=== PATIENT | male | born 1940 | race Caucasian/White ===

== ENCOUNTER → 2016-11-29 | Outpatient (CLI) | payer OTHER | LOC: MMPC 09:00 | PROVIDERS: ATTEND Family Medicine | DX: F51.05 Insomnia due to other mental disorder (principal); F32.0 Major depressive disorder, single episode, mild | CPT/HCPCS: 99213; G0463 ==

== ENCOUNTER 2016-12-18 11:55 | Emergency (ER) | payer OTHER ==
[2016-12-18] MEDS ORDERED: NORMAL SALINE 10 ML SYRINGE FLUSH IVP PRN (12:21)
[2016-12-18] MEDS ORDERED: MORPHINE SULFATE 4 MG/1 ML IVP ONE ×2 (12:21→13:59)
[2016-12-18] MEDS ORDERED: Sodium Chloride 0.9% 1,000 ML PRIMARY IV ONE (12:22)
[2016-12-18 13:20] LABS: BASOPHILS # (AUTO) 0.03 10*3/UL; BASOPHILS % (AUTO) 0.4 % (0-1); EOSINOPHILS % (AUTO) 3.8 % (0-8); HEMATOCRIT 29.3 % (42.0-52.0); HEMOGLOBIN 9.6 g/dL (14.0-18.0); IMM GRAN % (AUTO) 3.2 % (0-5); IMM GRAN# (AUTO) 0.27 10*3/UL; LYMPHOCYTES # (AUTO) 1.14 10*3/uL; LYMPHOCYTES % (AUTO) 13.6 % (10-50); MEAN CORPUSCULAR HEMOGLOBIN 30.7 PG (27-31); MEAN CORPUSCULAR HGB CONC 32.8 g/dL (33-37); MEAN PLATELET VOLUME 7.7 FL (7.4-12.2); MONOCYTES # (AUTO) 0.89 10*3/UL (0.3-0.8); MONOCYTES % (AUTO) 10.6 % (5-15); NEUTROPHILS # (AUTO) 5.73 10*3/UL; NEUTROPHILS % (AUTO) 68.4 % (50-80); RED BLOOD COUNT 3.13 10^6/uL (4.70-6.10); WHITE BLOOD COUNT 8.38 10^3/uL (4.8-10.8)
[2016-12-18 13:23] LABS: PLATELET MORPHOLOGY COMMENT NORMAL MORPHOLOGY (NORM)
[2016-12-18 13:33] LABS: BILIRUBIN,TOTAL 0.4 mg/dL (0.3-1.2); BUN/CREATININE RATIO 9.23 (6-20); CALCIUM 8.5 mg/dL (8.7-10.7); CREATININE 1.3 mg/dL (0.70-1.50); POTASSIUM 3.7 meq/L (3.8-5.2); TOTAL PROTEIN 5.4 g/dL (6.1-8.0)
[2016-12-18 14:03] VITALS: TEMP 96.9
--- NOTE | 2016-12-18 14:07 | PDOC ---
General Adult HPI - General Chief Complaint: General Medical Stated Complaint: COMPLICATIONS S/P SURGERY Date Seen by Provider: 12/18/16 Time Seen by Provider: 13:00 - History of Present Illness Initial Comment: Patient is a very nice 76-year-old gentleman presents to the emergency department with severe pain in his abdomen. Patient states that he had prostate cancer and radiation therapy ended up with radiation inflammation to his bladder and inability to void appropriately and some renal failure secondary to all this therefore ended up having a cystectomy with ileal conduit formation about 2 weeks ago. He ended up with a protracted hospitalization in [place] at the [facility] where he had the procedure done due to some postoperative issues. Ultimately he was let go Sunday i.e. 2 days ago from the hospital and went home and was seemingly doing well. Unfortunately started to experience some pink tinge to his urine last night and then hetal blood in his urine this morning with severe pain associated in his abdomen and around the stoma site this morning. This has continued to be a problem he's had diminished output from the stoma since he noticed a substantial blood. He denies any fever or chills. He denies any flank pain per se. He has not had nausea or vomiting he has not had substantial diarrhea or other bowel changes. Have you received a tetanus shot in the past 10 years?: Unknown - Patient Home Medications Home Medications: Home Medications Aspirin 1 tab PO BID tab 06/01/14 Fenofibrate Nanocrystallized [Fenofibrate] 1 tab PO DAILY tab 06/01/14 Oxybutynin Chloride [Oxybutynin Chloride ER] 1 tab PO BID tab 06/01/14 Ascorbic Acid [Vitamin C] 1 tab PO DAILY 01/25/16 Cyclobenzaprine HCl [Flexeril] 1 tab PO BEDTIME PRN 01/25/16 Dexlansoprazole [Dexilant] 1 tab PO DAILY 01/25/16 Fluticasone Nasal [place] 0.05% [Flonase Nasal [place] 0.05%] 2 spray FELPIA DAILY PRN 01/25/16 Glucosamine/D3/Boswellia Jenn [Osteo Bi-Flex Caplet] 1 tab PO BID 01/25/16 Metamucil Unknown Strength 4 cap PO DAILY 01/25/16 Multivitamin [Multivitamins] 1 tab PO DAILY 01/25/16 Rover-3 Fatty Acids/Fish Oil [Fish Oil 1,000 mg Capsule] 1 tab PO BID 01/25/16 Vitamin B Complex 1 cap PO DAILY 01/25/16 Sotalol [Sorine] 40 mg PO BID #60 tab 01/29/16 Cetirizine HCl [Zyrtec] 10 mg PO DAILY PRN tab 02/07/16 Lactobacillus Combination No.4 [Probiotic] 1 each PO DAILY cap 02/07/16 Mineral Oil [Topical Light Mineral Oil] 25 ml TOPICAL DAILY 02/07/16 Niacin 5,000 mg PO QD tab 02/07/16 Zolpidem Tartrate [Ambien Cr] 1 tab PO QHS PRN #90 tab 08/03/16 Apixaban [Eliquis] 5 mg PO BID #60 tab 08/17/16 Mirtazapine [Remeron] 30 mg PO DAILY #30 tab 10/19/16 - Patient Allergies Allergies/Adverse Reactions: Allergies Allergy/AdvReac Type Severity Reaction Status Date / Time No Known Allergies Allergy Verified 12/18/16 13:04 Past Medical History - heen HEENT History: Denies History, Hard of Hearing Additional HEENT History: READING GLASSES. HAD CATARACT REMOVED Cardiovascular History: Hypertension, Hyperlipidemia Respiratory History: Denies History Additional Respiratory History: SEASONAL ALLERGIES Gastrointestinal History: GERD Additional Genitourinary History: HAD PROSTATECTOMY MARCH 2015/ POST SX INCONTINECNE. HAD PROCEDURE DONE WHERE THEY PLACE A "SHUT OFF VALVE" IN [place]. HE MUST OPEN VALVE IN ORDER TO VOID Endocrine History: Denies History Musculoskeletal History: Arthritis, Back Pain Prosthesis or Implant: Yes (LOWER BACK) Neurological History: Migraines Additional Neurological History: LAST MONTH DEC Blood Disorders: Denies History Psychiatric History: Denies History History of Sexually Transmitted Diseases: No Cancer History: Other (please comment) Cancer Treatment / Date(s) of Treatment: SURGERY History of MDRO: No History of Other Communicable Diseases: No Alcohol Use: Rarely Substance Use Type: None Previous Surgical History: Yes Type / Date of Surgery: MARCH 2015 PROSTATECTOMY/ AUGUST 2015 "VALVE" IN [place] / LUMBAR FUSION/ KELI/ EGD/COLONOSCOPY. left hernia/foot surgery/gallbladder/ prosthesis removal/right knee scope Anesthesia Reactions: Yes (PONV/HAS SCOPE PATCH FROM DR LAN FOR SX) Malignant Hyperthermia: No Significant Family History: No pertinent family hx Past Medical History Reviewed: Reviewed - No Changes ROS - Limitations ROS Limitations: No Limitations Constitution: DENIES: Chills, Fever Cardiovascular: REPORTS: Denies Cardiac Symptoms Respiratory: REPORTS: Denies Resp Symptoms Neurological: REPORTS: Denies Neuro Symptoms General Adult Exam - General Appearance General Appearance: POSITIVE: Alert, Cooperative, No Acute Distress - HEENT HEENT: POSITIVE: Head Inspection Nml, Eyes Inspection Nml, Ears Inspection Nml - Neck Neck: POSITIVE: Normal Inspection - Respiratory Respiratory: POSITIVE: No Respiratory Distress, Breath Sounds Normal - Cardiovascular Cardiovascular: POSITIVE: Regular Rate & Rhythm, No Murmur - Abdomen Additional Abdominal Details: Patient has some mild abdominal distention and some tenderness to palpation especially around the stoma site and also somewhat diffusely in the right side of his abdomen. He does have some rebound and guarding associated with this. - Back Back: NEGATIVE: CVA Tenderness - Skin Skin: POSITIVE: Normal Color, Warm, Dry - Neurological / Psychological Neurological: POSITIVE: Affect Apporpriate, Oriented X3 General Adult Progress - Results Reviewed by me Xrays/CTs/US Reviewed by me: Yes Radiology Findings: CT scan of the abdomen show some postoperative changes with some mild perinephric fat stranding and no clear evidence of obstruction. The CT report is read directly to consulting urologist. Lab Results Reviewed: Yes Lab Results:: Laboratory Results 12/18/16 Range/Units 13:15 WBC 8.38 (4.8-10.8) 10^3/uL RBC 3.13 L (4.70-6.10) 10^6/uL Hgb 9.6 L (14.0-18.0) g/dL Hct 29.3 L (42.0-52.0) % MCV 93.6 H (80-90) FL MCH 30.7 (27-31) PG MCHC 32.8 L (33-37) g/dL RDW Std Deviation 49.3 (39-50) fL RDW Coeff of Jeanmarie 15.0 H (11.5-14.5) % Plt Count 583 H (140-350) 10*3/uL MPV 7.7 (7.4-12.2) FL Immature Gran % (Auto) 3.2 (0-5) % Neut % (Auto) 68.4 (50-80) % Lymph % (Auto) 13.6 (10-50) % Gibson % (Auto) 10.6 (5-15) % Eos % (Auto) 3.8 (0-8) % Baso % (Auto) 0.4 (0-1) % Immature Gran # (Auto) 0.27 10*3/UL Neut # (Auto) 5.73 10*3/UL Lymph # (Auto) 1.14 10*3/uL Gibson # (Auto) 0.89 H (0.3-0.8) 10*3/UL Eos # (Auto) 0.32 10*3/UL Baso # (Auto) 0.03 10*3/UL WBC Morphology Comment Normal morphology (NORM) Plt Morphology Comment Normal morphology (NORM) RBC Morph Comment Normal morphology (NORM) Sodium 141 (135-145) meq/L Potassium 3.7 L (3.8-5.2) meq/L Chloride 106 (98-112) meq/L Carbon Dioxide 23 (23-33) meq/L Anion Gap 12 (5-20) BUN 12 (7-22) mg/dL Creatinine 1.3 (0.70-1.50) mg/dL Estimated GFR (>60 ml/min/1.73m(2)) BUN/Creatinine Ratio 9.23 (6-20) Glucose 109 (78-110) mg/dL Calculated Osmolality 292.0 (267-292) mOsm/kg Calcium 8.5 L (8.7-10.7) mg/dL Total Bilirubin 0.4 (0.3-1.2) mg/dL AST 21 (21-57) IU/L ALT 43 (21-72) IU/L Alkaline Phosphatase 49 (38-126) IU/L Total Protein 5.4 L (6.1-8.0) g/dL Albumin 3.0 L (3.5-4.8) g/dL Globulin 2.4 L (2.50-4.10) g/dL Albumin/Globulin Ratio 1.20 L (1.3-2.0) mg/g - Patient's Progress MDM / ED Course: Patient is feeling better now that he's had some IV fluids some pain medication and after flushing his ileal conduit. I have discussed his case a couple times with his urologist in [place] and at this time she feels confident that we could discharge the patient home watching closely if he worsens at all come back to the emergency department for reevaluation. If he feels like he is doing more poorly than she would be glad to accept him for readmission there. Patient feels confident that he is doing well enough to go home. Patient was evaluated here in the emergency department labs appeared to be very benign white count was normal creatinine was normal CT scan of his abdomen and pelvis was performed which showed no substantial worrisome findings and he had pretty normal output into his stoma bag that was somewhat blood-tinged but of adequate volume after we flushed his ileal conduit with 100 mL of normal saline and a small Golden catheter. Ultimately given that his abdominal pain is improved he has adequate urine output out of his stoma even though it does have some dark appearing blood in it his urologist feels that with benign CT scan in addition to these other findings that he should be safe to be discharged and monitored. He can call to their clinic for further follow-up if he does not feel that he is improving as well as he should or he can return here to the emergency department for reevaluation if he worsens acutely. Patient Care Time - Estimated PCT Patient Care Time (In Minutes): 50 Vital Signs - Recent Vital Signs Vital Signs: Vital Signs (Last 8 hours) Temp Pulse Resp BP Pulse Ox 12/18/16 12:01 96.9 F 73 16 150/80 98 - VS Reviewed Vital Signs Reviewed: Yes Discharge Clinical Impression: Hematuria Abdominal pain Qualifiers: Abdominal location: unspecified location Qualifier Code: (R10.9) Unspecified abdominal pain Discharge Disposition: Discharged to Home Condition: Serious Additional Instructions: Your case has been discussed with your urologist in [place] and recommendation at this point is to watch her symptoms closely. If you have further issues or questions do not hesitate to contact your urologist tomorrow morning and report how you're doing. If however you become substantially worse or are having increasing pain fevers or other substantial complaints do not hesitate to return to the emergency department here for further evaluation. You can continue to use her pain medication but try to make sure your stools do not become hard or you do not become constipated. Make sure you're drinking plenty of fluid to keep your kidneys and ileal conduit flushing. Follow Up With: AROLDO IQBAL [Primary Care Provider] -
--- NOTE | 2016-12-18 16:26 | DI ---
HISTORY: Abdominal pain and bleeding with ileal conduit. COMPARISON: None available. TECHNIQUE: Contiguous axial enhanced images of the abdomen and pelvis were obtained from the lung ba ses through the ischial tuberosities. The images were then submitted for interpretation. FINDINGS: The heart size is normal. There is evidence of minimal atelectasis. The liver and spleen are normal in size and contour and demonstrate no focal abnormalities. There ar e no calcified gallstones identified. The pancreas and adrenal glands are normal. The kidneys are i n anatomic position. Post surgical changes with urinary diversion to the ilium and ureter stent are seen. There is a mild renal pelvis with ureter wall thickening and mild stranding in the perinephric fat. No contrast extravasation. An outflow catheter from the ilium is seen. No contrast accumulat ion in the ilium. The visualized vascular structures are normal. The visualized bowel, mesentery, and omentum are unremarkable without evidence of an acute obstructio n or perforation. A reservoir is seen in the lower pelvis. Status post prostatectomy and cystectomy . Visible penile prosthesis. No abnormal fluid collections. IMPRESSION: 1. Post surgical changes with urinary diversion to the ilium and ureter stent. There is a mild renal pelvis with ureter wall thickening and mild stranding in the perinephric fat. No contrast extravasa tion. An outflow catheter from the ilium is seen. No contrast accumulation in the ilium. 2. A reservoir is seen in the lower pelvis. 3. Status post prostatectomy and cystectomy. Visible penile prosthesis. No abnormal fluid collectio ns. 4. Minimal atelectasis. 5. No other acute findings. NOTIFICATION: The above findings were phoned to Corinne Granger in the ER Department on 12/18/2016 at 06:32 PM EST.
[2016-12-18 18:38] VITALS: RESP 18
== END 2016-12-18 18:25 | disposition home or self-care (01) ==
LOC: ER 11:55
DX: R31.9 Hematuria, unspecified (principal); L76.22 Postprocedural hemorrhage of skin and subcutaneous tissue following other procedure; R10.31 Right lower quadrant pain
CPT/HCPCS: 74177; 80053; 85025; 99283; J2270; J7030

== ENCOUNTER → 2016-12-28 | Outpatient (CLI) | payer OTHER ==
--- NOTE | 2016-12-28 14:50 | EKG ---
[facility] Measurements Intervals [place] Rate: 88 P: 35 UT: 179 QRS: 15 QRSD: 104 T: 43 QT: 373 QTc: 418 Interpretive Statements SINUS RHYTHM Compared to ECG 08/28/2016 16:51:20 Myocardial infarct finding no longer present Electronically Signed On 12-28-16 14:55:38 MST by Ugo Jones [email or web address]
== END ==
LOC: EKG 14:50
PROVIDERS: ATTEND Physician Assistant Medical
DX: I20.9 Angina pectoris, unspecified (principal); R06.02 Shortness of breath
CPT/HCPCS: 93005; 93010

== ENCOUNTER → 2017-01-15 | Outpatient (CLI) | payer OTHER ==
--- NOTE | 2017-01-15 14:24 | DI ---
CT ABDOMEN SCAN WITH IV CONTRAST, 01/15/2017 12:38 PM : Clinical History: Radiation cystitis. Previous Exam: 12/18/2016. Scans are performed from the lower lung bases through the liver and kidneys with IV contrast. 60 ml o f Isovue 300 was injected IV. The lung bases are clear. Coronary artery calcifications are present in the LAD and first diagonal br anch, the left circumflex artery, and throughout the right coronary artery. The liver is normal. The patient is status post cholecystectomy. There is no abnormality of the spleen, pancreas, and adrenal glands. Both kidneys are normal in size, shape, position and contour. There is no hydronephrosis or h ydroureter. Both ureteral stents have been removed. No renal or ureteral calculi are present. The pat ient has an ileal conduit. There are no abnormal retrocrural or periaortic nodes. No ascites is prese nt. READIN. Since the previous exam, both ureteral stents have been removed. There is no hydronephrosis or hy droureter. No renal or ureteral calculi are identified. The patient has an ileal conduit. 2. The exam is otherwise normal. CT PELVIS SCAN WITH IV CONTRAST, 01/15/2017 12:38 PM: Clinical History: See above. Previous Exam: 12/18/2016. Scans are performed from just superior to the umbilicus to the symphysis pubis with IV contrast. This is the same bolus of contrast used for the CT scans of the abdomen. Scans through the lower abdomen and pelvis show no masses or abnormal fluid collections. There is no adenopathy. The appendix is quite small in caliber but normal. The small bowel is unremarkable except for the presence of an ileal conduit in the right lower quadrant. This conduit would be difficult to identify without the assistance from the previous CT scan that had bilateral ureteral catheters pres ent. The colon is normal. There are no hernias. The seminal vesicles are not visualized. There is a s oft tissue structure that may represent a collapsed bladder. The patient has bilateral penile implant s with an apparent fluid reservoir located just deep to the lower portion of the left rectus abdomini s muscle and a second component of this mechanism located in the right scrotal sac. READIN. The seminal vesicles are not visualized and may be surgically absent. There is a soft tissue dens ity that may represent either scar tissue following removal of the bladder or this is the collapsed b ladder. Bilateral penile implants are present. 2. The exam is otherwise normal.
== END ==
LOC: CT 12:30
PROVIDERS: ATTEND Urology
DX: N30.40 Irradiation cystitis without hematuria (principal)
CPT/HCPCS: 74177

== ENCOUNTER → 2017-01-15 | Outpatient (CLI) | payer OTHER ==
[2017-01-15 16:31] LABS: ASPARTATE AMINO TRANSFERASE 27 IU/L (21-57); BILIRUBIN,TOTAL 0.4 mg/dL (0.3-1.2); BLOOD UREA NITROGEN 23 mg/dL (7-22); BUN/CREATININE RATIO 13.52 (6-20); CALCIUM 10.1 mg/dL (8.7-10.7); CHLORIDE 108 meq/L (98-112); CREATININE 1.7 mg/dL (0.70-1.50); GLUCOSE 154 mg/dL (78-110); POTASSIUM 4.9 meq/L (3.8-5.2); SODIUM 136 meq/L (135-145); TOTAL PROTEIN 6.5 g/dL (6.1-8.0)
[2017-01-15 16:39] LABS: BASOPHILS # (AUTO) 0.02 10*3/UL; BASOPHILS % (AUTO) 0.3 % (0-1); HEMATOCRIT 35.2 % (42.0-52.0); HEMOGLOBIN 11.6 g/dL (14.0-18.0); IMM GRAN % (AUTO) 0.2 % (0-5); IMM GRAN# (AUTO) 0.01 10*3/UL; LYMPHOCYTES # (AUTO) 1.69 10*3/uL; LYMPHOCYTES % (AUTO) 25.9 % (10-50); MEAN CORPUSCULAR HEMOGLOBIN 29.4 PG (27-31); MEAN PLATELET VOLUME 9.9 FL (7.4-12.2); MONOCYTES # (AUTO) 0.67 10*3/UL (0.3-0.8); MONOCYTES % (AUTO) 10.3 % (5-15); NEUTROPHILS # (AUTO) 4.01 10*3/UL; NEUTROPHILS % (AUTO) 61.3 % (50-80); RDW COEFFICIENT OF VARIATION 15.8 % (11.5-14.5); RED BLOOD COUNT 3.94 10^6/uL (4.70-6.10); WHITE BLOOD COUNT 6.53 10^3/uL (4.8-10.8)
[2017-01-15 16:41] LABS: PLATELET MORPHOLOGY COMMENT NORMAL MORPHOLOGY (NORM)
== END ==
LOC: MOB LAB 14:48
PROVIDERS: ATTEND Family Medicine
DX: Z48.816 Encounter for surgical aftercare following surgery on the genitourinary system (principal); I48.91 Unspecified atrial fibrillation; N30.40 Irradiation cystitis without hematuria; Z98.890 Other specified postprocedural states
CPT/HCPCS: 36415; 74177; 80053; 85025; 99213; G0463

== ENCOUNTER → 2017-01-18 | Outpatient (CLI) | payer OTHER ==
[2017-01-18 16:30] LABS: BILIRUBIN,URINE SMALL (NEG); CLARITY,URINE CLEAR (CLEAR); GLUCOSE, URINE (UA) NEGATIVE (NEG); LEUKOCYTE ESTERASE ,URINE MODERATE (NEG); NITRATE,URINE NEGATIVE (NEG); OCCULT BLOOD,URINE LARGE (NEG); PROTEIN,URINE 100 mg/dl (NEG); UROBILINOGEN,URINE 0.2 EU/dL (0.2)
[2017-01-18 17:04] LABS: URINE SAMPLE TYPE PEE BAG COLLECTION
[2017-01-18 17:26] LABS: BACTERIA,URINE FEW; SQUAMOUS EPITHELIAL CELL,UR RARE; WBC,URINE 20-30
== END ==
LOC: MOB LAB 16:03
PROVIDERS: ATTEND Family Medicine
DX: R31.9 Hematuria, unspecified (principal)
CPT/HCPCS: 81001

== ENCOUNTER → 2017-01-22 | Outpatient (CLI) | payer OTHER | LOC: LAB 10:08 | PROVIDERS: ATTEND Family Medicine | DX: R31.9 Hematuria, unspecified (principal); R82.99 Other abnormal findings in urine | CPT/HCPCS: 87077; 87088; 87186 ==

== ENCOUNTER → 2017-02-12 | Outpatient (CLI) | payer OTHER ==
[2017-02-12 14:57] LABS: BASOPHILS # (AUTO) 0.01 10*3/UL; BASOPHILS % (AUTO) 0.2 % (0-1); EOSINOPHILS # (AUTO) 0.12 10*3/UL; EOSINOPHILS % (AUTO) 1.8 % (0-8); HEMATOCRIT 32.1 % (42.0-52.0); HEMOGLOBIN 10.7 g/dL (14.0-18.0); LYMPHOCYTES # (AUTO) 1.97 10*3/uL; MEAN CORPUSCULAR HEMOGLOBIN 27.9 PG (27-31); MEAN CORPUSCULAR HGB CONC 33.3 g/dL (33-37); MEAN CORPUSCULAR VOLUME 83.6 FL (80-90); MEAN PLATELET VOLUME 9.4 FL (7.4-12.2); MONOCYTES # (AUTO) 0.83 10*3/UL (0.3-0.8); MONOCYTES % (AUTO) 12.6 % (5-15); NEUTROPHILS # (AUTO) 3.61 10*3/UL; NEUTROPHILS % (AUTO) 54.9 % (50-80); RED BLOOD COUNT 3.84 10^6/uL (4.70-6.10)
[2017-02-12 15:00] LABS: PLATELET MORPHOLOGY COMMENT NORMAL MORPHOLOGY (NORM); RBC MORPHOLOGY COMMENT NORMAL MORPHOLOGY (NORM); WBC MORPHOLOGY COMMENT NORMAL MORPHOLOGY (NORM)
[2017-02-12 15:34] LABS: MAGNESIUM 1.3 mg/dL (1.6-2.4); SERUM ALBUMIN 3.5 g/dL (3.5-4.8)
== END ==
LOC: MOB LAB 13:57
PROVIDERS: ATTEND Family Medicine
DX: I48.91 Unspecified atrial fibrillation (principal); I10 Essential (primary) hypertension; E78.5 Hyperlipidemia, unspecified; G43.A0 Cyclical vomiting, in migraine, not intractable; J30.1 Allergic rhinitis due to pollen; R19.7 Diarrhea, unspecified; Z98.890 Other specified postprocedural states
CPT/HCPCS: 36415; 80053; 83735; 84443; 85025; 99213; G0463; J3301

== ENCOUNTER → 2017-03-01 | Outpatient (CLI) | payer OTHER | LOC: MMPC 10:00 | PROVIDERS: ATTEND Podiatrist Foot & Ankle Surgery | DX: M79.672 Pain in left foot (principal); M20.42 Other hammer toe(s) (acquired), left foot; M21.6X2 Other acquired deformities of left foot; M77.52 Other enthesopathy of left foot and ankle; M20.41 Other hammer toe(s) (acquired), right foot; M21.6X1 Other acquired deformities of right foot; M77.51 Other enthesopathy of right foot and ankle | CPT/HCPCS: 99212; G0463 ==

== ENCOUNTER → 2017-03-05 | Outpatient (CLI) | payer OTHER | LOC: MMPC 09:00 | PROVIDERS: ATTEND Family Medicine | DX: R11.10 Vomiting, unspecified (principal); R63.4 Abnormal weight loss; Z98.890 Other specified postprocedural states | CPT/HCPCS: 99213 ==

== ENCOUNTER → 2017-03-06 | Outpatient (CLI) | payer OTHER | LOC: MMPC 11:11 | PROVIDERS: ATTEND Surgery | DX: R10.84 Generalized abdominal pain (principal); R11.14 Bilious vomiting | CPT/HCPCS: 99202; G0463 ==

== ENCOUNTER 2017-03-07 17:50 | Inpatient (IN) | payer OTHER ==
[2017-03-07] MEDS ORDERED: Sodium Chloride 0.9% 1,000 ML PRIMARY IV ONE (18:00)
[2017-03-07] MEDS ORDERED: MORPHINE SULFATE 4 MG/1 ML IVP ONE (18:00)
[2017-03-07] MEDS ORDERED: ONDANSETRON 4 MG/2 ML VIAL IVP ONE (18:00)
[2017-03-07] MEDS ORDERED: KETOROLAC 15 MG/1 ML VIAL IVP ONE (18:00)
--- NOTE | 2017-03-07 18:08 | PDOC ---
Abdomen/Flank HPI - General Chief Complaint: Abdomen Pain Stated Complaint: VOMITING, FEVER, ABD PAIN SINCE 1300 Date Seen by Provider: 03/07/17 Time Seen by Provider: 18:03 Source: POSITIVE: Patient, Spouse Exam Limitations: POSITIVE: No limitations Nurse's Notes Reviewed & Considered: Yes - History of Present Illness Initial Comments: Patient comes in today with a chief complaint of abdominal pain. Patient with abdominal pain that comes in waves, fevers, chills, nausea vomiting. He states he is passing minimal gas and no bowel movement. He has had this abdominal pain since his ileostomy in November but it has escalated and significantly worse since this weekend. Pain is predominantly in his bilateral lower quadrants with radiation throughout his abdomen. Body Location Affected: REPORTS: Abdomen Timing: REPORTS: Constant, Getting Worse Duration: Other (Ongoing for approximately 4 months but significantly worse over the last 4 days.) Severity: Severe Quality: REPORTS: Cramping, "Pain", Stabbing Abdominal Pain Onset Location: REPORTS: RLQ, LLQ, Suprapubic, Generalized abdomen Abdominal Pain Radiation: REPORTS: Periumbilical Context: REPORTS: None Modifying Factors: improves with: Nothing Associated Symptoms: REPORTS: Chills, Diaphoresis, Fever, Nausea, Vomiting, Constipation Similar Symptoms Previously: Yes Recent Care Received: REPORTS: Denies Any Prior Injuries Related to Current Complaint?: Yes ( ileostomy) - Patient Home Medications Home Medications: Home Medications Aspirin 1 tab PO DAILY tab 06/01/14 Fenofibrate Nanocrystallized [Fenofibrate] 1 tab PO DAILY tab 06/01/14 Multivitamin [Multivitamins] 1 tab PO DAILY 01/25/16 Lactobacillus Combination No.4 [Probiotic] 1 each PO DAILY cap 02/07/16 Atorvastatin Calcium 1 tab PO DAILY tab 12/21/16 Dexlansoprazole [Dexilant] 60 mg PO DAILY #90 cap 02/20/17 Apixaban [Eliquis] 5 mg PO BID #60 tab 02/23/17 Iron,Carbonyl [Iron] 45 mg PO DAILY 03/07/17 Magnesium Oxide [Magnesium] 400 mg PO DAILY 03/07/17 Melatonin 25 mg PO BEDTIME 03/07/17 Sotalol HCl [Sotalol] 40 mg PO BID 03/07/17 - Patient Allergies Allergies/Adverse Reactions: Allergies Allergy/AdvReac Type Severity Reaction Status Date / Time ferrous gluconate Allergy Intermediate ITCHING Verified 03/07/17 21:31 Past Medical History - heen HEENT History: Denies History, Hard of Hearing Additional HEENT History: READING GLASSES. HAD CATARACT REMOVED Cardiovascular History: Hypertension, Hyperlipidemia Respiratory History: Denies History Additional Respiratory History: SEASONAL ALLERGIES Gastrointestinal History: GERD Additional Genitourinary History: HAD PROSTATECTOMY MARCH 2015/ POST SX IN[place]. HAD PROCEDURE DONE WHERE THEY PLACE A "SHUT OFF VALVE" IN [place]. HE MUST OPEN VALVE IN ORDER TO VOID Endocrine History: Denies History Musculoskeletal History: Arthritis, Back Pain Prosthesis or Implant: Yes (LOWER BACK) Neurological History: Migraines Additional Neurological History: LAST MONTH DEC Blood Disorders: Denies History Psychiatric History: Denies History History of Sexually Transmitted Diseases: No Cancer History: Other (please comment) Cancer Treatment / Date(s) of Treatment: SURGERY History of MDRO: No History of Other Communicable Diseases: No Alcohol Use: Rarely Substance Use Type: None Previous Surgical History: Yes Type / Date of Surgery: MARCH 2015 PROSTATECTOMY/ AUGUST 2015 "VALVE" IN [place] / LUMBAR FUSION/ KELI/ EGD/COLONOSCOPY. left hernia/foot surgery/gallbladder/ prosthesis removal/right knee scope Anesthesia Reactions: Yes (PONV/HAS SCOPE PATCH FROM DR LAN FOR SX) Malignant Hyperthermia: No Significant Family History: No pertinent family hx ROS - Limitations ROS Limitations: No Limitations Constitution: REPORTS: Chills, Fever, Diaphoresis Cardiovascular: REPORTS: Denies Cardiac Symptoms Respiratory: REPORTS: Denies Resp Symptoms Neurological: REPORTS: Denies Neuro Symptoms Gastrointestinal: REPORTS: Abdominal Pain, Nausea, Vomitting, Constipation Endocrine: REPORTS: Denies Symptoms Musculoskeletal: REPORTS: Denies MS Symptoms Genitourinary: REPORTS: Other (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 and radiation treatment) Eyes: REPORTS: Denies Symptoms ENT: REPORTS: Denies Symptoms Skin: REPORTS: Denies Skin Symptoms Lympathic: REPORTS: Denies Lympathic Symptoms Immunologic: POSITIVE: Denies Symptoms Psychiatric: POSITIVE: Denies Psych Symptoms Abdominal/Flank Pain PE - General Appearance General Appearance: POSITIVE: Alert, Cooperative, No Evidence of Trauma, Moderate Distress - HEENT HEENT: POSITIVE: Head Inspection Nml, Eyes Inspection Nml, Ears Inspection Nml, Nose Inspection Nml, PERRL, EOMI - Neck Neck: POSITIVE: Normal Inspection, No Apparent Injury - Respiratory Respiratory: POSITIVE: No Respiratory Distress, Breath Sounds Normal, Chest Non- Tender - Cardiovascular Cardiovascular: POSITIVE: Regular Rate and Rhythm, Heart Sounds Normal - Chest Chest: POSITIVE: Non Tender - Abdomen Abdomen: Soft: (All Quadrants), Tenderness Noted: (RLQ), (LLQ), Hyperactive Bowel Sounds: (All Quadrants) (with high-pitched tinkles), Guarding: (LLQ), (RLQ ) - Skin Skin: POSITIVE: Intact, Normal For Race, Warm, Dry, No Rash - Extremities Extremity: Non-Tender: (All Extremities), Normal ROM: (All Extremities), Normal Inspection: (All Extremities), Pelvis Stable: (All Extremities) - Neurological Neurological: POSITIVE: Affect Apporpriate, Oriented X3, Motor Normal, Sensation Normal - Psychological Psychiatric: POSITIVE: Affect Appropriate, Anxious Abdomen Progress - Results Reviewed by me Xrays/CTs/US Reviewed by me: Yes Discussed with Radiologist: Yes Lab Results Reviewed: Yes Lab Results:: Laboratory Results 03/07/17 03/07/17 03/07/17 Range/Units 18:00 18:09 18:15 WBC 8.92 (4.8-10.8) 10^3/uL RBC 3.87 L (4.70-6.10) 10^6/uL Hgb 10.9 L (14.0-18.0) g/dL Hct 33.2 L (42.0-52.0) % MCV 85.8 (80-90) FL MCH 28.2 (27-31) PG MCHC 32.8 L (33-37) g/dL RDW Std Deviation 53.3 H (39-50) fL RDW Coeff of Jeanmarie 17.3 H (11.5-14.5) % Plt Count 534 H (140-350) 10*3/uL MPV 9.0 (7.4-12.2) FL Immature Gran % (Auto) 0.4 (0-5) % Neut % (Auto) 76.9 (50-80) % Lymph % (Auto) 12.7 (10-50) % [place] % (Auto) 8.9 (5-15) % Eos % (Auto) 0.9 (0-8) % Baso % (Auto) 0.2 (0-1) % Immature Gran # (Auto) 0.04 10*3/UL Neut # (Auto) 6.86 10*3/UL Lymph # (Auto) 1.13 10*3/uL [place] # (Auto) 0.79 (0.3-0.8) 10*3/UL Eos # (Auto) 0.08 10*3/UL Baso # (Auto) 0.02 10*3/UL WBC Morphology Comment Normal morphology (NORM) Plt Morphology Comment Normal morphology (NORM) RBC Morph Comment Normal morphology (NORM) VBG pH 7.53 H (7.32-7.42) VBG pCO2 25 L (45-55) mmHg VBG HCO3 21 L (22-26) mmol/L VBG Base Excess -2 (-2-2) MMOL/L Sodium 129 L (135-145) meq/L Potassium 4.5 (3.8-5.2) meq/L Chloride 98 (98-112) meq/L Carbon Dioxide 20 L (23-33) meq/L Anion Gap 11 (5-20) BUN 22 (7-22) mg/dL Creatinine 1.2 (0.70-1.50) mg/dL Estimated GFR (>60 ml/min/1.73m(2)) BUN/Creatinine Ratio 18.33 (6-20) Glucose 103 (78-110) mg/dL Calculated Osmolality 270.0 (267-292) mOsm/kg Lactic Acid 1.1 (0.70-2.10) MMOL/L Calcium 8.9 (8.7-10.7) mg/dL Magnesium 1.7 (1.6-2.4) mg/dL Total Bilirubin 0.5 (0.3-1.2) mg/dL AST 39 (21-57) IU/L ALT 31 (21-72) IU/L Alkaline Phosphatase 43 (38-126) IU/L C-Reactive Protein 4.5 H (0.0-0.9) mg/dL Total Protein 6.7 (6.1-8.0) g/dL Albumin 3.4 L (3.5-4.8) g/dL Globulin 3.3 (2.50-4.10) g/dL Albumin/Globulin Ratio 1.00 L (1.3-2.0) mg/g Ur Collection Type Clean catch urine Urine Color Yellow Urine Clarity Cloudy (CLEAR) Urine pH >=9.0 (5.0-8.5) Ur Specific [place] 1.010 (1.005-1.030) Urine Protein 100 (NEG) mg/dl Urine Glucose (UA) Negative (NEG) mg/dL Urine Ketones Negative (NEG) Urine Occult Blood Large H (NEG) Urine Nitrate Negative (NEG) Urine Bilirubin Negative (NEG) Urine Urobilinogen 0.2 (0.2) EU/dL Ur Leukocyte Esterase Moderate (NEG) Urine RBC 8-10 (NONE) /hpf Urine WBC 8-10 (NONE) Ur Squamous Epith Cells Rare (NONE) Ur Renal Epithelial Cell None (NONE) Urine Crystals Moderate Urine Bacteria Moderate (NONE) Urine Casts None (NONE) Urine Mucus Rare (NONE) Urine Trichomonas None (NONE) Urine Yeast None (NONE) Ur Culture Indicated? Culture set - Patient's Progress Pain Medication Addressed: POSITIVE: Yes Status: POSITIVE: Improved MDM / ED Course: Patient was examined, an IV started, blood drawn and sent to the lab for studies , radiographic examinations were obtained. Patient received IV Toradol, normal saline, Zofran. In addition patient received IV ampicillin and IV Rocephin. Findings: Urinalysis reveals moderate bacteria moderate leukocyte esterase. CT scan shows no acute findings intra-abdominal bleeding. CBC shows a normal white count and a slight anemia with hemoglobin of 10. Sodium is low at 129. Assessment: Urinary tract infection with left-sided hydronephrosis and hydroureter. Abdominal pain. Plan: Admission for IV antibiotics. - Consult Consulting MD will see pt:: POSITIVE: [facility] [place] Admit Counseled: POSITIVE: Patient, Family, RE: Lab Results, RE: Radiology Results, RE : DX Patient Care Time - Estimated PCT Patient Care Time (In Minutes): 45 Vital Signs - VS Reviewed Vital Signs Reviewed: Yes Discharge Clinical Impression: Abdominal pain, Urinary tract infectious disease Discharge Disposition: Admit to Inpatient Condition: Fair Date Decision to Admit to Inpatient: 03/07/17 Time Decision to Admit to Inpatient: 20:30
[2017-03-07 18:17] LABS: VENOUS PH 7.53 (7.32-7.42)
[2017-03-07 18:25] LABS: BASOPHILS # (AUTO) 0.02 10*3/UL; BASOPHILS % (AUTO) 0.2 % (0-1); EOSINOPHILS # (AUTO) 0.08 10*3/UL; EOSINOPHILS % (AUTO) 0.9 % (0-8); HEMATOCRIT 33.2 % (42.0-52.0); HEMOGLOBIN 10.9 g/dL (14.0-18.0); LYMPHOCYTES # (AUTO) 1.13 10*3/uL; MEAN CORPUSCULAR HEMOGLOBIN 28.2 PG (27-31); MEAN CORPUSCULAR HGB CONC 32.8 g/dL (33-37); MEAN CORPUSCULAR VOLUME 85.8 FL (80-90); MONOCYTES # (AUTO) 0.79 10*3/UL (0.3-0.8); MONOCYTES % (AUTO) 8.9 % (5-15); NEUTROPHILS # (AUTO) 6.86 10*3/UL; NEUTROPHILS % (AUTO) 76.9 % (50-80); RED BLOOD COUNT 3.87 10^6/uL (4.70-6.10)
[2017-03-07 18:31] LABS: BILIRUBIN,URINE NEGATIVE (NEG); COLOR,URINE YELLOW; GLUCOSE, URINE (UA) NEGATIVE (NEG); NITRATE,URINE NEGATIVE (NEG); OCCULT BLOOD,URINE LARGE (NEG); PH,URINE >=9.0 (5.0-8.5); PROTEIN,URINE 100 mg/dl (NEG); UROBILINOGEN,URINE 0.2 EU/dL (0.2)
[2017-03-07 18:34] LABS: PLATELET MORPHOLOGY COMMENT NORMAL MORPHOLOGY (NORM); RBC MORPHOLOGY COMMENT NORMAL MORPHOLOGY (NORM); WBC MORPHOLOGY COMMENT NORMAL MORPHOLOGY (NORM)
[2017-03-07 18:40] LABS: BUN/CREATININE RATIO 18.33 (6-20); C-REACTIVE PROTEIN 4.5 mg/dL (0.0-0.9); CALCIUM 8.9 mg/dL (8.7-10.7); MAGNESIUM 1.7 mg/dL (1.6-2.4); SERUM ALBUMIN 3.4 g/dL (3.5-4.8)
[2017-03-07 19:04] LABS: URINE SAMPLE TYPE CLEAN CATCH URINE
[2017-03-07 19:05] LABS: BACTERIA,URINE MODERATE; CLARITY,URINE CLOUDY (CLEAR); SQUAMOUS EPITHELIAL CELL,UR RARE; URINE CRYSTALS MODERATE
--- NOTE | 2017-03-07 20:12 | DI ---
CT ABDOMEN SCAN WITH IV CONTRAST, 03/07/2017 6:00 PM : Clinical History: Abdominal pain. High pitched bowel sounds. The patient has not had a recent bowel m ovement. Previous Exam: 12/18/2016; 01/15/2017. Scans are performed from the lower lung bases through the liver and kidneys with IV contrast. 75 ml o f Isovue 300 was injected IV. No oral or rectal contrast was ordered. Delayed scans were obtained jus t under one hour post injection. The lung bases are clear. There are calcifications in the proximal and middle thirds of the LAD, the proximal portion of the obtuse marginal artery, and in the proximal half of the right coronary artery . The liver is normal. The patient is status post cholecystectomy and the common bile duct measures 6 mm. There is no abnormality of the spleen, pancreas, and adrenal glands. Both kidneys are normal in size, shape, position and contour. There is no right hydronephrosis or hydroureter. This patient is s tatus post resection of the bladder with a loop ileostomy. There is mild left hydroureter and hydrone phrosis similar to that visualized on the scans of 12/18/2016, when there were bilateral ureteral sten ts present. There isolated loop of small bowel used to create the pseudo-bladder is unremarkable. The re are no abnormal retrocrural or periaortic nodes. No ascites is present. READIN. Status post resection of the bladder. There is a loop ileostomy for creation of a pseudo-bladder. The right kidney shows no hydronephrosis and there is no hydroureter. The left kidney has mild hydro nephrosis and hydroureter. No urine/contrast is present in the anastomotic site of the right ureter. There is urine/contrast in the loop ileostomy in the ileostomy bag. 2. The scans are otherwise normal. CT PELVIS SCAN WITH IV CONTRAST, 03/07/2017 6:00 PM: Clinical History: See above. Previous Exam: 12/18/2016; 01/15/2017. Scans are performed from just superior to the umbilicus to the symphysis pubis with IV contrast. This is the same bolus of contrast used for the CT scans of the abdomen. Scans through the lower abdomen and pelvis show no masses or abnormal fluid collections. There is no adenopathy. The appendix was visualized on the previous study but is not seen on the current exam. Th ere is no inflammatory mass either in the cecal tip or in the right lower quadrant. The small bowel i s otherwise normal. The colon is also normal. There is a very small umbilical hernia through which on ly mesenteric fat has herniated. The patient has a penile implant in the reservoir is located in the left lower quadrant. Scans do not extend below the symphysis pubis. READIN. There is no bowel obstruction. 2. There is a reservoir in the left lower quadrant for a penile implant.
[2017-03-07] MEDS ORDERED: cefTRIAXone Inj 2 GM in Sodium Chloride 0.9% 100 ML IV ONE (20:24)
[2017-03-07] MEDS ORDERED: AMPICILLIN 250 MG VIAL IVP SCH (20:30)
[2017-03-07] MEDS ORDERED: LIDOCAINE W/ SODIUM BICARB 0.5 ML SYR SUBD PRN (21:45)
[2017-03-07] MEDS ORDERED: ONDANSETRON 4 MG/2 ML VIAL IVP PRN (21:45)
[2017-03-07] MEDS ORDERED: NORMAL SALINE 10 ML SYRINGE FLUSH IVP PRN (21:45)
[2017-03-07] MEDS ORDERED: Sotalol Tab 80 MG TAB PO ONE (21:53)
[2017-03-07] MEDS ORDERED: Metoclopramide Inj 10 MG/2 ML VIAL IVP PRN (21:54)
[2017-03-07] MEDS ORDERED: MORPHINE SULFATE 2 MG/1 ML IVP PRN (21:55)
[2017-03-07] MEDS ORDERED: BENZONATATE 100 MG CAPSULE PO PRN (22:05)
--- NOTE | 2017-03-07 22:08 | PDOC ---
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 In the ER he had UA, blood cultures and a CT of the abdomen there was abnormality in the urine and they suspected urinary tract infection and he was admitted. The patient did report however that he's been having abdominal pain since his surgery back in November, today's abdominal pain is very similar to what he been having felt in the mid abdomen doesn't radiate, the frequency of which is variable sometimes last all day sometimes last less and that and he doesn't have it every day usually takes Motrin for it. He he said that his the pain tends to start first with a cough which he's been having also since November . The abdominal pain is made worse by the cough in addition he would have also nausea and vomiting. He lost 60 pounds since November. Usually his diet consists now mainly of ensure and liquid diets. He was seen by Dr. Freitas 2 days ago for evaluation of his abdominal pain there was a plan for him to have small bowel follow through on Sunday and if it was negative the he'll have EGD and colonoscopy. By time he came into the floor he said his abdominal pain is improved. For the cough he started taking Tessalon Perles and that seems to help. Is not sure whether he had an x-ray done for it Past Medical History Medical History: 1. Hypertension. 2. Hypercholesterolemia. 3. Prostate cancer with previous prostate surgery. 4. Paroxysmal A. fib. 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 Surgical History: 1. Prostate surgery. 2. Previous back surgery. 3. Cholecystectomy. 4. Status post cystectomy and ileal conduit formation November 2016 Family History: Reviewed an Not Pertinent Past Social History: Doesn't smoke doesn't drink known drugs. Tobacco Use: Never Smoker Substance Use Type: None Medication / Allergies Home Medications: Home Medications Medication Instructions Recorded Confirmed Type Aspirin 1 tab PO DAILY tab 06/01/14 03/07/17 History Fenofibrate Nanocrystallized 1 tab PO DAILY tab 06/01/14 03/07/17 History [Fenofibrate] Multivitamin [Multivitamins] 1 tab PO DAILY 01/25/16 03/07/17 History Lactobacillus Combination No.4 1 each PO DAILY cap 02/07/16 03/07/17 History [Probiotic] Atorvastatin Calcium 1 tab PO DAILY tab 12/21/16 03/07/17 History Dexlansoprazole [Dexilant] 60 mg PO DAILY #90 cap 02/20/17 03/07/17 Clinic Apixaban [Eliquis] 5 mg PO BID #60 tab 02/23/17 03/07/17 Clinic Iron,Carbonyl [Iron] 45 mg PO DAILY 03/07/17 03/07/17 History Magnesium Oxide [Magnesium] 400 mg PO DAILY 03/07/17 03/07/17 History Melatonin 25 mg PO BEDTIME 03/07/17 03/07/17 History Sotalol HCl [Sotalol] 40 mg PO BID 03/07/17 03/07/17 History Allergies/Adverse Reactions: Allergies Allergy/AdvReac Type Severity Reaction Status Date / Time ferrous gluconate Allergy Intermediate ITCHING Verified 03/07/17 21:31 Review of Systems - Review of Systems All Systems: Reviewed & No Additional Complaints Except as Stated Exam - General General Appearance: POSITIVE: No Acute Distress, Cooperative - Head Head Exam: POSITIVE: Normal Inspection, Atraumatic - Eye Eye Exam: POSITIVE: Normal Appearance - ENT ENT Exam: POSITIVE: Normal Exam - Neck Neck Exam: POSITIVE: Normal Inspection - Respiratory Respiratory Exam: POSITIVE: Clear to Auscultation - Bilaterally - Cardiovascular Cardiovascular Exam: POSITIVE: RRR - GI/Abdominal GI/Abdominal Exam: POSITIVE: Normal Bowel Sounds, Non Tender, Non Distended, Soft Additional GI/Abdominal Exam Details: Urostomy bag in the lower mid abdomen - Rectal Rectal Exam: POSITIVE: Deferred - External Exam: POSITIVE: Deferred - Extremities Extremities Exam: POSITIVE: Normal Inspection - Back Back Exam: POSITIVE: Normal Inspection - Neurological Neurological Exam: POSITIVE: Alert, Oriented x 3, CN II-XII Intact, Moves All Extremities Equally - Psychiatric Psychiatric Exam: POSITIVE: Normal Affect - Integumentary Integumentary Exam: POSITIVE: Normal Color Results - Labs CBC and BMP: 03/07/17 18:15 03/07/17 18:15 - Imaging Status: Report Reviewed by Me (CT of the abdomen showed status post resection of the bladder, there is a new ileostomy for the creation of pseudo-bladder. The right kidney shows no hydronephrosis and there is no hydroureter. The left kidney has mild hydronephrosis and hydroureter.) Assessment and Plan - Assessment / Plan Additional Assessment/Plan Details: Assessment and plan 1. Possible urinary tract infection, there is abnormality in the urine and with the fever that he had I think will assume this is a complicated urinary tract infection we'll treat as such I saw back in January he had a growth of both Pseudomonas and enterococcus in the urine so will put him on cefepime and Unasyn until we have culture results. Regarding the abdominal pain this is been going on since November, Dr. Freitas was planning to do more testing will talk to him in the morning and see his opinion about ordering the test while he is here, I don't think sure even if he has urinary tract infection that would explain the abdominal pain that is being going on since November 2. History of A. fib continue previous medications 3. Hyperlipidemia continue present medications 4. He is reporting cough since November I don't see chest x-ray done will order x-ray for him in the morning. Photo / Body Diagrams - Uploaded Photos Uploaded Photos:
[2017-03-07] MEDS: Zolpidem Tab 5 MG TAB PO PRN (22:21)
[2017-03-07] MEDS: Sodium Chloride 0.9% 1,000 ML PRIMARY IV SCH (22:47)
[2017-03-07] MEDS: Ampicillin/Sulbactam Inj 3 GM in Sodium Chloride 0.9% 100 ML IV SCH (22:48)
[2017-03-07] MEDS: Cefepime Inj 2 GM in Sodium Chloride 0.9% 100 ML IV SCH (23:38)
[2017-03-08] MEDS: ACETAMINOPHEN 325 MG TABLET PO PRN ×2 (00:18→20:33)
[2017-03-08] MEDS: Ampicillin/Sulbactam Inj 3 GM in Sodium Chloride 0.9% 100 ML IV SCH (04:05)
[2017-03-08] MEDS ORDERED: Sodium Chloride 0.9% 250 ML IV ONE (04:23)
[2017-03-08 04:57] LABS: BASOPHILS # (AUTO) 0.02 10*3/UL; BASOPHILS % (AUTO) 0.2 % (0-1); EOSINOPHILS # (AUTO) 0.03 10*3/UL; EOSINOPHILS % (AUTO) 0.3 % (0-8); HEMATOCRIT 31.6 % (42.0-52.0); HEMOGLOBIN 10.2 g/dL (14.0-18.0); LYMPHOCYTES # (AUTO) 0.81 10*3/uL; MEAN CORPUSCULAR HEMOGLOBIN 27.8 PG (27-31); MEAN CORPUSCULAR HGB CONC 32.3 g/dL (33-37); MEAN CORPUSCULAR VOLUME 86.1 FL (80-90); MEAN PLATELET VOLUME 9.6 FL (7.4-12.2); MONOCYTES # (AUTO) 0.83 10*3/UL (0.3-0.8); MONOCYTES % (AUTO) 7.5 % (5-15); NEUTROPHILS # (AUTO) 9.37 10*3/UL; NEUTROPHILS % (AUTO) 84.4 % (50-80); RED BLOOD COUNT 3.67 10^6/uL (4.70-6.10)
[2017-03-08] MEDS ORDERED: Sodium Chloride 0.9% 500 ML IV ONE ×2 (04:57→05:40)
[2017-03-08 05:03] LABS: PLATELET MORPHOLOGY COMMENT NORMAL MORPHOLOGY (NORM); RBC MORPHOLOGY COMMENT NORMAL MORPHOLOGY (NORM); WBC MORPHOLOGY COMMENT NORMAL MORPHOLOGY (NORM)
[2017-03-08 05:09] LABS: BLOOD UREA NITROGEN 23 mg/dL (7-22); BUN/CREATININE RATIO 13.52 (6-20); CALCIUM 8.8 mg/dL (8.7-10.7)
[2017-03-08] MEDS ORDERED: NOREPINEPHRINE BITARTRATE 4 MG/4 ML VIAL IV ONE (06:13)
[2017-03-08] MEDS: Sodium Chloride 0.9% 1,000 ML PRIMARY IV SCH ×3 (06:22→18:40)
[2017-03-08] MEDS: Norepinephrine Drip 8 MG in D5W 250 ML IV SCH ×3 (06:38→17:15)
[2017-03-08] MEDS ORDERED: Vancomycin-PHA to Dose IV PRN (06:42)
[2017-03-08] MEDS ORDERED: Sodium Chloride 0.9% 500 ML PRIMARY IV ONE (06:45)
--- NOTE | 2017-03-08 06:59 | EKG ---
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 No acute injury pattern. Electronically Signed On 03-12-17 10:24:29 MDT by Valente Fowler MD [email or web address]
[2017-03-08] MEDS: Cefepime Inj 2 GM in Sodium Chloride 0.9% 100 ML IV SCH ×3 (07:25→23:20)
[2017-03-08] MEDS ORDERED: DEXAMETHASONE SOD PHOSPHATE 4 MG/1 ML VIAL IVP ONE (07:26)
--- NOTE | 2017-03-08 08:07 | DI ---
AP CHEST X-RAY, 03/08/2017 6:30 AM : Clinical History: Cough. Previous Exam: None at this facility. There is no acute soft tissue or bony abnormality. Heart size is normal. The right diaphragm is mildl y elevated. There are some streaky densities in the right lower lung field consistent with atelectasi s. There is no acute infiltrate or effusion. Mediastinal structures are normal. There are no pulmonar y nodules. Reading: Minimal streaky atelectasis in the right lower lung field. The exam is otherwise normal.
[2017-03-08] MEDS: Sotalol Tab 80 MG TAB PO SCH ×2 (08:13→20:32)
[2017-03-08] MEDS: MAGNESIUM OXIDE 400 MG TABLET PO SCH (08:13)
[2017-03-08] MEDS: ASPIRIN 81 MG (BABY) CHEWABLE TABLET PO SCH (08:13)
[2017-03-08] MEDS: Apixaban 5 MG TABLET PO SCH ×2 (08:13→20:34)
[2017-03-08] MEDS: Multivitamin Tab 1 TAB PO SCH (08:13)
[2017-03-08] MEDS: PANTOPRAZOLE 40 MG TABLET PO SCH (08:13)
[2017-03-08] MEDS: FENOFIBRATE 145 MG TABLET PO SCH (08:13)
[2017-03-08] MEDS ORDERED: ALBUMIN HUMAN IV ONE (10:45)
[2017-03-08] MEDS ORDERED: Sodium Chloride 0.9% 1,000 ML PRIMARY IV ONE (10:46)
--- NOTE | 2017-03-08 10:55 | PDOC(PROG) ---
Interval History: Patient has no complaints no chest pain nausea vomiting feels much better than earlier this morning Objective : Data - Labs CBC and BMP: 03/08/17 04:16 03/08/17 04:16 Labs - Last 24 Hours: Laboratory Results 03/08/17 03/08/17 03/08/17 Range/Units 04:16 06:26 08:05 WBC 11.09 H (4.8-10.8) 10^3/uL RBC 3.67 L (4.70-6.10) 10^6/uL Hgb 10.2 L (14.0-18.0) g/dL Hct 31.6 L (42.0-52.0) % MCV 86.1 (80-90) FL MCH 27.8 (27-31) PG MCHC 32.3 L (33-37) g/dL RDW Std Deviation 54.7 H (39-50) fL RDW Coeff of Jeanmarie 17.7 H (11.5-14.5) % Plt Count 439 H (140-350) 10*3/uL MPV 9.6 (7.4-12.2) FL Immature Gran % (Auto) 0.3 (0-5) % Neut % (Auto) 84.4 H (50-80) % Lymph % (Auto) 7.3 L (10-50) % [place] % (Auto) 7.5 (5-15) % Eos % (Auto) 0.3 (0-8) % Baso % (Auto) 0.2 (0-1) % Immature Gran # (Auto) 0.03 10*3/UL Neut # (Auto) 9.37 10*3/UL Lymph # (Auto) 0.81 10*3/uL Todd # (Auto) 0.83 H (0.3-0.8) 10*3/UL Eos # (Auto) 0.03 10*3/UL Baso # (Auto) 0.02 10*3/UL WBC Morphology Comment Normal morphology (NORM) Plt Morphology Comment Normal morphology (NORM) RBC Morph Comment Normal morphology (NORM) Sodium 136 (135-145) meq/L Potassium 4.4 (3.8-5.2) meq/L Chloride 105 (98-112) meq/L Carbon Dioxide 21 L (23-33) meq/L Anion Gap 10 (5-20) BUN 23 H (7-22) mg/dL Creatinine 1.7 H (0.70-1.50) mg/dL Estimated GFR Cut And Cover Line Worker BUN/Creatinine Ratio 13.52 (6-20) Glucose 148 H (78-110) mg/dL Calculated Osmolality 288.0 (267-292) mOsm/kg Lactic Acid 0.8 (0.70-2.10) MMOL/L Calcium 8.8 (8.7-10.7) mg/dL PSA Screen < 0.064 (0.006-4.00) ng/ml Objective : Exam - General General Appearance: Cooperative - Eye Eye Exam: Normal Appearance - Respiratory Respiratory Exam: Clear to Auscultation - Bilaterally, Breathing Non Labored, Normal To Percussion, Normal to Percussion and Palpation - Cardiovascular Cardiovascular Exam: RRR, No Murmur, No Clicks, No Gallops - GI/Abdominal GI/Abdominal Exam: Normal Bowel Sounds, Non Tender, Non Distended - Extremities Extremities Exam: No Clubbing Present, No Edema Present, No Cyanosis Present Assessment and Plan - Patient Problems (1) Urinary tract infectious disease Current Visit: Yes Status: Acute (2) Sepsis associated hypotension Current Visit: Yes Status: Acute (3) Hypotension Current Visit: Yes Status: Acute - Assessment / Plan Additional Assessment/Plan Details: #1 sepsis secondary to UTI with hypotension and elevated white count continue cefepime and await cultures infectious disease was consulted by Dr. Romna. CT scan of his abdomen and pelvis showed no acute findings just mild the hydronephrosis on the left we will do an ultrasound of his kidneys as well. Chest x-ray no acute findings #2 hypotension secondary to sepsis most likely source urine we will bolus 1 more liter of fluid give him 1 dose of albumin hopefully we can get him off the levo fed considering he has some acute renal failure most likely secondary to the hypotension #3 history of A. fib continue previous medications #4 hyperlipidemia continue previous medications #5 acute kidney injury most likely secondary to hypotension Patient condition was discussed with apple Bone we discussed the patient's plan of action all in agreement Photo / Body Diagrams - Uploaded Photos Uploaded Photos:
--- NOTE | 2017-03-08 11:03 | CONSULT ---
Consult Note - Consult Consult Date: 03/08/17 Reason for Consult: PreOp Consulation : General Surgery Requesting Physician: Dr. Logan Primary Care Provider: Cam Baird MD - History of Present Illness History of Present Illness: Patient is admitted the hospital for persistent nausea vomiting and abdominal pain. Again patient has been having this discomfort ever since he had his bladder resection and ileal conduit. Patient see me a couple days ago and would do an upper GI with small bowel follow-through. He has not had this done as to date. CT scan is [place] unremarkable except he has a dilated left ureter. Patient also has a positive urinalysis. Indicating a UTI Past Medical History Medical History: 1. Hypertension. 2. Hypercholesterolemia. 3. Prostate cancer with previous prostate surgery. 4. Paroxysmal A. fib. 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 Surgical History: 1. Prostate surgery. 2. Previous back surgery. 3. Cholecystectomy. 4. Status post cystectomy and ileal conduit formation November 2016 Family History: Reviewed an Not Pertinent Past Social History: Doesn't smoke doesn't drink known drugs. Tobacco Use: Never Smoker Substance Use Type: None Medication / Allergies Home Medications: Home Medications Medication Instructions Recorded Confirmed Type Aspirin 1 tab PO DAILY tab 06/01/14 03/07/17 History Fenofibrate Nanocrystallized 1 tab PO DAILY tab 06/01/14 03/07/17 History [Fenofibrate] Multivitamin [Multivitamins] 1 tab PO DAILY 01/25/16 03/07/17 History Lactobacillus Combination No.4 1 each PO DAILY cap 02/07/16 03/07/17 History [Probiotic] Atorvastatin Calcium 1 tab PO DAILY tab 12/21/16 03/07/17 History Dexlansoprazole [Dexilant] 60 mg PO DAILY #90 cap 02/20/17 03/07/17 Clinic Apixaban [Eliquis] 5 mg PO BID #60 tab 02/23/17 03/07/17 Clinic Iron,Carbonyl [Iron] 45 mg PO DAILY 03/07/17 03/07/17 History Magnesium Oxide [Magnesium] 400 mg PO DAILY 03/07/17 03/07/17 History Melatonin 25 mg PO BEDTIME 03/07/17 03/07/17 History Sotalol HCl [Sotalol] 40 mg PO BID 03/07/17 03/07/17 History Allergies/Adverse Reactions: Allergies Allergy/AdvReac Type Severity Reaction Status Date / Time ferrous gluconate Allergy Intermediate ITCHING Verified 03/07/17 21:31 Exam - Vitals Vital Signs: Vital Signs Temperature 97.6 F Temperature Source Temporal Artery Scan Pulse Rate [Telemetry] 77 Pulse Rate [Pulse Oximeter 93 Right] Pulse Rate 83 Respiratory Rate 20 Blood Pressure [Right Arm] 72/42 Blood Pressure [Left Arm] 106/68 Pulse Ox 94 Oxygen Delivery Method Room Air Height 6 ft 2 in Weight 84.459 kg - General General Appearance: POSITIVE: No Acute Distress, Cooperative - Respiratory Respiratory Exam: POSITIVE: Clear to Auscultation - Bilaterally - Cardiovascular Cardiovascular Exam: POSITIVE: RRR - GI/Abdominal GI/Abdominal Exam: POSITIVE: Normal Bowel Sounds, Non Tender, Non Distended, Soft Results - Labs CBC and BMP: 03/08/17 04:16 03/08/17 04:16 Labs - Last 24 Hours: Laboratory Results 03/08/17 03/08/17 03/08/17 Range/Units 04:16 06:26 08:05 WBC 11.09 H (4.8-10.8) 10^3/uL RBC 3.67 L (4.70-6.10) 10^6/uL Hgb 10.2 L (14.0-18.0) g/dL Hct 31.6 L (42.0-52.0) % MCV 86.1 (80-90) FL MCH 27.8 (27-31) PG MCHC 32.3 L (33-37) g/dL RDW Std Deviation 54.7 H (39-50) fL RDW Coeff of Jeanmarie 17.7 H (11.5-14.5) % Plt Count 439 H (140-350) 10*3/uL MPV 9.6 (7.4-12.2) FL Immature Gran % (Auto) 0.3 (0-5) % Neut % (Auto) 84.4 H (50-80) % Lymph % (Auto) 7.3 L (10-50) % [place] % (Auto) 7.5 (5-15) % Eos % (Auto) 0.3 (0-8) % Baso % (Auto) 0.2 (0-1) % Immature Gran # (Auto) 0.03 10*3/UL Neut # (Auto) 9.37 10*3/UL Lymph # (Auto) 0.81 10*3/uL [place] # (Auto) 0.83 H (0.3-0.8) 10*3/UL Eos # (Auto) 0.03 10*3/UL Baso # (Auto) 0.02 10*3/UL WBC Morphology Comment Normal morphology (NORM) Plt Morphology Comment Normal morphology (NORM) RBC Morph Comment Normal morphology (NORM) Sodium 136 (135-145) meq/L Potassium 4.4 (3.8-5.2) meq/L Chloride 105 (98-112) meq/L Carbon Dioxide 21 L (23-33) meq/L Anion Gap 10 (5-20) BUN 23 H (7-22) mg/dL Creatinine 1.7 H (0.70-1.50) mg/dL Estimated GFR Bran Mixer BUN/Creatinine Ratio 13.52 (6-20) Glucose 148 H (78-110) mg/dL Calculated Osmolality 288.0 (267-292) mOsm/kg Lactic Acid 0.8 (0.70-2.10) MMOL/L Calcium 8.8 (8.7-10.7) mg/dL PSA Screen < 0.064 (0.006-4.00) ng/ml Assessment and Plan - Patient Problems (1) Abdominal pain Current Visit: Yes Status: Acute (2) Nausea & vomiting Current Visit: Yes Status: Acute - Assessment / Plan Additional Assessment/Plan Details: At this point I do not think patient has acute surgical problem. Would recommend that he get his upper GI with small bowel follow-through therefore we can look see if he has a partial obstruction and/or ulcer disease. He may need a referral back to his urologist about the dilated ureter
[2017-03-08] MEDS: Zolpidem Tab 5 MG TAB PO PRN (20:33)
[2017-03-08] MEDS ORDERED: ATORVASTATIN 20 MG TABLET PO SCH (21:00)
[2017-03-09] MEDS: Sodium Chloride 0.9% 1,000 ML PRIMARY IV SCH ×2 (02:07→10:30)
[2017-03-09] MEDS: PANTOPRAZOLE 40 MG TABLET PO SCH (06:41)
[2017-03-09] MEDS: Cefepime Inj 2 GM in Sodium Chloride 0.9% 100 ML IV SCH (06:41)
[2017-03-09 07:15] LABS: HEMATOCRIT 25.1 % (42.0-52.0); HEMOGLOBIN 8.1 g/dL (14.0-18.0); MEAN CORPUSCULAR HEMOGLOBIN 28.2 PG (27-31); MEAN CORPUSCULAR HGB CONC 32.3 g/dL (33-37); MEAN CORPUSCULAR VOLUME 87.5 FL (80-90); RED BLOOD COUNT 2.87 10^6/uL (4.70-6.10)
[2017-03-09 07:16] LABS: BASOPHILS # (AUTO) 0.01 10*3/UL; BASOPHILS % (AUTO) 0.1 % (0-1); EOSINOPHILS # (AUTO) 0.15 10*3/UL; EOSINOPHILS % (AUTO) 1.9 % (0-8); MEAN PLATELET VOLUME 9.2 FL (7.4-12.2); MONOCYTES % (AUTO) 10.4 % (5-15); NEUTROPHILS # (AUTO) 5.53 10*3/UL; NEUTROPHILS % (AUTO) 71.7 % (50-80); PLATELET MORPHOLOGY COMMENT NORMAL MORPHOLOGY (NORM); RBC MORPHOLOGY COMMENT NORMAL MORPHOLOGY (NORM); WBC MORPHOLOGY COMMENT NORMAL MORPHOLOGY (NORM)
[2017-03-09 07:38] LABS: BUN/CREATININE RATIO 17.27 (6-20); CALCIUM 8.7 mg/dL (8.7-10.7); SERUM ALBUMIN 2.5 g/dL (3.5-4.8)
[2017-03-09] MEDS ORDERED: Levofloxacin 750mg (Premix) 750 MG in Dextrose 1 BAG IV SCH (09:00)
--- NOTE | 2017-03-09 10:13 | PDOC(PROG) ---
Interval History: Feels much better has no complaints patient is ambulating without any issues Objective : Data - Labs CBC and BMP: 03/09/17 07:13 03/09/17 07:13 Labs - Last 24 Hours: Laboratory Results 03/09/17 Range/Units 07:13 WBC 7.71 (4.8-10.8) 10^3/uL RBC 2.87 L (4.70-6.10) 10^6/uL Hgb 8.1 L (14.0-18.0) g/dL Hct 25.1 L (42.0-52.0) % MCV 87.5 (80-90) FL MCH 28.2 (27-31) PG MCHC 32.3 L (33-37) g/dL RDW Std Deviation 55.9 H (39-50) fL RDW Coeff of Jeanmarie 18.0 H (11.5-14.5) % Plt Count 483 H (140-350) 10*3/uL MPV 9.2 (7.4-12.2) FL Immature Gran % (Auto) 0.3 (0-5) % Neut % (Auto) 71.7 (50-80) % Lymph % (Auto) 15.6 (10-50) % [place] % (Auto) 10.4 (5-15) % Eos % (Auto) 1.9 (0-8) % Baso % (Auto) 0.1 (0-1) % Immature Gran # (Auto) 0.02 10*3/UL Neut # (Auto) 5.53 10*3/UL Lymph # (Auto) 1.20 10*3/uL [place] # (Auto) 0.80 (0.3-0.8) 10*3/UL Eos # (Auto) 0.15 10*3/UL Baso # (Auto) 0.01 10*3/UL WBC Morphology Comment Normal morphology (NORM) Plt Morphology Comment Normal morphology (NORM) RBC Morph Comment Normal morphology (NORM) Sodium 138 (135-145) meq/L Potassium 4.4 (3.8-5.2) meq/L Chloride 113 H (98-112) meq/L Carbon Dioxide 18 L (23-33) meq/L Anion Gap 7 (5-20) BUN 19 (7-22) mg/dL Creatinine 1.1 (0.70-1.50) mg/dL Estimated GFR (>60 ml/min/1.73m(2)) BUN/Creatinine Ratio 17.27 (6-20) Glucose 83 (78-110) mg/dL Calculated Osmolality 286.0 (267-292) mOsm/kg Calcium 8.7 (8.7-10.7) mg/dL Total Bilirubin 0.4 (0.3-1.2) mg/dL AST 37 (21-57) IU/L ALT 35 (21-72) IU/L Alkaline Phosphatase 28 L (38-126) IU/L Total Protein 5.0 L (6.1-8.0) g/dL Albumin 2.5 L (3.5-4.8) g/dL Globulin 2.5 (2.50-4.10) g/dL Albumin/Globulin Ratio 1.00 L (1.3-2.0) mg/g Objective : Exam - General General Appearance: Cooperative - Head Head Exam: Normal Inspection - Eye Eye Exam: Normal Appearance - Respiratory Respiratory Exam: Clear to Auscultation - Bilaterally, Breathing Non Labored, Normal To Percussion - Cardiovascular Cardiovascular Exam: RRR, No Murmur, No Clicks, No Gallops - GI/Abdominal GI/Abdominal Exam: Normal Bowel Sounds, Non Distended, Soft Assessment and Plan - Patient Problems (1) Urinary tract infectious disease Current Visit: Yes Status: Acute Comment: Continue IV antibiotics I will switchto iv levaquin I will also order ultrasound of his kidneys considering he had the left hydroureter on CT scan (2) Sepsis associated hypotension Current Visit: Yes Status: Acute Comment: resolved (3) Hypotension Current Visit: Yes Status: Acute Comment: Resolved Photo / Body Diagrams - Uploaded Photos Uploaded Photos:
[2017-03-09] MEDS: Multivitamin Tab 1 TAB PO SCH (10:17)
[2017-03-09] MEDS: Sotalol Tab 80 MG TAB PO SCH ×2 (10:17→20:45)
[2017-03-09] MEDS: ASPIRIN 81 MG (BABY) CHEWABLE TABLET PO SCH (10:17)
[2017-03-09] MEDS: MAGNESIUM OXIDE 400 MG TABLET PO SCH (10:18)
[2017-03-09] MEDS: FENOFIBRATE 145 MG TABLET PO SCH (10:18)
[2017-03-09] MEDS: Apixaban 5 MG TABLET PO SCH ×2 (10:18→20:46)
[2017-03-09] MEDS ORDERED: HYDROCORTISONE 25 MG SUPPOSITORY RECTAL PRN (11:11)
[2017-03-09] MEDS ORDERED: LIDOCAINE W/ SODIUM BICARB 0.5 ML SYR SUBD PRN (13:12)
[2017-03-09] MEDS: Levofloxacin 750mg (Premix) 750 MG in Dextrose 1 BAG IV SCH (13:20)
[2017-03-09] MEDS: NORMAL SALINE 10 ML SYRINGE FLUSH IVP PRN (13:20)
[2017-03-09] MEDS: BENZONATATE 100 MG CAPSULE PO PRN ×2 (13:36→20:46)
--- NOTE | 2017-03-09 16:05 | DI ---
BILATERAL RENAL ULTRASOUND, 03/09/2017 10:27 AM: Clinical History: Hydronephrosis noted on a CT scan involving the left kidney. The patient has a loop ileostomy and has had resection of the bladder. Previous Exam: None at this facility. Scans are performed through both kidneys in multiple projections. The right kidney measures 111 mm, a nd the left kidney measures 117 mm. Small cortical cysts are present in both kidneys. There is no rig ht hydronephrosis or hydroureter. The left ureter is mildly dilated and there is mild hydronephrosis. Perfusion to both kidneys is symmetric and normal. The surgically created "bladder" from the ileum i s not visualized. No perinephric fluid collections are present. Readin. There is mild hydronephrosis and hydroureter on the left side. The right kidney and ureter are no rmal. 2. The loop ileostomy is not identified.
[2017-03-09] MEDS: ACETAMINOPHEN 325 MG TABLET PO PRN (16:38)
[2017-03-09] MEDS: Zolpidem Tab 5 MG TAB PO PRN (20:46)
[2017-03-09] MEDS: ATORVASTATIN 20 MG TABLET PO SCH (20:47)
[2017-03-10] MEDS: ACETAMINOPHEN 325 MG TABLET PO PRN ×2 (03:50→23:50)
[2017-03-10] MEDS: BENZONATATE 100 MG CAPSULE PO PRN (04:21)
[2017-03-10 05:55] LABS: BASOPHILS # (AUTO) 0.02 10*3/UL; BASOPHILS % (AUTO) 0.2 % (0-1); EOSINOPHILS # (AUTO) 0.14 10*3/UL; EOSINOPHILS % (AUTO) 1.5 % (0-8); HEMATOCRIT 28.5 % (42.0-52.0); HEMOGLOBIN 9.3 g/dL (14.0-18.0); LYMPHOCYTES # (AUTO) 1.19 10*3/uL; MEAN CORPUSCULAR HEMOGLOBIN 27.8 PG (27-31); MEAN CORPUSCULAR HGB CONC 32.6 g/dL (33-37); MEAN CORPUSCULAR VOLUME 85.1 FL (80-90); MEAN PLATELET VOLUME 9.9 FL (7.4-12.2); MONOCYTES # (AUTO) 0.89 10*3/UL (0.3-0.8); MONOCYTES % (AUTO) 9.7 % (5-15); NEUTROPHILS # (AUTO) 6.96 10*3/UL; NEUTROPHILS % (AUTO) 75.5 % (50-80); RED BLOOD COUNT 3.35 10^6/uL (4.70-6.10)
[2017-03-10 05:56] LABS: PLATELET MORPHOLOGY COMMENT NORMAL MORPHOLOGY (NORM); RBC MORPHOLOGY COMMENT NORMAL MORPHOLOGY (NORM); WBC MORPHOLOGY COMMENT NORMAL MORPHOLOGY (NORM)
[2017-03-10 05:58] LABS: CALCIUM 8.8 mg/dL (8.7-10.7); SERUM ALBUMIN 2.9 g/dL (3.5-4.8)
[2017-03-10] MEDS: ACIDOPHILUS/BULGARICUS 1 EACH GRAN.PACK PO SCH (08:08)
[2017-03-10] MEDS: Levofloxacin 750mg (Premix) 750 MG in Dextrose 1 BAG IV SCH (08:09)
[2017-03-10] MEDS: Sotalol Tab 80 MG TAB PO SCH ×2 (08:09→20:26)
[2017-03-10] MEDS: MAGNESIUM OXIDE 400 MG TABLET PO SCH (08:10)
[2017-03-10] MEDS: FENOFIBRATE 145 MG TABLET PO SCH (08:10)
[2017-03-10] MEDS: NORMAL SALINE 10 ML SYRINGE FLUSH IVP PRN (08:10)
[2017-03-10] MEDS: ASPIRIN 81 MG (BABY) CHEWABLE TABLET PO SCH (08:10)
[2017-03-10] MEDS: Multivitamin Tab 1 TAB PO SCH (08:10)
[2017-03-10] MEDS ORDERED: IRON CARBONYL 45 MG PO SCH (09:00)
[2017-03-10] MEDS: Apixaban 5 MG TABLET PO SCH ×2 (09:10→20:26)
--- NOTE | 2017-03-10 12:04 | PDOC(PROG) ---
Interval History: Patient is doing well has no complaints. He does claim chowder because he said he had too much garlic. No chest pain nausea or vomiting Objective : Data - Labs CBC and BMP: 03/10/17 04:45 03/10/17 04:45 Labs - Last 24 Hours: Laboratory Results 03/08/17 03/10/17 Range/Units 08:05 04:45 WBC 9.22 (4.8-10.8) 10^3/uL RBC 3.35 L (4.70-6.10) 10^6/uL Hgb 9.3 L (14.0-18.0) g/dL Hct 28.5 L (42.0-52.0) % MCV 85.1 (80-90) FL MCH 27.8 (27-31) PG MCHC 32.6 L (33-37) g/dL RDW Std Deviation 54.4 H (39-50) fL RDW Coeff of Jeanmarie 18.0 H (11.5-14.5) % Plt Count 543 H (140-350) 10*3/uL MPV 9.9 (7.4-12.2) FL Immature Gran % (Auto) 0.2 (0-5) % Neut % (Auto) 75.5 (50-80) % Lymph % (Auto) 12.9 (10-50) % [place] % (Auto) 9.7 (5-15) % Eos % (Auto) 1.5 (0-8) % Baso % (Auto) 0.2 (0-1) % Immature Gran # (Auto) 0.02 10*3/UL Neut # (Auto) 6.96 10*3/UL Lymph # (Auto) 1.19 10*3/uL [place] # (Auto) 0.89 H (0.3-0.8) 10*3/UL Eos # (Auto) 0.14 10*3/UL Baso # (Auto) 0.02 10*3/UL WBC Morphology Comment Normal morphology (NORM) Plt Morphology Comment Normal morphology (NORM) RBC Morph Comment Normal morphology (NORM) Sodium 134 L (135-145) meq/L Potassium 4.0 (3.8-5.2) meq/L Chloride 106 (98-112) meq/L Carbon Dioxide 18 L (23-33) meq/L Anion Gap 10 (5-20) BUN 11 (7-22) mg/dL Creatinine 1.0 (0.70-1.50) mg/dL Estimated GFR (>60 ml/min/1.73m(2)) BUN/Creatinine Ratio 11.00 (6-20) Glucose 79 (78-110) mg/dL Calculated Osmolality 275.0 (267-292) mOsm/kg Calcium 8.8 (8.7-10.7) mg/dL Total Bilirubin 0.5 (0.3-1.2) mg/dL AST 121 H (21-57) IU/L ALT 41 (21-72) IU/L Alkaline Phosphatase 57 (38-126) IU/L Total Protein 5.8 L (6.1-8.0) g/dL Albumin 2.9 L (3.5-4.8) g/dL Globulin 2.9 (2.50-4.10) g/dL Albumin/Globulin Ratio 1.00 L (1.3-2.0) mg/g Cortisol AM Sample 14 (7-25) mcg/dL Objective : Exam - General General Appearance: Cooperative - Neck Neck Exam: Normal Inspection - Respiratory Respiratory Exam: Clear to Auscultation - Bilaterally, Breathing Non Labored, Normal To Percussion - Cardiovascular Cardiovascular Exam: RRR, No Murmur, No Clicks - GI/Abdominal GI/Abdominal Exam: Normal Bowel Sounds, Non Tender, Non Distended, Soft - Extremities Extremities Exam: No Clubbing Present, No Edema Present - Neurological Neurological Exam: Alert, Oriented x 3, CN II-XII Intact Assessment and Plan - Patient Problems (1) Urinary tract infectious disease Current Visit: Yes Status: Acute Comment: Patient is growing Pseudomonas 2 species sensitive to cefepime I discussed the case with Dr. Paiz infectious disease recommends 2 g of cefepime IV every 12 for a total 14 days I discussed this with the patient will be getting a PICC line on Sunday and try to arrange a infusions in [facility]. I've called [facility] Dr. Yohana Burns about patient's finding on CT scan waiting for call back (2) Sepsis associated hypotension Current Visit: Yes Status: Resolved (3) Hypotension Current Visit: Yes Status: Resolved Photo / Body Diagrams - Uploaded Photos Uploaded Photos:
[2017-03-10] MEDS: Cefepime Inj 2 GM in Sodium Chloride 0.9% 100 ML IV SCH (20:20)
[2017-03-10] MEDS: ATORVASTATIN 20 MG TABLET PO SCH (20:26)
[2017-03-10] MEDS: Zolpidem Tab 5 MG TAB PO PRN (20:28)
[2017-03-11] MEDS: NORMAL SALINE 10 ML SYRINGE FLUSH IVP PRN ×2 (07:29→19:22)
[2017-03-11] MEDS: Cefepime Inj 2 GM in Sodium Chloride 0.9% 100 ML IV SCH ×2 (07:29→19:22)
[2017-03-11] MEDS: Sotalol Tab 80 MG TAB PO SCH ×2 (08:10→20:57)
[2017-03-11] MEDS: MAGNESIUM OXIDE 400 MG TABLET PO SCH (08:11)
[2017-03-11] MEDS: ACIDOPHILUS/BULGARICUS 1 EACH GRAN.PACK PO SCH (08:11)
[2017-03-11] MEDS: Apixaban 5 MG TABLET PO SCH ×2 (08:11→20:58)
[2017-03-11] MEDS: ASPIRIN 81 MG (BABY) CHEWABLE TABLET PO SCH (08:11)
[2017-03-11] MEDS: FENOFIBRATE 145 MG TABLET PO SCH (08:11)
[2017-03-11] MEDS: Multivitamin Tab 1 TAB PO SCH (08:12)
[2017-03-11] MEDS: AmLODIPine Tab 5 MG TABLET PO SCH (10:02)
--- NOTE | 2017-03-11 12:21 | PDOC(PROG) ---
Interval History: Patient states he is doing great today he tolerated his food without nausea or vomiting he also states that finally he's had some food without experiencing any of the feeling C he has been since his surgery. He is totally back to his normal self he also states he has a couple of canker sores but is been using an ointment which helps him we discussed given him the acyclovir but this can cause nausea so he opted for the ointment and he also states they are not as bad Objective : Data - Labs CBC and BMP: 03/10/17 04:45 03/10/17 04:45 Objective : Exam - General General Appearance: Cooperative - Head Head Exam: Normal Inspection - Respiratory Respiratory Exam: Clear to Auscultation - Bilaterally, Breathing Non Labored, Normal To Percussion, Normal to Percussion and Palpation - Cardiovascular Cardiovascular Exam: RRR, No Murmur, No Clicks - GI/Abdominal GI/Abdominal Exam: Normal Bowel Sounds, Non Tender, Non Distended Assessment and Plan - Patient Problems (1) Urinary tract infectious disease Current Visit: Yes Status: Acute Comment: Improved growing Pseudomonas 2 species discussed with infectious disease continue cefepime we'll total 14 days IV we'll order PICC line for tomorrow I also discussed the case with urology at [facility] in regards to his mild hydroureter no need to do anything at present time since the patient improved they will get him an appointment with the surgeon that did the surgery for follow-up (2) Sepsis associated hypotension Current Visit: Yes Status: Resolved Comment: Resolved (3) Hypotension Current Visit: Yes Status: Resolved Comment: Resolved Photo / Body Diagrams - Uploaded Photos Uploaded Photos:
[2017-03-11] MEDS ORDERED: LIDOCAINE 2% 20 MG/ML - 20 ML VIAL SUBCUT PRN (12:26)
[2017-03-11] MEDS ORDERED: Lidocaine 1% 10 MG/ML - 20 ML VIAL SUBCUT PRN (12:26)
[2017-03-11] MEDS ORDERED: NORMAL SALINE 10 ML SYRINGE FLUSH IV PRN (12:26)
[2017-03-11] MEDS ORDERED: HEPARIN 500 UNIT/5 ML SYRINGE FOR CENTRAL LINE IVP PRN (12:26)
[2017-03-11] MEDS: Zolpidem Tab 5 MG TAB PO PRN (20:57)
[2017-03-11] MEDS: ACETAMINOPHEN 325 MG TABLET PO PRN (20:57)
[2017-03-11] MEDS: PANTOPRAZOLE 40 MG TABLET PO SCH (20:58)
[2017-03-11] MEDS: ATORVASTATIN 20 MG TABLET PO SCH (20:58)
--- NOTE | 2017-03-12 06:06 | DCSUMMARY ---
Hospitalization Summary Hospital Course: Final Discharge Diagnosis: Current Visit Problems Problem Status Priority Diagnosed Code A-fib Acute I48.91 Abdominal pain Acute R10.9 Abnormal nuclear stress test Acute Aortic valve disease Acute I35.9 GERD (gastroesophageal reflux disease) Acute K21.9 Hypercholesterolemia Acute E78.0 Hypertension Acute I10 Nausea & vomiting Acute R11.2 Pre-syncope Acute R55 S/P right knee arthroscopy Acute Z98.89 Urinary tract infectious disease Acute N39.0 Hypotension Resolved I95.9 Sepsis associated hypotension Resolved A41.9 Diagnostic Data, Laboratory Data, and Procedures of Signifigance: Laboratory Results 03/07/17 03/07/17 03/07/17 Range/Units 18:00 18:09 18:15 WBC 8.92 (4.8-10.8) 10^3/uL RBC 3.87 L (4.70-6.10) 10^6/uL Hgb 10.9 L (14.0-18.0) g/dL Hct 33.2 L (42.0-52.0) % MCV 85.8 (80-90) FL MCH 28.2 (27-31) PG MCHC 32.8 L (33-37) g/dL RDW Std Deviation 53.3 H (39-50) fL RDW Coeff of Jeanmarie 17.3 H (11.5-14.5) % Plt Count 534 H (140-350) 10*3/uL MPV 9.0 (7.4-12.2) FL Immature Gran % (Auto) 0.4 (0-5) % Neut % (Auto) 76.9 (50-80) % Lymph % (Auto) 12.7 (10-50) % [place] % (Auto) 8.9 (5-15) % Eos % (Auto) 0.9 (0-8) % Baso % (Auto) 0.2 (0-1) % Immature Gran # (Auto) 0.04 10*3/UL Neut # (Auto) 6.86 10*3/UL Lymph # (Auto) 1.13 10*3/uL [place] # (Auto) 0.79 (0.3-0.8) 10*3/UL Eos # (Auto) 0.08 10*3/UL Baso # (Auto) 0.02 10*3/UL WBC Morphology Comment Normal morphology (NORM) Plt Morphology Comment Normal morphology (NORM) RBC Morph Comment Normal morphology (NORM) VBG pH 7.53 H (7.32-7.42) VBG pCO2 25 L (45-55) mmHg VBG HCO3 21 L (22-26) mmol/L VBG Base Excess -2 (-2-2) MMOL/L Sodium 129 L (135-145) meq/L Potassium 4.5 (3.8-5.2) meq/L Chloride 98 (98-112) meq/L Carbon Dioxide 20 L (23-33) meq/L Anion Gap 11 (5-20) BUN 22 (7-22) mg/dL Creatinine 1.2 (0.70-1.50) mg/dL Estimated GFR (>60 ml/min/1.73m(2)) BUN/Creatinine Ratio 18.33 (6-20) Glucose 103 (78-110) mg/dL Calculated Osmolality 270.0 (267-292) mOsm/kg Lactic Acid 1.1 (0.70-2.10) MMOL/L Calcium 8.9 (8.7-10.7) mg/dL Magnesium 1.7 (1.6-2.4) mg/dL Total Bilirubin 0.5 (0.3-1.2) mg/dL AST 39 (21-57) IU/L ALT 31 (21-72) IU/L Alkaline Phosphatase 43 (38-126) IU/L C-Reactive Protein 4.5 H (0.0-0.9) mg/dL Total Protein 6.7 (6.1-8.0) g/dL Albumin 3.4 L (3.5-4.8) g/dL Globulin 3.3 (2.50-4.10) g/dL Albumin/Globulin Ratio 1.00 L (1.3-2.0) mg/g PSA Screen (0.006-4.00) ng/ml Cortisol AM Sample (7-25) mcg/dL Ur Collection Type Clean catch urine Urine Color Yellow Urine Clarity Cloudy (CLEAR) Urine pH >=9.0 (5.0-8.5) Ur Specific [place] 1.010 (1.005-1.030) Urine Protein 100 (NEG) mg/dl Urine Glucose (UA) Negative (NEG) mg/dL Urine Ketones Negative (NEG) Urine Occult Blood Large H (NEG) Urine Nitrate Negative (NEG) Urine Bilirubin Negative (NEG) Urine Urobilinogen 0.2 (0.2) EU/dL Ur Leukocyte Esterase Moderate (NEG) Urine RBC 8-10 (NONE) /hpf Urine WBC 8-10 (NONE) Ur Squamous Epith Cells Rare (NONE) Ur Renal Epithelial Cell None (NONE) Urine Crystals Moderate Urine Bacteria Moderate (NONE) Urine Casts None (NONE) Urine Mucus Rare (NONE) Urine Trichomonas None (NONE) Urine Yeast None (NONE) Ur Culture Indicated? Culture set 03/08/17 03/08/17 03/08/17 Range/Units 04:16 06:26 08:05 WBC 11.09 H (4.8-10.8) 10^3/uL RBC 3.67 L (4.70-6.10) 10^6/uL Hgb 10.2 L (14.0-18.0) g/dL Hct 31.6 L (42.0-52.0) % MCV 86.1 (80-90) FL MCH 27.8 (27-31) PG MCHC 32.3 L (33-37) g/dL RDW Std Deviation 54.7 H (39-50) fL RDW Coeff of Jeanmarie 17.7 H (11.5-14.5) % Plt Count 439 H (140-350) 10*3/uL MPV 9.6 (7.4-12.2) FL Immature Gran % (Auto) 0.3 (0-5) % Neut % (Auto) 84.4 H (50-80) % Lymph % (Auto) 7.3 L (10-50) % [place] % (Auto) 7.5 (5-15) % Eos % (Auto) 0.3 (0-8) % Baso % (Auto) 0.2 (0-1) % Immature Gran # (Auto) 0.03 10*3/UL Neut # (Auto) 9.37 10*3/UL Lymph # (Auto) 0.81 10*3/uL [place] # (Auto) 0.83 H (0.3-0.8) 10*3/UL Eos # (Auto) 0.03 10*3/UL Baso # (Auto) 0.02 10*3/UL WBC Morphology Comment Normal morphology (NORM) Plt Morphology Comment Normal morphology (NORM) RBC Morph Comment Normal morphology (NORM) VBG pH (7.32-7.42) VBG pCO2 (45-55) mmHg VBG HCO3 (22-26) mmol/L VBG Base Excess (-2-2) MMOL/L Sodium 136 (135-145) meq/L Potassium 4.4 (3.8-5.2) meq/L Chloride 105 (98-112) meq/L Carbon Dioxide 21 L (23-33) meq/L Anion Gap 10 (5-20) BUN 23 H (7-22) mg/dL Creatinine 1.7 H (0.70-1.50) mg/dL Estimated GFR Grade Recorder (>60 ml/min/1.73m(2)) BUN/Creatinine Ratio 13.52 (6-20) Glucose 148 H (78-110) mg/dL Calculated Osmolality 288.0 (267-292) mOsm/kg Lactic Acid 0.8 (0.70-2.10) MMOL/L Calcium 8.8 (8.7-10.7) mg/dL Magnesium (1.6-2.4) mg/dL Total Bilirubin (0.3-1.2) mg/dL AST (21-57) IU/L ALT (21-72) IU/L Alkaline Phosphatase (38-126) IU/L C-Reactive Protein (0.0-0.9) mg/dL Total Protein (6.1-8.0) g/dL Albumin (3.5-4.8) g/dL Globulin (2.50-4.10) g/dL Albumin/Globulin Ratio (1.3-2.0) mg/g PSA Screen < 0.064 (0.006-4.00) ng/ml Cortisol AM Sample 14 (7-25) mcg/dL Ur Collection Type Urine Color Urine Clarity (CLEAR) Urine pH (5.0-8.5) Ur Specific [place] (1.005-1.030) Urine Protein (NEG) mg/dl Urine Glucose (UA) (NEG) mg/dL Urine Ketones (NEG) Urine Occult Blood (NEG) Urine Nitrate (NEG) Urine Bilirubin (NEG) Urine Urobilinogen (0.2) EU/dL Ur Leukocyte Esterase (NEG) Urine RBC (NONE) /hpf Urine WBC (NONE) Ur Squamous Epith Cells (NONE) Ur Renal Epithelial Cell (NONE) Urine Crystals Urine Bacteria (NONE) Urine Casts (NONE) Urine Mucus (NONE) Urine Trichomonas (NONE) Urine Yeast (NONE) Ur Culture Indicated? 03/09/17 03/10/17 Range/Units 07:13 04:45 WBC 7.71 9.22 (4.8-10.8) 10^3/uL RBC 2.87 L 3.35 L (4.70-6.10) 10^6/uL Hgb 8.1 L 9.3 L (14.0-18.0) g/dL Hct 25.1 L 28.5 L (42.0-52.0) % MCV 87.5 85.1 (80-90) FL MCH 28.2 27.8 (27-31) PG MCHC 32.3 L 32.6 L (33-37) g/dL RDW Std Deviation 55.9 H 54.4 H (39-50) fL RDW Coeff of Jeanmarie 18.0 H 18.0 H (11.5-14.5) % Plt Count 483 H 543 H (140-350) 10*3/uL MPV 9.2 9.9 (7.4-12.2) FL Immature Gran % (Auto) 0.3 0.2 (0-5) % Neut % (Auto) 71.7 75.5 (50-80) % Lymph % (Auto) 15.6 12.9 (10-50) % [place] % (Auto) 10.4 9.7 (5-15) % Eos % (Auto) 1.9 1.5 (0-8) % Baso % (Auto) 0.1 0.2 (0-1) % Immature Gran # (Auto) 0.02 0.02 10*3/UL Neut # (Auto) 5.53 6.96 10*3/UL Lymph # (Auto) 1.20 1.19 10*3/uL [place] # (Auto) 0.80 0.89 H (0.3-0.8) 10*3/UL Eos # (Auto) 0.15 0.14 10*3/UL Baso # (Auto) 0.01 0.02 10*3/UL WBC Morphology Comment Normal morphology Normal morphology (NORM) Plt Morphology Comment Normal morphology Normal morphology (NORM) RBC Morph Comment Normal morphology Normal morphology (NORM) VBG pH (7.32-7.42) VBG pCO2 (45-55) mmHg VBG HCO3 (22-26) mmol/L VBG Base Excess (-2-2) MMOL/L Sodium 138 134 L (135-145) meq/L Potassium 4.4 4.0 (3.8-5.2) meq/L Chloride 113 H 106 (98-112) meq/L Carbon Dioxide 18 L 18 L (23-33) meq/L Anion Gap 7 10 (5-20) BUN 19 11 (7-22) mg/dL Creatinine 1.1 1.0 (0.70-1.50) mg/dL Estimated GFR (>60 ml/min/1.73m(2)) BUN/Creatinine Ratio 17.27 11.00 (6-20) Glucose 83 79 (78-110) mg/dL Calculated Osmolality 286.0 275.0 (267-292) mOsm/kg Lactic Acid (0.70-2.10) MMOL/L Calcium 8.7 8.8 (8.7-10.7) mg/dL Magnesium (1.6-2.4) mg/dL Total Bilirubin 0.4 0.5 (0.3-1.2) mg/dL AST 37 121 H (21-57) IU/L ALT 35 41 (21-72) IU/L Alkaline Phosphatase 28 L 57 (38-126) IU/L C-Reactive Protein (0.0-0.9) mg/dL Total Protein 5.0 L 5.8 L (6.1-8.0) g/dL Albumin 2.5 L 2.9 L (3.5-4.8) g/dL Globulin 2.5 2.9 (2.50-4.10) g/dL Albumin/Globulin Ratio 1.00 L 1.00 L (1.3-2.0) mg/g PSA Screen (0.006-4.00) ng/ml Cortisol AM Sample (7-25) mcg/dL Ur Collection Type Urine Color Urine Clarity (CLEAR) Urine pH (5.0-8.5) Ur Specific [place] (1.005-1.030) Urine Protein (NEG) mg/dl Urine Glucose (UA) (NEG) mg/dL Urine Ketones (NEG) Urine Occult Blood (NEG) Urine Nitrate (NEG) Urine Bilirubin (NEG) Urine Urobilinogen (0.2) EU/dL Ur Leukocyte Esterase (NEG) Urine RBC (NONE) /hpf Urine WBC (NONE) Ur Squamous Epith Cells (NONE) Ur Renal Epithelial Cell (NONE) Urine Crystals Urine Bacteria (NONE) Urine Casts (NONE) Urine Mucus (NONE) Urine Trichomonas (NONE) Urine Yeast (NONE) Ur Culture Indicated? Microbiology 03/07/17 18:00 Urine,Clean Catch Urine Culture - Final Pseudomonas Aeruginosa Pseudomonas Aeruginosa#2 03/07/17 18:20 Blood Blood Culture - Preliminary NO GROWTH AFTER 48 HOURS 03/07/17 18:15 Blood Blood Culture - Preliminary NO GROWTH AFTER 48 HOURS History and Physical pertinent to Admission: History and Physical Past Medical History Medical History: 1. Hypertension. 2. Hypercholesterolemia. 3. Prostate cancer with previous prostate surgery. 4. Paroxysmal A. fib. 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 Surgical History: 1. Prostate surgery. 2. Previous back surgery. 3. Cholecystectomy. 4. Status post cystectomy and ileal conduit formation November 2016 Family History: Reviewed an Not Pertinent Past Social History: Doesn't smoke doesn't drink known drugs. Tobacco Use: Never Smoker [place] Course of Hospitalization: Is a very nice 76-year-old gentleman with a past medical history significant for hypertension, and history of prostate cancer status post prostatectomy in 2007, history of paroxysmal A. fib and also history of radiation cystitis for which she had a cystectomy and ileal conduit in November [address] [facility]. Patient has not felt well since his surgery with nausea and vomiting he had a fever of 103.2 with chills and in the ER blood cultures urine cultures and CT of the abdomen were done. During his hospital course he was treated with IV antibiotics his urine cultures grew out Pseudomonas. There was some mild hydroureter on the left I discussed this case with the surgeon in the [facility] Dr. Terrazas which said that was nothing to worry about the illness findings the patient has improved he will have a follow-up with his colleague they'll contact him. Crusted case with infectious disease in [place] which recommended the total 14 days of cefepime 2 g twice a day. The patient has tolerated his food is nausea and vomiting has disappeared ice pack to his normal self. Even from before surgery likely is nausea and vomiting secondary to long-standing UTI for follow her Dr. Freitas as an outpatient for possible colonoscopy. We will arrange IV infusion at [place] since this patient lives in [facility]. Patient feels great today he said the food tastes great again and is very happy on how he feels On the date of discharge, the patient was examined: Gen.: No acute distress, alert, nontoxic Heart: Regular rate and rhythm, no murmurs, clicks, gallops, or rubs Lungs: Clear to auscultation bilaterally, breathing is nonlabored Abdomen/GI: Normal tones on auscultation, soft, nontender, nondistended Musculoskeletal/extremities: No clubbing, cyanosis, or edema Vitals reviewed and are listed below Vital Signs (24 hrs) Temp Pulse Pulse Resp BP BP Pulse Ox 03/12/17 06:52 97.3 F 73 17 138/79 95 03/12/17 04:37 98.4 F 70 12 149/78 96 03/12/17 00:29 97.8 F 74 24 101/51 93 03/11/17 20:03 98.1 F 84 20 150/89 97 03/11/17 19:00 85 20 03/11/17 17:00 98.3 F 69 16 158/84 94 03/11/17 11:02 97.2 F 74 17 152/76 98 03/11/17 07:48 18 Assessment and Plan: 1. As per discharge assessments above 2. Disposition: Follow-up with Dr. candice Pena and primary care physician charge home 3. Condition on discharge, stable and improved. 4. Diet: regular diet 5. Activities: resume normal activities 6. Follow-Up: 1. PCP 2. 7. Medications at the Time of Discharge: Home Medications Medication Instructions Recorded Confirmed Type Aspirin 1 tab PO DAILY tab 06/01/14 03/07/17 History Fenofibrate Nanocrystallized 1 tab PO DAILY tab 06/01/14 03/07/17 History [Fenofibrate] Multivitamin [Multivitamins] 1 tab PO DAILY 01/25/16 03/07/17 History Lactobacillus Combination No.4 1 each PO DAILY cap 02/07/16 03/07/17 History [Probiotic] Atorvastatin Calcium 1 tab PO DAILY tab 12/21/16 03/07/17 History Dexlansoprazole [Dexilant] 60 mg PO DAILY #90 cap 02/20/17 03/07/17 Clinic Apixaban [Eliquis] 5 mg PO BID #60 tab 02/23/17 03/07/17 Clinic Iron,Carbonyl [Iron] 45 mg PO DAILY 03/07/17 03/07/17 History Magnesium Oxide [Magnesium] 400 mg PO DAILY 03/07/17 03/07/17 History Melatonin 25 mg PO BEDTIME 03/07/17 03/07/17 History Sotalol HCl [Sotalol] 40 mg PO BID 03/07/17 03/07/17 History Amlodipine Besylate [Norvasc] 5 mg PO DAILY #30 tab 03/12/17 Rx Cefepime Inj [Maxipime Inj] 2 gm IV Q12H 10 Days 03/12/17 Rx 8. Time, care, counseling and coordination of care for this discharge is greater than 30 minutes. Exam - Vitals Vital Signs: Vital Signs Temperature 98.4 F Temperature Source Oral Pulse Rate [Apical] 85 Pulse Rate [Telemetry] 68 Pulse Rate [Pulse Oximeter 70 Right] Pulse Rate 66 Respiratory Rate 12 Blood Pressure [Right Arm] 101/51 Blood Pressure [Left Arm] 149/78 Pulse Ox 96 Oxygen Delivery Method Room Air Height 6 ft 2 in Weight 85.457 kg Patient Problems - Patient Problem List (1) Urinary tract infectious disease Current Visit: Yes Status: Acute (2) Sepsis associated hypotension Current Visit: Yes Status: Resolved (3) Hypotension Current Visit: Yes Status: Resolved
[2017-03-12 06:53] VITALS: TEMP 97.3
[2017-03-12] MEDS: PANTOPRAZOLE 40 MG TABLET PO SCH (07:14)
[2017-03-12] MEDS: Cefepime Inj 2 GM in Sodium Chloride 0.9% 100 ML IV SCH (07:14)
[2017-03-12] MEDS: Apixaban 5 MG TABLET PO SCH (09:06)
[2017-03-12] MEDS: ACETAMINOPHEN 325 MG TABLET PO PRN (09:06)
[2017-03-12] MEDS: ASPIRIN 81 MG (BABY) CHEWABLE TABLET PO SCH (09:06)
[2017-03-12] MEDS: Multivitamin Tab 1 TAB PO SCH (09:07)
[2017-03-12] MEDS: ACIDOPHILUS/BULGARICUS 1 EACH GRAN.PACK PO SCH (09:07)
[2017-03-12] MEDS: MAGNESIUM OXIDE 400 MG TABLET PO SCH (09:07)
[2017-03-12] MEDS: Sotalol Tab 80 MG TAB PO SCH (09:08)
[2017-03-12] MEDS: AmLODIPine Tab 5 MG TABLET PO SCH (09:08)
[2017-03-12] MEDS: FENOFIBRATE 145 MG TABLET PO SCH (09:14)
[2017-03-12 10:06] VITALS: RESP 20
--- NOTE | 2017-03-12 11:56 | DI ---
ULTRASOUND GUIDED VENOUS ACCESS, 03/12/2017 10:30 AM Clinical History: Urinary tract infection with sepsis. The patient will require long-term IV antibiot ic therapy. Previous Exam: None at this facility. 2D ultrasound was used to identify the left basilic vein for venous access to place a PICC line. The puncture site was prepped with ChloraPrep with Tint and draped in the usual sterile fashion. This vei n was successfully cannulated using realtime ultrasound guidance. The introducer sheath was advanced and positioned without difficulty. Reading: Successful and uncomplicated cannulation of the left basilic vein.
--- NOTE | 2017-03-12 12:02 | DI ---
AP CHEST X-RAY, 03/12/2017 10:30 AM : Clinical History: Urinary tract infection with sepsis. The patient will require long-term IV antibiot ic therapy. Previous Exam: None at this facility. There is no acute soft tissue or bony abnormality. Heart size is normal. Lungs are clear. Mediastinal structures are normal. The catheter position initially was directed into the right subclavian vein. The catheter was withdrawn and repositioned multiple times and it still made of an unusual curve and would not advance into the distal superior vena cava. Therefore, the catheter was withdrawn for its f inal position at the junction of the left brachiocephalic vein and the superior vena cava. Readin. Normal chest x-ray. 2. The 52 cm long PICC line catheter tip is located at the junction of the left brachiocephalic vein and the superior vena cava.
== END 2017-03-12 12:42 | disposition home or self-care (01) | DRG 689 ==
LOC: ER 17:50 → MED/SURG 20:49 → ICU 03-08 05:48 → MED/SURG 03-09 10:00
PROVIDERS: ADMIT Internal Medicine; ATTEND Internal Medicine
DX: N39.0 Urinary tract infection, site not specified (principal); R10.9 Unspecified abdominal pain; N13.30 Unspecified hydronephrosis; N13.4 Hydroureter; Z93.2 Ileostomy status; A41.9 Sepsis, unspecified organism; I95.9 Hypotension, unspecified; I48.91 Unspecified atrial fibrillation; I35.9 Nonrheumatic aortic valve disorder, unspecified; K21.9 Gastro-esophageal reflux disease without esophagitis; E78.00 Pure hypercholesterolemia, unspecified; I10 Essential (primary) hypertension
CPT/HCPCS: 36415; 36569; 71010; 74177; 76775; 76937; 80048; 80053; 81001; 81003; 82533; 82803; 83605; 83735; 85025; 86140; 87040; 87077; 87088; 87186; 93005; 93010; 94761; 96361; 96374; 96375; 99284; 99285; G0103; J0295; J0692; J0696; J1100; J1885; J2270; J2405; J3370; J7030; J7040; J7050; J7060

== ENCOUNTER → 2017-03-20 | Outpatient (CLI) | payer OTHER | LOC: MMPC 11:11 | PROVIDERS: ATTEND Surgery | DX: N15.9 Renal tubulo-interstitial disease, unspecified (principal) | CPT/HCPCS: 99212; G0463 ==

== ENCOUNTER → 2017-03-26 | Outpatient (CLI) | payer OTHER | LOC: MMPC 09:00 | PROVIDERS: ATTEND Family Medicine | DX: E83.42 Hypomagnesemia (principal) | CPT/HCPCS: 99213; G0463 ==

== ENCOUNTER 2017-04-17 14:08 | Inpatient (IN) | payer OTHER ==
[2017-04-17] MEDS ORDERED: NORMAL SALINE 10 ML SYRINGE FLUSH IVP PRN ×2 (14:25→21:07)
[2017-04-17] MEDS ORDERED: MORPHINE SULFATE 4 MG/1 ML IVP ONE (14:25)
[2017-04-17] MEDS ORDERED: ONDANSETRON 4 MG/2 ML VIAL IVP ONE (14:26)
--- NOTE | 2017-04-17 15:02 | PDOC ---
Abdomen/Flank HPI - General Chief Complaint: Abdomen Pain Stated Complaint: FEVER/VOMITING/ABDOMEN PAIN Date Seen by Provider: 04/17/17 Time Seen by Provider: 14:42 - History of Present Illness Initial Comments: Patient is a very nice 77-year-old gentleman presents to the emergency department with low abdominal discomfort. Apparently patient had bladder resection and prostate resection secondary to invasive prostate cancer and has had some trouble since then. Most recently he had a urinary tract infection that he was told not to his kidneys treated with antibiotics for that it has gotten better. Over the last day yesterday and then today however he did have some nausea some vomiting also some diarrhea but this morning is feeling a little better in regards to nausea and vomiting but is having substantial low abdominal cramping and pain. His pain is severe enough that it makes him feel like he doesn't want to eat anything at all if he is ambulating at all makes him double over. He does not have fever or chills. He denies hematemesis or hematochezia. He has not had any watery diarrhea and has had no diarrhea stools today after the diarrhea episodes he had yesterday. He has not had fever. - Patient Home Medications Home Medications: Home Medications Aspirin 1 tab PO DAILY tab 06/01/14 Multivitamin [Multivitamins] 1 tab PO DAILY 01/25/16 Lactobacillus Combination No.4 [Probiotic] 1 each PO DAILY cap 02/07/16 Atorvastatin Calcium 1 tab PO DAILY tab 12/21/16 Dexlansoprazole [Dexilant] 60 mg PO DAILY #90 cap 02/20/17 Apixaban [Eliquis] 5 mg PO BID #60 tab 02/23/17 Iron,Carbonyl [Iron] 45 mg PO DAILY 03/07/17 Magnesium Oxide [Magnesium] 400 mg PO DAILY 03/07/17 Melatonin 25 mg PO BEDTIME 03/07/17 Sotalol HCl [Sotalol] 40 mg PO BID 03/07/17 Amlodipine Besylate [Norvasc] 5 mg PO DAILY #30 tab 03/12/17 Fenofibrate Nanocrystallized [Fenofibrate] 145 mg PO DAILY #30 tab 03/20/17 Zolpidem Tartrate [Zolpidem Tartrate Er] 1 tab PO QHS PRN #90 tab 04/06/17 - Patient Allergies Allergies/Adverse Reactions: Allergies Allergy/AdvReac Type Severity Reaction Status Date / Time ferrous gluconate Allergy Intermediate ITCHING Verified 04/17/17 14:31 Past Medical History - heen HEENT History: Denies History, Hard of Hearing Additional HEENT History: READING GLASSES. HAD CATARACT REMOVED Cardiovascular History: Hypertension, Hyperlipidemia Respiratory History: Denies History Additional Respiratory History: SEASONAL ALLERGIES Gastrointestinal History: GERD Additional Genitourinary History: HAD PROSTATECTOMY MARCH 2015/ POST SX INCONTINECNE. HAD PROCEDURE DONE WHERE THEY PLACE A "SHUT OFF VALVE" IN [place]. HE MUST OPEN VALVE IN ORDER TO VOID Endocrine History: Denies History Musculoskeletal History: Arthritis, Back Pain Prosthesis or Implant: Yes (LOWER BACK) Neurological History: Migraines Additional Neurological History: LAST MONTH DEC Blood Disorders: Denies History Psychiatric History: Denies History History of Sexually Transmitted Diseases: No Cancer History: Other (please comment) Cancer Treatment / Date(s) of Treatment: SURGERY History of MDRO: No History of Other Communicable Diseases: No Alcohol Use: Rarely Substance Use Type: None Previous Surgical History: Yes Type / Date of Surgery: MARCH 2015 PROSTATECTOMY/ AUGUST 2015 "VALVE" IN [place] / LUMBAR FUSION/ KELI/ EGD/COLONOSCOPY. left hernia/foot surgery/gallbladder/ prosthesis removal/right knee scope Anesthesia Reactions: Yes (PONV/HAS SCOPE PATCH FROM DR LAN FOR SX) Malignant Hyperthermia: No Significant Family History: No pertinent family hx Past Medical History Reviewed: Reviewed - No Changes ROS - Limitations ROS Limitations: No Limitations Constitution: DENIES: Fever Cardiovascular: REPORTS: Denies Cardiac Symptoms Respiratory: REPORTS: Denies Resp Symptoms Neurological: REPORTS: Denies Neuro Symptoms Abdominal/Flank Pain PE - General Appearance General Appearance: POSITIVE: Alert, Cooperative - HEENT HEENT: POSITIVE: Head Inspection Nml, Eyes Inspection Nml - Neck Neck: POSITIVE: Normal Inspection - Respiratory Respiratory: POSITIVE: No Respiratory Distress, Breath Sounds Normal - Cardiovascular Cardiovascular: POSITIVE: Regular Rate and Rhythm, Heart Sounds Normal - Abdomen Additional Abdominal Details: Significant bilateral lower quadrant abdominal tenderness with guarding bilaterally with more so in the left abdomen than the right. Bowel sounds are present but sluggish - Back Back: NEGATIVE: CVA Tenderness (L) - Skin Skin: POSITIVE: Intact - Neurological Neurological: POSITIVE: Affect Apporpriate, Oriented X3 - Psychological Psychiatric: POSITIVE: Affect Appropriate, Mood Appropriate Abdomen Progress - Results Reviewed by me Xrays/CTs/US Reviewed by me: Yes Lab Results Reviewed: Yes Lab Results:: Laboratory Results 04/17/17 04/17/17 Range/Units 14:50 14:55 WBC 9.31 (4.8-10.8) 10^3/uL RBC 4.01 L (4.70-6.10) 10^6/uL Hgb 11.2 L (14.0-18.0) g/dL Hct 34.5 L (42.0-52.0) % MCV 86.0 (80-90) FL MCH 27.9 (27-31) PG MCHC 32.5 L (33-37) g/dL RDW Std Deviation 50.8 H (39-50) fL RDW Coeff of Jeanmarie 16.4 H (11.5-14.5) % Plt Count 385 H (140-350) 10*3/uL MPV 8.9 (7.4-12.2) FL Immature Gran % (Auto) 0.1 (0-5) % Neut % (Auto) 75.6 (50-80) % Lymph % (Auto) 13.4 (10-50) % [place] % (Auto) 10.6 (5-15) % Eos % (Auto) 0.2 (0-8) % Baso % (Auto) 0.1 (0-1) % Immature Gran # (Auto) 0.01 10*3/UL Neut # (Auto) 7.03 10*3/UL Lymph # (Auto) 1.25 10*3/uL [place] # (Auto) 0.99 H (0.3-0.8) 10*3/UL Eos # (Auto) 0.02 10*3/UL Baso # (Auto) 0.01 10*3/UL WBC Morphology Comment Normal morphology (NORM) Plt Morphology Comment Normal morphology (NORM) RBC Morph Comment Normal morphology (NORM) Sodium 133 L (135-145) meq/L Potassium 3.9 (3.8-5.2) meq/L Chloride 101 (98-112) meq/L Carbon Dioxide 22 L (23-33) meq/L Anion Gap 10 (5-20) BUN 18 (7-22) mg/dL Creatinine 1.4 (0.70-1.50) mg/dL Estimated GFR (>60 ml/min/1.73m(2)) BUN/Creatinine Ratio 12.85 (6-20) Glucose 113 H (78-110) mg/dL Calculated Osmolality 278.0 (267-292) mOsm/kg Lactic Acid 0.8 (0.70-2.10) MMOL/L Calcium 8.7 (8.7-10.7) mg/dL Total Bilirubin 0.4 (0.3-1.2) mg/dL AST 21 (21-57) IU/L ALT 23 (21-72) IU/L Alkaline Phosphatase 40 (38-126) IU/L Total Protein 6.4 (6.1-8.0) g/dL Albumin 3.5 (3.5-4.8) g/dL Globulin 2.9 (2.50-4.10) g/dL Albumin/Globulin Ratio 1.20 L (1.3-2.0) mg/g Ur Collection Type Clean catch urine Urine Color Yellow Urine Clarity Clear (CLEAR) Urine pH 6.0 (5.0-8.5) Ur Specific [place] 1.010 (1.005-1.030) Urine Protein 30 (NEG) mg/dl Urine Glucose (UA) Negative (NEG) mg/dL Urine Ketones Negative (NEG) Urine Occult Blood Moderate H (NEG) Urine Nitrate Positive H (NEG) Urine Bilirubin Negative (NEG) Urine Urobilinogen 0.2 (0.2) EU/dL Ur Leukocyte Esterase Large (NEG) Urine RBC 10-15 (NONE) /hpf Urine WBC >100 (NONE) Ur Squamous Epith Cells None (NONE) Ur Renal Epithelial Cell None (NONE) Urine Crystals None Urine Bacteria Few (NONE) Urine Casts None (NONE) Urine Mucus None (NONE) Urine Trichomonas None (NONE) Urine Yeast None (NONE) Ur Culture Indicated? Culture set - Patient's Progress MDM / ED Course: Patient was monitored in the emergency department he had IV fluids and initial workup which showed a urinary tract infection but he continued to have substantial low abdominal pain. Despite his normal white blood cell count I felt obligated to get a CT of his abdomen is much tenderness as he did have in his low abdomen. CT scan of the abdomen and pelvis did not reveal a whole lot. I was given a one-time IV dose Levaquin let him go home and take some oral Levaquin however he started to spike substantial fevers and had rigors and was feeling very poorly. We tried to treat him with some Tylenol and that didn't really break his fever and he actually started to feel more poorly. Therefore I feel that it would be unsafe to discharge him here today. He's had a rapid decompensation in the past with a urinary tract infection where he had to be transferred to the ICU and given that he is now spiking fevers and feeling poorly despite antibiotic administration and Tylenol and some IV fluids I feel that he is better served to be admitted to the hospital despite his white blood cell count being normal. I discussed his case with the hospitalist who agrees to admit the patient. Patient Care Time - Estimated PCT Patient Care Time (In Minutes): 40 Vital Signs - Recent Vital Signs Vital Signs: Vital Signs (Last 8 hours) Temp Pulse Resp BP Pulse Ox 04/17/17 19:10 103.2 F H 04/17/17 18:11 100.2 F H 04/17/17 17:10 103 F H 04/17/17 14:15 97.2 F 73 16 136/78 96 - VS Reviewed Vital Signs Reviewed: Yes (all reviewed) Discharge Clinical Impression: Abdominal pain UTI (urinary tract infection) Qualifiers: Urinary tract infection type: acute cystitis Hematuria presence: with hematuria Qualifier Code: (N30.01) Acute cystitis with hematuria Discharge Disposition: Admit to Observation Condition: Stable Follow Up With: AROLDO IQBAL [Primary Care Provider] -
[2017-04-17 15:05] LABS: BASOPHILS # (AUTO) 0.01 10*3/UL; BASOPHILS % (AUTO) 0.1 % (0-1); EOSINOPHILS # (AUTO) 0.02 10*3/UL; EOSINOPHILS % (AUTO) 0.2 % (0-8); HEMATOCRIT 34.5 % (42.0-52.0); HEMOGLOBIN 11.2 g/dL (14.0-18.0); LYMPHOCYTES # (AUTO) 1.25 10*3/uL; MEAN CORPUSCULAR HEMOGLOBIN 27.9 PG (27-31); MEAN CORPUSCULAR HGB CONC 32.5 g/dL (33-37); MEAN PLATELET VOLUME 8.9 FL (7.4-12.2); MONOCYTES # (AUTO) 0.99 10*3/UL (0.3-0.8); MONOCYTES % (AUTO) 10.6 % (5-15); NEUTROPHILS # (AUTO) 7.03 10*3/UL; NEUTROPHILS % (AUTO) 75.6 % (50-80); RED BLOOD COUNT 4.01 10^6/uL (4.70-6.10)
[2017-04-17] MEDS: Sodium Chloride 0.9% 1,000 ML PRIMARY IV ONE ×2 (15:06→17:20)
[2017-04-17 15:07] LABS: PLATELET MORPHOLOGY COMMENT NORMAL MORPHOLOGY (NORM); RBC MORPHOLOGY COMMENT NORMAL MORPHOLOGY (NORM); WBC MORPHOLOGY COMMENT NORMAL MORPHOLOGY (NORM)
[2017-04-17 15:14] LABS: BILIRUBIN,URINE NEGATIVE (NEG); CLARITY,URINE CLEAR (CLEAR); COLOR,URINE YELLOW; GLUCOSE, URINE (UA) NEGATIVE (NEG); NITRATE,URINE POSITIVE (NEG); OCCULT BLOOD,URINE MODERATE (NEG); PROTEIN,URINE 30 mg/dl (NEG); URINE SAMPLE TYPE CLEAN CATCH URINE; UROBILINOGEN,URINE 0.2 EU/dL (0.2)
[2017-04-17 15:15] LABS: BACTERIA,URINE FEW; WBC,URINE >100
[2017-04-17 15:20] LABS: BUN/CREATININE RATIO 12.85 (6-20); CALCIUM 8.7 mg/dL (8.7-10.7); SERUM ALBUMIN 3.5 g/dL (3.5-4.8)
[2017-04-17] MEDS ORDERED: Levofloxacin 500mg (Premix) 500 MG in Dextrose 1 BAG IV ONE (17:25)
[2017-04-17] MEDS ORDERED: Ertapenem Inj 1 GM in Sodium Chloride 0.9% 100 ML IV SCH (17:30)
--- NOTE | 2017-04-17 17:37 | DI ---
HISTORY: Abdominal pain. COMPARISON: Chest x-ray 03/08/2017. FINDINGS: Examination reveals the bowel gas pattern to be unremarkable with no definite evidence of bowel obstruction and no free air in the peritoneal cavity. No abnormal calcifications are noted. The heart is within normal limits with slight tortuosity of the dorsal aorta. Compared to the previou s examination of 03/08/17, the lung cartwright are essentially clear. IMPRESSION: 1. No acute bowel obstruction identified. Clinical correlation is requested. 2. No acute cardiopulmonary pathology identified.
[2017-04-17] MEDS ORDERED: ACETAMINOPHEN 500 MG TABLET PO ONE (18:02)
[2017-04-17] MEDS ORDERED: LEVOFLOXACIN 500 MG IV ONE (18:04)
--- NOTE | 2017-04-17 18:26 | DI ---
HISTORY: Low abdominal pain TECHNIQUE: CT images are obtained through the abdomen and pelvis with IV contrast. FINDINGS: The lung bases are clear. The liver, spleen, pancreas, adrenals and kidneys are unremarkable. There is an ileostomy. there is what appears to be an ileal conduit in the left anterior abdomen. post surgical changes consistent with a cystectomy. Multiple colonic diverticula. There is prominence of the ureters and the renal pelves bilaterally in line with a patient with an il eal conduit. There is some post surgical scarring. There is also a trace amount of free fluid. IMPRESSION: 1. Post-surgical changes, as above, with some trace fluid in the deep pelvis. 2. No acute disease.
[2017-04-17] MEDS ORDERED: Sodium Chloride 0.9% 500 ML IV ONE (20:50)
[2017-04-17] MEDS ORDERED: ACETAMINOPHEN 325 MG TABLET PO PRN (20:58)
[2017-04-17] MEDS ORDERED: Zolpidem Tab 5 MG TAB PO PRN (21:02)
--- NOTE | 2017-04-17 21:04 | PDOC ---
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 He said he followed up with Dr. Freitas there was no new recommendations. 2 days ago he started to have some lower abdominal discomfort he had fever yesterday as high as 102 and he didn't feel well. today he had also fever they call Dr. Freitas office they instructed him to come to the ER. in the ER he was given fluids, antibiotics they were thinking of Sending him home but his fever spiked to 103 and decided to admit him. Blood culture and urine culture was already taken. He feels better now, he is denying abdominal discomfort now. He did say that he vomited 3 times this morning in addition he did have one runny diarrhea. Didn't eat much today. There is no back pain or flank pain. Past Medical History Medical History: 1. Hypertension. 2. Hypercholesterolemia. 3. Prostate cancer with previous prostate surgery. 4. Paroxysmal A. fib. 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 Surgical History: 1. Prostate surgery. 2. Previous back surgery. 3. Cholecystectomy. 4. Status post cystectomy and ileal conduit formation November 2016 Family History: Reviewed an Not Pertinent Past Social History: Doesn't smoke doesn't drink no drugs. He lives in [facility]. Tobacco Use: Never Smoker Substance Use Type: None Alcohol Use: None Medication / Allergies Home Medications: Home Medications Medication Instructions Recorded Confirmed Type Aspirin 1 tab PO DAILY tab 06/01/14 04/17/17 History Multivitamin [Multivitamins] 1 tab PO DAILY 01/25/16 04/17/17 History Lactobacillus Combination No.4 1 each PO DAILY cap 02/07/16 04/17/17 History [Probiotic] Atorvastatin Calcium 1 tab PO DAILY tab 12/21/16 04/17/17 History Dexlansoprazole [Dexilant] 60 mg PO DAILY #90 cap 02/20/17 04/17/17 Clinic Apixaban [Eliquis] 5 mg PO BID #60 tab 02/23/17 04/17/17 Clinic Iron,Carbonyl [Iron] 45 mg PO DAILY 03/07/17 04/17/17 History Magnesium Oxide [Magnesium] 400 mg PO DAILY 03/07/17 04/17/17 History Melatonin 25 mg PO BEDTIME 03/07/17 04/17/17 History Sotalol HCl [Sotalol] 40 mg PO BID 03/07/17 04/17/17 History Amlodipine Besylate [Norvasc] 5 mg PO DAILY #30 tab 03/12/17 04/17/17 Rx Fenofibrate Nanocrystallized 145 mg PO DAILY #30 tab 03/20/17 04/17/17 Clinic [Fenofibrate] Zolpidem Tartrate [Zolpidem 1 tab PO QHS PRN #90 tab 04/06/17 04/17/17 Clinic Tartrate Er] Allergies/Adverse Reactions: Allergies Allergy/AdvReac Type Severity Reaction Status Date / Time ferrous gluconate Allergy Intermediate ITCHING Verified 04/17/17 20:50 Review of Systems - Review of Systems All Systems: Reviewed & No Additional Complaints Except as Stated Exam - General General Appearance: POSITIVE: No Acute Distress, Cooperative - Head Head Exam: POSITIVE: Normal Inspection, Atraumatic - Eye Eye Exam: POSITIVE: Normal Appearance - ENT ENT Exam: POSITIVE: Normal Exam - Neck Neck Exam: POSITIVE: Normal Inspection - Respiratory Respiratory Exam: POSITIVE: Clear to Auscultation - Bilaterally - Cardiovascular Cardiovascular Exam: POSITIVE: RRR - GI/Abdominal GI/Abdominal Exam: POSITIVE: Normal Bowel Sounds, Non Tender, Non Distended, Soft Additional GI/Abdominal Exam Details: Urostomy bag in the lower midabdomen - Rectal Rectal Exam: POSITIVE: Deferred - External Exam: POSITIVE: Deferred - Extremities Extremities Exam: POSITIVE: Normal Inspection - Back Back Exam: POSITIVE: Normal Inspection - Neurological Neurological Exam: POSITIVE: Alert, Oriented x 3, CN II-XII Intact, Speech Intact / Clear, Moves All Extremities Equally - Psychiatric Psychiatric Exam: POSITIVE: Normal Affect - Integumentary Integumentary Exam: POSITIVE: Normal Color Results - Labs CBC and BMP: 04/17/17 14:55 04/17/17 14:55 - Imaging Status: Report Reviewed by Me (CT abdomen showed post-surgeical chnages no acute disease X ray abdomen and chest no bowel obstruction) Assessment and Plan - Patient Problems (1) UTI (urinary tract infection) Current Visit: Yes Status: Acute Comment: I think will treat him aurinary tract infection, because of his history of previous Pseudomonas infection will put him on meropenem and also put him on Unasyn as at one time previously he had enterococcus will wait for culture result. if it is the same organism we may speak with infectious disease and see recommendation on treatment. Qualifiers: Urinary tract infection type: acute cystitis Hematuria presence: with hematuria Qualifier Code(s): (N30.01) Acute cystitis with hematuria (2) Paroxysmal a-fib Current Visit: Yes Status: Acute Comment: Continue previous medications (3) Hypertension Current Visit: No Status: Acute Comment: We'll hold off on his amlodipine for now and see what is his blood pressure tomorrow and then will decide whether we need to continue with it. Qualifiers: Hypertension type: essential hypertension Qualifier Code(s): (I10) Essential (primary) hypertension (4) Hypercholesterolemia Current Visit: No Status: Acute Comment: Same med
[2017-04-17] MEDS ORDERED: LIDOCAINE W/ SODIUM BICARB 0.5 ML SYR SUBD PRN (21:07)
[2017-04-17] MEDS ORDERED: PANTOPRAZOLE IV 40 MG VIAL ONE (21:21)
[2017-04-17] MEDS: Apixaban 5 MG TABLET PO SCH (22:16)
[2017-04-17] MEDS: Sotalol Tab 80 MG TAB PO SCH (22:16)
[2017-04-17] MEDS: Sodium Chloride 0.9% 1,000 ML PRIMARY IV SCH (22:18)
[2017-04-17] MEDS: Ampicillin/Sulbactam Inj 3 GM in Sodium Chloride 0.9% 100 ML IV SCH (22:22)
[2017-04-17] MEDS: Meropenem Inj 1 GM in Sodium Chloride 0.9% 100 ML IV SCH (23:02)
[2017-04-18] MEDS: Ampicillin/Sulbactam Inj 3 GM in Sodium Chloride 0.9% 100 ML IV SCH ×3 (03:12→15:34)
[2017-04-18] MEDS: Sodium Chloride 0.9% 1,000 ML PRIMARY IV SCH ×3 (04:45→22:09)
[2017-04-18] MEDS: Meropenem Inj 1 GM in Sodium Chloride 0.9% 100 ML IV SCH ×3 (04:52→20:57)
[2017-04-18 04:59] LABS: BASOPHILS # (AUTO) 0.02 10*3/UL; BASOPHILS % (AUTO) 0.3 % (0-1); EOSINOPHILS # (AUTO) 0.09 10*3/UL; EOSINOPHILS % (AUTO) 1.3 % (0-8); HEMATOCRIT 31.1 % (42.0-52.0); HEMOGLOBIN 10.4 g/dL (14.0-18.0); LYMPHOCYTES # (AUTO) 1.47 10*3/uL; MEAN CORPUSCULAR HEMOGLOBIN 29.1 PG (27-31); MEAN CORPUSCULAR HGB CONC 33.4 g/dL (33-37); MEAN CORPUSCULAR VOLUME 87.1 FL (80-90); MEAN PLATELET VOLUME 9.7 FL (7.4-12.2); MONOCYTES # (AUTO) 1.29 10*3/UL (0.3-0.8); MONOCYTES % (AUTO) 18.1 % (5-15); NEUTROPHILS # (AUTO) 4.24 10*3/UL; NEUTROPHILS % (AUTO) 59.4 % (50-80); RED BLOOD COUNT 3.57 10^6/uL (4.70-6.10)
[2017-04-18 05:02] LABS: PLATELET MORPHOLOGY COMMENT NORMAL MORPHOLOGY (NORM); RBC MORPHOLOGY COMMENT NORMAL MORPHOLOGY (NORM); WBC MORPHOLOGY COMMENT NORMAL MORPHOLOGY (NORM)
[2017-04-18 05:37] LABS: BUN/CREATININE RATIO 12.85 (6-20); CALCIUM 8.8 mg/dL (8.7-10.7); SERUM ALBUMIN 3.2 g/dL (3.5-4.8)
[2017-04-18] MEDS: PANTOPRAZOLE 40 MG TABLET PO SCH (08:14)
--- NOTE | 2017-04-18 08:22 | PDOC(PROG) ---
Date and Time of Service: 04/18/2017 8:21 AM Interval History: Subjective Patient is denying abdominal pain, no more vomiting no more diarrhea. No chills. Objective : Data - Labs CBC and BMP: 04/18/17 04:28 04/18/17 04:28 Labs - Last 24 Hours: Laboratory Results 04/18/17 Range/Units 04:28 WBC 7.13 (4.8-10.8) 10^3/uL RBC 3.57 L (4.70-6.10) 10^6/uL Hgb 10.4 L (14.0-18.0) g/dL Hct 31.1 L (42.0-52.0) % MCV 87.1 (80-90) FL MCH 29.1 (27-31) PG MCHC 33.4 (33-37) g/dL RDW Std Deviation 51.5 H (39-50) fL RDW Coeff of Jeanmarie 16.5 H (11.5-14.5) % Plt Count 297 (140-350) 10*3/uL MPV 9.7 (7.4-12.2) FL Immature Gran % (Auto) 0.3 (0-5) % Neut % (Auto) 59.4 (50-80) % Lymph % (Auto) 20.6 (10-50) % [place] % (Auto) 18.1 H (5-15) % Eos % (Auto) 1.3 (0-8) % Baso % (Auto) 0.3 (0-1) % Immature Gran # (Auto) 0.02 10*3/UL Neut # (Auto) 4.24 10*3/UL Lymph # (Auto) 1.47 10*3/uL [place] # (Auto) 1.29 H (0.3-0.8) 10*3/UL Eos # (Auto) 0.09 10*3/UL Baso # (Auto) 0.02 10*3/UL WBC Morphology Comment Normal morphology (NORM) Plt Morphology Comment Normal morphology (NORM) RBC Morph Comment Normal morphology (NORM) Sodium 133 L (135-145) meq/L Potassium 4.1 (3.8-5.2) meq/L Chloride 102 (98-112) meq/L Carbon Dioxide 22 L (23-33) meq/L Anion Gap 9 (5-20) BUN 18 (7-22) mg/dL Creatinine 1.4 (0.70-1.50) mg/dL Estimated GFR (>60 ml/min/1.73m(2)) BUN/Creatinine Ratio 12.85 (6-20) Glucose 112 H (78-110) mg/dL Calculated Osmolality 278.0 (267-292) mOsm/kg Calcium 8.8 (8.7-10.7) mg/dL Total Bilirubin 0.4 (0.3-1.2) mg/dL AST 21 (21-57) IU/L ALT 24 (21-72) IU/L Alkaline Phosphatase 40 (38-126) IU/L Total Protein 5.8 L (6.1-8.0) g/dL Albumin 3.2 L (3.5-4.8) g/dL Globulin 2.6 (2.50-4.10) g/dL Albumin/Globulin Ratio 1.20 L (1.3-2.0) mg/g Objective : Exam - General General Appearance: No Acute Distress, Cooperative - Head Head Exam: Normal Inspection - Eye Eye Exam: Normal Appearance - ENT ENT Exam: Normal Exam - Neck Neck Exam: Normal Inspection - Respiratory Respiratory Exam: Clear to Auscultation - Bilaterally - Cardiovascular Cardiovascular Exam: RRR - GI/Abdominal GI/Abdominal Exam: Normal Bowel Sounds, Non Tender, Non Distended, Soft Additional GI/Abdominal Exam Details: Urostomy bag in place - Rectal Rectal Exam: Deferred - External Exam: Deferred - Back Back Exam: Normal Inspection - Neurological Neurological Exam: Alert, Oriented x 3, CN II-XII Intact, Moves All Extremities Equally - Psychiatric Psychiatric Exam: Normal Affect Assessment and Plan - Patient Problems (1) UTI (urinary tract infection) Current Visit: Yes Status: Acute Comment: We treated him as urinary tract infection because of his presentation with abdominal pain and fever and vomiting. Will wait for the culture result I think I'll start cutting back on his fluid. If this is again Pseudomonas will speak with infectious disease and see their recommendation. Qualifiers: Urinary tract infection type: acute cystitis Hematuria presence: with hematuria Qualifier Code(s): (N30.01) Acute cystitis with hematuria (2) Paroxysmal a-fib Current Visit: Yes Status: Acute Comment: Continue same medications (3) Hypertension Current Visit: No Status: Acute Comment: We'll hold the amlodipine today. Qualifiers: Hypertension type: essential hypertension Qualifier Code(s): (I10) Essential (primary) hypertension (4) Hypercholesterolemia Current Visit: No Status: Acute Comment: Same med
[2017-04-18] MEDS: ASPIRIN 81 MG (BABY) CHEWABLE TABLET PO SCH (08:50)
[2017-04-18] MEDS: MAGNESIUM OXIDE 400 MG TABLET PO SCH (08:50)
[2017-04-18] MEDS: Sotalol Tab 80 MG TAB PO SCH ×2 (08:51→20:58)
[2017-04-18] MEDS: Apixaban 5 MG TABLET PO SCH ×2 (08:51→20:57)
[2017-04-18] MEDS: FENOFIBRATE 145 MG TABLET PO SCH (08:52)
[2017-04-18] MEDS ORDERED: AmLODIPine Tab 5 MG TABLET PO SCH (09:00)
[2017-04-18] MEDS ORDERED: CALCIUM CARBONATE 500 MG (TUMS) CHEWABLE TABLET PO PRN (18:26)
[2017-04-18] MEDS ORDERED: ATORVASTATIN 20 MG TABLET PO SCH (21:00)
[2017-04-19 04:13] VITALS: RESP 16
[2017-04-19] MEDS: Meropenem Inj 1 GM in Sodium Chloride 0.9% 100 ML IV SCH (04:35)
[2017-04-19] MEDS: PANTOPRAZOLE 40 MG TABLET PO SCH (08:49)
[2017-04-19] MEDS: FENOFIBRATE 145 MG TABLET PO SCH (09:31)
[2017-04-19] MEDS: ASPIRIN 81 MG (BABY) CHEWABLE TABLET PO SCH (09:31)
[2017-04-19] MEDS: Sotalol Tab 80 MG TAB PO SCH (09:32)
[2017-04-19] MEDS: Apixaban 5 MG TABLET PO SCH (09:32)
[2017-04-19] MEDS: MAGNESIUM OXIDE 400 MG TABLET PO SCH (09:32)
[2017-04-19] MEDS ORDERED: LEVOFLOXACIN 500 MG TABLET PO SCH (12:15)
[2017-04-19 12:38] VITALS: TEMP 97.7
--- NOTE | 2017-04-19 14:22 | DCSUMMARY ---
Hospitalization Summary Admit Date: 04/17/17 Discharge Date: 04/19/17 Hospital Course: Discharge diagnosis 1. Urinary tract infection with Pseudomonas 2. History of prostate cancer status post surgery 3. 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 Hypertension 5. Hypercholesterolemia 6. Admission to the hospital in February for Pseudomonas urinary tract infection Hospital course This is a 77 years old male with medical history significant for history of hypertension, history of prostate cancer status post surgery 2007, history of paroxysmal atrial fibrillation also history of radiation cystitis for which he had cystectomy with ileal conduit November 2016 and also recent admission to our hospital for sepsis secondary to Pseudomonas urinary tract infection at that time he was treated as an outpatient after discharge for 2 weeks with cefepime he was done with the treatment about 2 weeks ago. 2 days prior to this admission he started to have some lower abdominal discomfort he had fever the day before admission some as high as 102 and he didn't feel well. He went to ER after he started to have lower abdominal discomfort vomiting. He came into the ER was given fluids and antibiotic temperature spiked as high as 103 and he was admitted. By the time I saw him he started feel better his abdominal pain seemed to be improved. He had a CT of the abdomen which showed postsurgical changes otherwise nothing acute. X-ray of the chest and abdomen were negative. The only other abnormalities was in the urine so we decided to treat him as urinary tract infection this time we treated him with meropenem. He did receive Levaquin in the ER. The culture came back showing Pseudomonas. It was resistant to cefepime and resistant to imipenem. I did speak with infectious disease Dr Chauhan he suggested that the referring back to his the urologist and for this current infection suggested treatment with Levaquin as an outpatient. I did the contact [facility] to try to speak with Dr. Burns who did the surgery unfortunately couldn't get hold of her, I left her message . I think though we can discharge the patient home and the he finishes course as an outpatient. I did explain to him that this may come back again. I did explain to him and to his the potential side effect of confusion with Levaquin and need to stop if that's developed. Laboratory Results 04/17/17 04/17/17 04/18/17 Range/Units 14:50 14:55 04:28 WBC 9.31 7.13 (4.8-10.8) 10^3/uL RBC 4.01 L 3.57 L (4.70-6.10) 10^6/uL Hgb 11.2 L 10.4 L (14.0-18.0) g/dL Hct 34.5 L 31.1 L (42.0-52.0) % MCV 86.0 87.1 (80-90) FL MCH 27.9 29.1 (27-31) PG MCHC 32.5 L 33.4 (33-37) g/dL RDW Std Deviation 50.8 H 51.5 H (39-50) fL RDW Coeff of Jeanmarie 16.4 H 16.5 H (11.5-14.5) % Plt Count 385 H 297 (140-350) 10*3/uL MPV 8.9 9.7 (7.4-12.2) FL Immature Gran % (Auto) 0.1 0.3 (0-5) % Neut % (Auto) 75.6 59.4 (50-80) % Lymph % (Auto) 13.4 20.6 (10-50) % [place] % (Auto) 10.6 18.1 H (5-15) % Eos % (Auto) 0.2 1.3 (0-8) % Baso % (Auto) 0.1 0.3 (0-1) % Immature Gran # (Auto) 0.01 0.02 10*3/UL Neut # (Auto) 7.03 4.24 10*3/UL Lymph # (Auto) 1.25 1.47 10*3/uL [place] # (Auto) 0.99 H 1.29 H (0.3-0.8) 10*3/UL Eos # (Auto) 0.02 0.09 10*3/UL Baso # (Auto) 0.01 0.02 10*3/UL WBC Morphology Comment Normal morphology Normal morphology (NORM) Plt Morphology Comment Normal morphology Normal morphology (NORM) RBC Morph Comment Normal morphology Normal morphology (NORM) Sodium 133 L 133 L (135-145) meq/L Potassium 3.9 4.1 (3.8-5.2) meq/L Chloride 101 102 (98-112) meq/L Carbon Dioxide 22 L 22 L (23-33) meq/L Anion Gap 10 9 (5-20) BUN 18 18 (7-22) mg/dL Creatinine 1.4 1.4 (0.70-1.50) mg/dL Estimated GFR (>60 ml/min/1.73m(2)) BUN/Creatinine Ratio 12.85 12.85 (6-20) Glucose 113 H 112 H (78-110) mg/dL Calculated Osmolality 278.0 278.0 (267-292) mOsm/kg Lactic Acid 0.8 (0.70-2.10) MMOL/L Calcium 8.7 8.8 (8.7-10.7) mg/dL Total Bilirubin 0.4 0.4 (0.3-1.2) mg/dL AST 21 21 (21-57) IU/L ALT 23 24 (21-72) IU/L Alkaline Phosphatase 40 40 (38-126) IU/L Total Protein 6.4 5.8 L (6.1-8.0) g/dL Albumin 3.5 3.2 L (3.5-4.8) g/dL Globulin 2.9 2.6 (2.50-4.10) g/dL Albumin/Globulin Ratio 1.20 L 1.20 L (1.3-2.0) mg/g Ur Collection Type Clean catch urine Urine Color Yellow Urine Clarity Clear (CLEAR) Urine pH 6.0 (5.0-8.5) Ur Specific [place] 1.010 (1.005-1.030) Urine Protein 30 (NEG) mg/dl Urine Glucose (UA) Negative (NEG) mg/dL Urine Ketones Negative (NEG) Urine Occult Blood Moderate H (NEG) Urine Nitrate Positive H (NEG) Urine Bilirubin Negative (NEG) Urine Urobilinogen 0.2 (0.2) EU/dL Ur Leukocyte Esterase Large (NEG) Urine RBC 10-15 (NONE) /hpf Urine WBC >100 (NONE) Ur Squamous Epith Cells None (NONE) Ur Renal Epithelial Cell None (NONE) Urine Crystals None Urine Bacteria Few (NONE) Urine Casts None (NONE) Urine Mucus None (NONE) Urine Trichomonas None (NONE) Urine Yeast None (NONE) Ur Culture Indicated? Culture set Discharge instruction Diet regular Activity as started Medications Home Medications Medication Instructions Recorded Confirmed Type Aspirin 1 tab PO DAILY tab 06/01/14 04/17/17 History Multivitamin [Multivitamins] 1 tab PO DAILY 01/25/16 04/17/17 History Lactobacillus Combination No.4 1 each PO DAILY cap 02/07/16 04/17/17 History [Probiotic] Atorvastatin Calcium 1 tab PO DAILY tab 12/21/16 04/17/17 History Dexlansoprazole [Dexilant] 60 mg PO DAILY #90 cap 02/20/17 04/17/17 Clinic Apixaban [Eliquis] 5 mg PO BID #60 tab 02/23/17 04/17/17 Clinic Iron,Carbonyl [Iron] 45 mg PO DAILY 03/07/17 04/17/17 History Magnesium Oxide [Magnesium] 400 mg PO DAILY 03/07/17 04/17/17 History Melatonin 25 mg PO BEDTIME 03/07/17 04/17/17 History Sotalol HCl [Sotalol] 40 mg PO BID 03/07/17 04/17/17 History Amlodipine Besylate [Norvasc] 5 mg PO DAILY #30 tab 03/12/17 04/17/17 Rx Fenofibrate Nanocrystallized 145 mg PO DAILY #30 tab 03/20/17 04/17/17 Clinic [Fenofibrate] Zolpidem Tartrate [Zolpidem 1 tab PO QHS PRN #90 tab 04/06/17 04/17/17 Clinic Tartrate ER] Levofloxacin [Levaquin] 500 mg PO DAILY #12 tab 04/19/17 Rx Follow-up with the Dr. Baird next week and with urology as scheduled next week Condition at discharge was stable for discharge Exam - Vitals Vital Signs: Vital Signs Temperature 97.7 F Temperature Source Oral Pulse Rate [Pulse Oximeter] 56 Pulse Rate 71 Respiratory Rate 16 Blood Pressure [Right Arm] 107/50 Blood Pressure 134/65 Pulse Ox 97 Oxygen Delivery Method Room Air Height 6 ft 3 in Weight 184 lb 3.2 oz - General General Appearance: POSITIVE: No Acute Distress, Cooperative - Head Head Exam: POSITIVE: Normal Inspection, Atraumatic - Eye Eye Exam: POSITIVE: Normal Appearance - ENT ENT Exam: POSITIVE: Normal Exam - Neck Neck Exam: POSITIVE: Normal Inspection - Respiratory Respiratory Exam: POSITIVE: Clear to Auscultation - Bilaterally - Cardiovascular Cardiovascular Exam: POSITIVE: RRR - GI/Abdominal GI/Abdominal Exam: POSITIVE: Normal Bowel Sounds, Non Tender, Non Distended, Soft Additional GI/Abdominal Exam Details: Urostomy bag in place - External Exam: POSITIVE: Deferred - Extremities Extremities Exam: POSITIVE: Normal Inspection - Back Back Exam: POSITIVE: Normal Inspection - Neurological Neurological Exam: POSITIVE: Alert, Oriented x 3, CN II-XII Intact - Psychiatric Psychiatric Exam: POSITIVE: Normal Affect Patient Problems - Patient Problem List (1) UTI (urinary tract infection) Status: Acute Qualifiers: Urinary tract infection type: acute cystitis Hematuria presence: with hematuria Qualifier Code(s): (N30.01) Acute cystitis with hematuria (2) Paroxysmal a-fib Status: Acute (3) Hypertension Status: Acute Qualifiers: Hypertension type: essential hypertension Qualifier Code(s): (I10) Essential (primary) hypertension (4) Hypercholesterolemia Status: Acute
== END 2017-04-19 14:57 | disposition home or self-care (01) | DRG 690 ==
LOC: ER 14:08 → MED/SURG 19:54
PROVIDERS: ADMIT Internal Medicine; ATTEND Internal Medicine
DX: N39.0 Urinary tract infection, site not specified (principal); R10.9 Unspecified abdominal pain; R50.9 Fever, unspecified; R11.10 Vomiting, unspecified; B96.5 Pseudomonas (aeruginosa) (mallei) (pseudomallei) as the cause of diseases classified elsewhere; Z85.46 Personal history of malignant neoplasm of prostate; I10 Essential (primary) hypertension; E78.00 Pure hypercholesterolemia, unspecified; I48.0 Paroxysmal atrial fibrillation
CPT/HCPCS: 36415; 74022; 74177; 80053; 81001; 81003; 83605; 85025; 87040; 87077; 87088; 87186; 87205; 94761; 96365; 96375; 99284; J0295; J1956; J2185; J2270; J2405; J3490; J7030; J7050

== ENCOUNTER → 2017-04-26 | Outpatient (CLI) | payer OTHER | LOC: MMPC 09:00 | PROVIDERS: ATTEND Family Medicine | DX: R53.83 Other fatigue (principal) | CPT/HCPCS: 99213; G0463 ==

== ENCOUNTER → 2017-05-15 | Outpatient (CLI) | payer OTHER | LOC: MMPC 11:11 | PROVIDERS: ATTEND Surgery | DX: I48.91 Unspecified atrial fibrillation (principal); Z79.01 Long term (current) use of anticoagulants | CPT/HCPCS: 99212; G0463 ==

== ENCOUNTER → 2017-06-13 | Outpatient (CLI) | payer OTHER | LOC: MMPC 09:00 | PROVIDERS: ATTEND Family Medicine | DX: R63.4 Abnormal weight loss (principal); D64.89 Other specified anemias | CPT/HCPCS: 99213; G0463 ==

== ENCOUNTER 2017-06-26 21:01 | Inpatient (IN) | payer OTHER ==
[2017-06-26] MEDS ORDERED: ONDANSETRON 4 MG/2 ML VIAL IVP ONE (21:39)
[2017-06-26] MEDS ORDERED: Acetaminophen 1000mg Inj 1,000 MG in Premix 1 BAG IV ONE (21:39)
[2017-06-26] MEDS ORDERED: Sodium Chloride 0.9% 1,000 ML PRIMARY IV ONE (21:39)
--- NOTE | 2017-06-26 21:45 | PDOC ---
Gen Adult / Medical Screen HPI - General Chief Complaint: General Medical Stated Complaint: nausea dizzy Date Seen by Provider: 06/26/17 Time Seen by Provider: 21:37 Source: POSITIVE: Patient, Spouse Exam Limitations: POSITIVE: No limitations Nurse's Notes Reviewed & Considered: Yes - Indicators Temperature Between 95 and 101 Degrees: No (101.1) Respirations Between 12 and 20: Yes Blood Pressure Between 100-165 (sys) and 60-100 (yoon): Yes Pulse Range Between 60-105 (100 for age > 60 years): Yes Chest or Abdominal Pain: No Inability to Walk: No Pt Reports Active High Risk Cond. (TB/Hepatitis/HIV/Chemo): No Abnormal Mental Status: No - History of Present Illness Initial Comments: This pleasant 77-year-old male comes in today complaining of fever and vomiting. Patient states he began to feel poorly on Sunday with decreased appetite. He states he only had milk to drink and nothing to eat. Today he began to run a fever to 102.5. In addition he began to have episodes of dry heaves. Patient had a bladder resection and ileostomy matured in November of this year. He subsequently developed a Pseudomonas infection in March of this year and has been treated with nitrofurantoin. He also has a headache tonight. No chest pain or shortness of breath, he does have dizziness and positional hypotension. He has had an episode of diarrhea today. Body Location Affected: REPORTS: Abdomen Timing: REPORTS: Abrupt Duration: <24 hours Similar Symptoms Previously: No Recent Care Received: REPORTS: Denies Any Prior Injuries Related to Current Complaint?: No - Patient Home Medications Home Medications: Home Medications Aspirin 1 tab PO DAILY tab 06/01/14 Multivitamin [Multivitamins] 1 tab PO DAILY 01/25/16 Lactobacillus Combination No.4 [Probiotic] 1 each PO DAILY cap 02/07/16 Atorvastatin Calcium 1 tab PO DAILY tab 12/21/16 Dexlansoprazole [Dexilant] 60 mg PO DAILY #90 cap 02/20/17 Apixaban [Eliquis] 5 mg PO BID #60 tab 02/23/17 Iron,Carbonyl [Iron] 45 mg PO DAILY 03/07/17 Magnesium Oxide [Magnesium] 400 mg PO DAILY 03/07/17 Melatonin 25 mg PO BEDTIME 03/07/17 Sotalol HCl [Sotalol] 40 mg PO BID 03/07/17 Amlodipine Besylate [Norvasc] 5 mg PO DAILY #30 tab 03/12/17 Fenofibrate Nanocrystallized [Fenofibrate] 145 mg PO DAILY #30 tab 03/20/17 Zolpidem Tartrate [Zolpidem Tartrate ER] 1 tab PO QHS PRN #90 tab 04/06/17 Nitrofurantoin Macrocrystal [Nitrofurantoin] 1 cap PO DAILY cap 06/12/17 Mupirocin 22 gm TOPICAL QD tube 06/13/17 - Patient Allergies Allergies/Adverse Reactions: Allergies Allergy/AdvReac Type Severity Reaction Status Date / Time ferrous gluconate Allergy Intermediate ITCHING Verified 06/28/17 06:42 Past Medical History - heen HEENT History: Denies History, Hard of Hearing Additional HEENT History: READING GLASSES. HAD CATARACT REMOVED Cardiovascular History: Hypertension, Hyperlipidemia Respiratory History: Denies History Additional Respiratory History: SEASONAL ALLERGIES Gastrointestinal History: GERD Additional Genitourinary History: HAD PROSTATECTOMY MARCH 2015/ POST SX IN[place]. HAD PROCEDURE DONE WHERE THEY PLACE A "SHUT OFF VALVE" IN [place]. HE MUST OPEN VALVE IN ORDER TO VOID Endocrine History: Denies History Musculoskeletal History: Arthritis, Back Pain Prosthesis or Implant: Yes (LOWER BACK) Neurological History: Migraines Additional Neurological History: LAST MONTH DEC Blood Disorders: Denies History Psychiatric History: Denies History History of Sexually Transmitted Diseases: No Cancer History: Other (please comment) Cancer Treatment / Date(s) of Treatment: SURGERY History of MDRO: Yes History of Other Communicable Diseases: No Alcohol Use: Rarely Substance Use Type: None Previous Surgical History: Yes Type / Date of Surgery: MARCH 2015 PROSTATECTOMY/ AUGUST 2015 "VALVE" IN [place] / LUMBAR FUSION/ KELI/ EGD/COLONOSCOPY. left hernia/foot surgery/gallbladder/ prosthesis removal/right knee scope Anesthesia Reactions: Yes (PONV/HAS SCOPE PATCH FROM DR LAN FOR SX) Malignant Hyperthermia: No Significant Family History: No pertinent family hx Additional Family History: MOTHER PASSED FROM BREAST CANCER AND FATHER FROM PROTATE ROS - Limitations ROS Limitations: No Limitations Constitution: REPORTS: Fever Cardiovascular: REPORTS: Denies Cardiac Symptoms Respiratory: REPORTS: Denies Resp Symptoms Neurological: REPORTS: Headache Gastrointestinal: REPORTS: Nausea, Vomitting, Diarrhea Endocrine: REPORTS: Denies Symptoms Musculoskeletal: REPORTS: Denies MS Symptoms Genitourinary: REPORTS: Other (Urostomy present) Eyes: REPORTS: Denies Symptoms ENT: REPORTS: Denies Symptoms Skin: REPORTS: Denies Skin Symptoms Lympathic: REPORTS: Denies Lympathic Symptoms Immunologic: POSITIVE: Denies Symptoms Psychiatric: POSITIVE: Denies Psych Symptoms Gen Adult/Medical Screen Exam - General Appearance General Appearance: POSITIVE: Alert, Cooperative, No Acute Distress, No Evidence of Trauma - HEENT HEENT: POSITIVE: Head Inspection Nml, Eyes Inspection Nml, Ears Inspection Nml, Nose Inspection Nml, Oral/Dental Inspect. Nml, Pharynx Inspect. Nml, PERRL, EOMI - Pupils Pupil Size: 5 mm: Bilateral - Neck Neck: POSITIVE: Normal Inspection, Thyroid Normal - Respiratory Respiratory: POSITIVE: No Respiratory Distress, Breath Sounds Normal, Chest Non- Tender - Cardiovascular Cardiovascular: POSITIVE: Regular Rate & Rhythm, No Murmur, No Gallop, PMI Normal - Abdomen Abdomen: Soft: (All Quadrants), Normal Bowel Sounds: (All Quadrants), Denies Tenderness: (RLQ), (LLQ), (RUQ), Tenderness Noted: (LUQ) - Back Back: POSITIVE: Normal Inspection - Neurological / Psychological Mental Status: POSITIVE: Mood Normal, Affect Normal Orientation: POSITIVE: Oriented x 3 - Skin Skin: POSITIVE: Normal Color, Warm, Dry, No Rash - Extremities Extremity: Non-Tender: (All Extremities), Normal ROM: (All Extremities), Normal Inspection: (All Extremities), Pelvis Stable: (All Extremities) Procedures - Laceration/Wound Repair Did patient have a laceration repair: No Gen Adlt/Medical Scrn Progress - Results Reviewed by me Xrays/CTs/US Reviewed by me: Yes Discussed with Radiologist: Yes Lab Results Reviewed: Yes Lab Results:: Laboratory Results 06/26/17 06/26/17 06/26/17 Range/Units 21:10 21:55 23:00 WBC 14.43 H (4.8-10.8) 10^3/uL RBC 4.74 (4.70-6.10) 10^6/uL Hgb 13.8 L (14.0-18.0) g/dL Hct 39.9 L (42.0-52.0) % MCV 84.2 (80-90) FL MCH 29.1 (27-31) PG MCHC 34.6 (33-37) g/dL RDW Std Deviation 46.8 (39-50) fL RDW Coeff of Jeanmarie 15.4 H (11.5-14.5) % Plt Count 451 H (140-350) 10*3/uL MPV 9.0 (7.4-12.2) FL Immature Gran % (Auto) 0.3 (0-5) % Neut % (Auto) 81.7 H (50-80) % Lymph % (Auto) 8.0 L (10-50) % [place] % (Auto) 9.6 (5-15) % Eos % (Auto) 0.1 (0-8) % Baso % (Auto) 0.3 (0-1) % Immature Gran # (Auto) 0.05 10*3/UL Neut # (Auto) 11.78 10*3/UL Lymph # (Auto) 1.16 10*3/uL [place] # (Auto) 1.38 H (0.3-0.8) 10*3/UL Eos # (Auto) 0.02 10*3/UL Baso # (Auto) 0.04 10*3/UL WBC Morphology Comment Normal morphology (NORM) Plt Morphology Comment Normal morphology (NORM) RBC Morph Comment Normal morphology (NORM) VBG pH 7.41 (7.32-7.42) VBG pCO2 27 L (45-55) mmHg VBG HCO3 17 L (22-26) mmol/L VBG Base Excess -8 L (-2-2) MMOL/L Sodium 128 L (135-145) meq/L Potassium 4.7 (3.8-5.2) meq/L Chloride 98 (98-112) meq/L Carbon Dioxide 19 L (23-33) meq/L Anion Gap 11 (5-20) BUN 23 H (7-22) mg/dL Creatinine 1.5 (0.70-1.50) mg/dL Estimated GFR (>60 ml/min/1.73m(2)) BUN/Creatinine Ratio 15.33 (6-20) Glucose 138 H (78-110) mg/dL Calculated Osmolality 271.0 (267-292) mOsm/kg Lactic Acid 1.4 (0.70-2.10) MMOL/L Calcium 9.8 (8.7-10.7) mg/dL Total Bilirubin 0.7 (0.3-1.2) mg/dL AST 23 (21-57) IU/L ALT 26 (21-72) IU/L Alkaline Phosphatase 49 (38-126) IU/L C-Reactive Protein 7.1 H (0.0-0.9) mg/dL Total Protein 7.5 (6.1-8.0) g/dL Albumin 4.2 (3.5-4.8) g/dL Globulin 3.3 (2.50-4.10) g/dL Albumin/Globulin Ratio 1.20 L (1.3-2.0) mg/g Ur Collection Type Clean catch urine Urine Color Yellow Urine Clarity Clear (CLEAR) Urine pH 6.5 (5.0-8.5) Ur Specific [place] 1.010 (1.005-1.030) Urine Protein 100 (NEG) mg/dl Urine Glucose (UA) Negative (NEG) mg/dL Urine Ketones Negative (NEG) Urine Occult Blood Small H (NEG) Urine Nitrate Positive H (NEG) Urine Bilirubin Negative (NEG) Urine Urobilinogen 0.2 (0.2) EU/dL Ur Leukocyte Esterase Small (NEG) Urine RBC 4-8 (NONE) /hpf Urine WBC 9-14 (NONE) Ur Squamous Epith Cells None (NONE) Ur Renal Epithelial Cell Many (NONE) Urine Crystals Many Urine Bacteria Many (NONE) Urine Casts None (NONE) Urine Mucus Many (NONE) Urine Trichomonas None (NONE) Urine Yeast None (NONE) Ur Culture Indicated? Culture set - Patient's Progress Status: POSITIVE: Improved MDM / ED Course: The patient was examined, an IV started, blood drawn and sent to lab for studies , radiographic examinations were obtained. Findings: CT scan shows no acute intra-abdominal abnormalities. CBC shows elevated white count. Urinalysis shows positive nitrites and many bacteria. Assessment: Pyelonephritis Plan: Admission for IV antibiotics. Patient received Fortaz here in the emergency room. - Consult Consult (If Yes, Name of Consulting MD & Time Called): Yes (Dr. goode, [id number]) Counseled: POSITIVE: Patient, Family, RE: Lab Results, RE: Radiology Results, RE : DX Patient Care Time - Estimated PCT Patient Care Time (In Minutes): 45 Vital Signs - Recent Vital Signs Vital Signs: Vital Signs (Last 8 hours) Temp Pulse Pulse Resp BP Pulse Ox 06/28/17 08:29 98.2 F 85 18 152/74 93 06/28/17 07:00 75 06/28/17 05:00 97.8 F 75 20 156/80 98 - VS Reviewed Vital Signs Reviewed: Yes Discharge Clinical Impression: Sepsis due to urinary tract infection Discharge Disposition: Admit to Inpatient Condition: Stable Date Decision to Admit to Inpatient: 06/26/17 Time Decision to Admit to Inpatient: 23:15
[2017-06-26 21:47] LABS: BASOPHILS # (AUTO) 0.04 10*3/UL; BASOPHILS % (AUTO) 0.3 % (0-1); EOSINOPHILS # (AUTO) 0.02 10*3/UL; EOSINOPHILS % (AUTO) 0.1 % (0-8); HEMATOCRIT 39.9 % (42.0-52.0); HEMOGLOBIN 13.8 g/dL (14.0-18.0); LYMPHOCYTES # (AUTO) 1.16 10*3/uL; MEAN CORPUSCULAR HEMOGLOBIN 29.1 PG (27-31); MEAN CORPUSCULAR HGB CONC 34.6 g/dL (33-37); MEAN CORPUSCULAR VOLUME 84.2 FL (80-90); MONOCYTES # (AUTO) 1.38 10*3/UL (0.3-0.8); MONOCYTES % (AUTO) 9.6 % (5-15); NEUTROPHILS # (AUTO) 11.78 10*3/UL; NEUTROPHILS % (AUTO) 81.7 % (50-80); RED BLOOD COUNT 4.74 10^6/uL (4.70-6.10)
[2017-06-26 21:54] LABS: PLATELET MORPHOLOGY COMMENT NORMAL MORPHOLOGY (NORM); RBC MORPHOLOGY COMMENT NORMAL MORPHOLOGY (NORM); WBC MORPHOLOGY COMMENT NORMAL MORPHOLOGY (NORM)
[2017-06-26 21:55] LABS: BUN/CREATININE RATIO 15.33 (6-20); C-REACTIVE PROTEIN 7.1 mg/dL (0.0-0.9); CALCIUM 9.8 mg/dL (8.7-10.7); SERUM ALBUMIN 4.2 g/dL (3.5-4.8)
[2017-06-26 22:08] LABS: VENOUS PH 7.41 (7.32-7.42)
--- NOTE | 2017-06-26 22:41 | DI ---
HISTORY: Fever. PREVIOUS EXAM: None available. TECHNIQUE: PA and lateral views of the chest are obtained. FINDINGS: Images of the chest demonstrate clear lungs. The cardiomediastinum and bony thorax are unr emarkable. Mild degenerative changes of the spine are seen. IMPRESSION: 1. No acute cardiopulmonary disease.
--- NOTE | 2017-06-26 22:46 | DI ---
HISTORY: Nausea and vomiting. PREVIOUS EXAM: April 17, 2017. TECHNIQUE: Multiple helically acquired CT images are obtained through the abdomen and pelvis without contrast. FINDINGS: CT images demonstrate clear lung bases. Peripheral vascular calcifications are seen. Coron pauline artery calcifications are also seen. Patient is status post cholecystectomy. There is an ileostomy noted within the right mid-abdomen. Post-surgical changes of the spine are seen. Multiple colonic diverticula are noted. There is what ap pears to be an ileal conduit within the left anterior abdominal wall containing a balloon catheter. There is stable left-sided hydronephrosis. Multiple surgical clips are seen within the deep pelvis. T here are some hyperdense exophytic cysts noted which were seen on the prior exam involving both kidne ys. Colonic diverticula are noted without evidence of acute diverticulitis. A new penile prosthesis is noted. Degenerative changes of the sacroiliac joints, spine and hips are noted. IMPRESSION: 1. No acute intra-abdominal pathology. 2. Multiple post-surgical changes as above.
[2017-06-26 23:12] LABS: BILIRUBIN,URINE NEGATIVE (NEG); CLARITY,URINE CLEAR (CLEAR); COLOR,URINE YELLOW; GLUCOSE, URINE (UA) NEGATIVE (NEG); NITRATE,URINE POSITIVE (NEG); OCCULT BLOOD,URINE SMALL (NEG); PH,URINE 6.5 (5.0-8.5); PROTEIN,URINE 100 mg/dl (NEG); UROBILINOGEN,URINE 0.2 EU/dL (0.2)
[2017-06-26] MEDS ORDERED: cefTAZidime Inj 2 GM in Sodium Chloride 0.9% 100 ML IV ONE (23:14)
[2017-06-26 23:21] LABS: URINE SAMPLE TYPE CLEAN CATCH URINE
[2017-06-26 23:22] LABS: BACTERIA,URINE MANY; RENAL EPITHELIAL CELLS,URINE MANY; URINE CRYSTALS MANY
[2017-06-27] MEDS ORDERED: Sodium Chloride 0.9% 1,000 ML PRIMARY IV ONE (00:18)
[2017-06-27] MEDS ORDERED: ONDANSETRON 4 MG/2 ML VIAL IVP PRN (01:18)
[2017-06-27] MEDS ORDERED: CALCIUM CARBONATE 500 MG (TUMS) CHEWABLE TABLET PO PRN (01:18)
[2017-06-27] MEDS ORDERED: ZOLPIDEM TARTRATE PO PRN (01:18)
[2017-06-27] MEDS ORDERED: LIDOCAINE W/ SODIUM BICARB 0.5 ML SYR SUBD PRN (01:18)
[2017-06-27] MEDS ORDERED: ACETAMINOPHEN 325 MG TABLET PO PRN (01:18)
--- NOTE | 2017-06-27 01:28 | PDOC ---
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 He states he has been on macrobid to help prevent Pseudomonas UTI's for two months. This is typically managed by the [facility] urology department, with the thought of even flushing the conduit with gentamicin via my review of the record. The patient states that Sunday, he felt weak, had joint pains, no rashes, and felt nausea. He states the fever started Sunday and he came in for evaluation. He was actually seen in the clinic with a work up plan for 06/27/2017 of labs and a UA. His fever made him change courses and come to the ER. Here, he got fortaz, fluids, and tylenol, and the patient states that all helped. This is his third presentation to the hospital this year since the ileal conduit was placed in November. The two prior hospitalizations were significant for different Pseudomonas strains causing UTI. Past Medical History Medical History: 1. Hypertension. 2. Hypercholesterolemia. 3. Prostate cancer with previous prostate surgery. 4. Paroxysmal A. fib. 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 Surgical History: 1. Prostate surgery. 2. Previous back surgery. 3. Cholecystectomy. 4. Status post cystectomy and ileal conduit formation November 2016 Family History: Reviewed an Not Pertinent Pertinent Family History: significant for prostate cancer in his father and breast cancer in his mother. Past Social History: Doesn't smoke doesn't drink no drugs. He lives in [facility]. for over 50 years. Has one living child. Two passed in separate car wrecks. One passed in hospital shortly after being born. Tobacco Use: Former Smoker Substance Use Type: None Alcohol Use: None Medication / Allergies Home Medications: Home Medications Medication Instructions Recorded Confirmed Type Aspirin 1 tab PO DAILY tab 06/01/14 06/26/17 History Multivitamin [Multivitamins] 1 tab PO DAILY 01/25/16 06/26/17 History Lactobacillus Combination No.4 1 each PO DAILY cap 02/07/16 06/26/17 History [Probiotic] Atorvastatin Calcium 1 tab PO DAILY tab 12/21/16 06/26/17 History Dexlansoprazole [Dexilant] 60 mg PO DAILY #90 cap 02/20/17 06/26/17 Clinic Apixaban [Eliquis] 5 mg PO BID #60 tab 02/23/17 06/26/17 Clinic Iron,Carbonyl [Iron] 45 mg PO DAILY 03/07/17 06/26/17 History Magnesium Oxide [Magnesium] 400 mg PO DAILY 03/07/17 06/26/17 History Melatonin 25 mg PO BEDTIME 03/07/17 06/26/17 History Sotalol HCl [Sotalol] 40 mg PO BID 03/07/17 06/26/17 History Amlodipine Besylate [Norvasc] 5 mg PO DAILY #30 tab 03/12/17 06/26/17 Rx Fenofibrate Nanocrystallized 145 mg PO DAILY #30 tab 03/20/17 06/26/17 Clinic [Fenofibrate] Zolpidem Tartrate [Zolpidem 1 tab PO QHS PRN #90 tab 04/06/17 06/26/17 Clinic Tartrate ER] Nitrofurantoin Macrocrystal 1 cap PO DAILY cap 06/12/17 06/26/17 History [Nitrofurantoin] Mupirocin 22 gm TOPICAL QD tube 06/13/17 06/26/17 History Allergies/Adverse Reactions: Allergies Allergy/AdvReac Type Severity Reaction Status Date / Time ferrous gluconate Allergy Intermediate ITCHING Verified 06/26/17 21:40 Review of Systems - Review of Systems All Systems: Reviewed & No Additional Complaints Except as Stated (I did a 12 point review of systems and it was negative except as per HPI and that noted below:) - Constitutional Constitutional: REPORTS: Weight Gain (eight pounds), Fever/Chills, Diffuse Myalgias, Malaise - Respiratory Respiratory: DENIES: Negative System Review, Cough, Sputum, Dyspnea At Rest, Dyspnea with Exertion, Pleuritic Pain, Hemoptysis, Wheezing, Other, See HPI - Cardiovascular Cardiovascular: DENIES: Negative System Review, Chest Pain, Edema, Syncope, Palpitations, Orthopnea, Paroxysmal Nocturnal Dyspnea, Other, See HPI - Gastrointestinal Gastrointestinal / Abdominal: REPORTS: Other (mild left lower quadrant pain) - Genitourinary Genitourinary: REPORTS: See HPI - Hematlogic / Lymphatic Hematologic / Lymphatic: REPORTS: Other (easy bruising) - Neurological Neurologic: REPORTS: Headache (frequent, had headache tonight relieved by tylenol) Exam - Vitals Vital Signs: Vital Signs Oxygen Delivery Method Room Air Height 6 ft 1 in Weight 189 lb 9.6 oz - General General Appearance: POSITIVE: No Acute Distress, Cooperative - Head Head Exam: POSITIVE: Normal Inspection, Normocephalic, Atraumatic - Eye Eye Exam: POSITIVE: No Scleral Icterus - ENT ENT Exam: POSITIVE: Mucous Membranes Moist - Neck Neck Exam: POSITIVE: Normal Inspection, No Tenderness, No Thyromegaly - Respiratory Respiratory Exam: POSITIVE: Clear to Auscultation - Bilaterally, Breathing Non Labored, Normal to Percussion and Palpation - Cardiovascular Cardiovascular Exam: POSITIVE: No Murmur, No Clicks, No Gallops, No Rubs, Irregular Rhythm, No JVD - GI/Abdominal GI/Abdominal Exam: POSITIVE: Normal Bowel Sounds, Non Tender, Non Distended, Soft Additional GI/Abdominal Exam Details: ileal conduit bag with urine that looks clear. - Rectal Rectal Exam: POSITIVE: Deferred - External Exam: POSITIVE: Deferred Additional Exam Details: ileal conduit urine clear testes decended bilaterally - Extremities Extremities Exam: POSITIVE: No Clubbing Present, No Edema Present, No Cyanosis Present - Back Back Exam: POSITIVE: Normal Inspection, No CVA Tenderness - Neurological Neurological Exam: POSITIVE: Alert, Oriented x 3, No Facial Droop, Speech Intact / Clear, Moves All Extremities Equally - Psychiatric Psychiatric Exam: POSITIVE: Normal Affect, Normal Mood - Integumentary Integumentary Exam: POSITIVE: Normal Color, Warm, Dry, Intact - Central Line Examination Central Line Present on Admission: No Results - Labs CBC and BMP: 06/26/17 21:10 06/26/17 21:10 Labs - Last 24 Hours: Laboratory Results 06/26/17 06/26/17 06/26/17 Range/Units 21:10 21:55 23:00 WBC 14.43 H (4.8-10.8) 10^3/uL RBC 4.74 (4.70-6.10) 10^6/uL Hgb 13.8 L (14.0-18.0) g/dL Hct 39.9 L (42.0-52.0) % MCV 84.2 (80-90) FL MCH 29.1 (27-31) PG MCHC 34.6 (33-37) g/dL RDW Std Deviation 46.8 (39-50) fL RDW Coeff of Jeanmarie 15.4 H (11.5-14.5) % Plt Count 451 H (140-350) 10*3/uL MPV 9.0 (7.4-12.2) FL Immature Gran % (Auto) 0.3 (0-5) % Neut % (Auto) 81.7 H (50-80) % Lymph % (Auto) 8.0 L (10-50) % [place] % (Auto) 9.6 (5-15) % Eos % (Auto) 0.1 (0-8) % Baso % (Auto) 0.3 (0-1) % Immature Gran # (Auto) 0.05 10*3/UL Neut # (Auto) 11.78 10*3/UL Lymph # (Auto) 1.16 10*3/uL [place] # (Auto) 1.38 H (0.3-0.8) 10*3/UL Eos # (Auto) 0.02 10*3/UL Baso # (Auto) 0.04 10*3/UL WBC Morphology Comment Normal morphology (NORM) Plt Morphology Comment Normal morphology (NORM) RBC Morph Comment Normal morphology (NORM) VBG pH 7.41 (7.32-7.42) VBG pCO2 27 L (45-55) mmHg VBG HCO3 17 L (22-26) mmol/L VBG Base Excess -8 L (-2-2) MMOL/L Sodium 128 L (135-145) meq/L Potassium 4.7 (3.8-5.2) meq/L Chloride 98 (98-112) meq/L Carbon Dioxide 19 L (23-33) meq/L Anion Gap 11 (5-20) BUN 23 H (7-22) mg/dL Creatinine 1.5 (0.70-1.50) mg/dL Estimated GFR (>60 ml/min/1.73m(2)) BUN/Creatinine Ratio 15.33 (6-20) Glucose 138 H (78-110) mg/dL Calculated Osmolality 271.0 (267-292) mOsm/kg Lactic Acid 1.4 (0.70-2.10) MMOL/L Calcium 9.8 (8.7-10.7) mg/dL Total Bilirubin 0.7 (0.3-1.2) mg/dL AST 23 (21-57) IU/L ALT 26 (21-72) IU/L Alkaline Phosphatase 49 (38-126) IU/L C-Reactive Protein 7.1 H (0.0-0.9) mg/dL Total Protein 7.5 (6.1-8.0) g/dL Albumin 4.2 (3.5-4.8) g/dL Globulin 3.3 (2.50-4.10) g/dL Albumin/Globulin Ratio 1.20 L (1.3-2.0) mg/g Ur Collection Type Clean catch urine Urine Color Yellow Urine Clarity Clear (CLEAR) Urine pH 6.5 (5.0-8.5) Ur Specific [place] 1.010 (1.005-1.030) Urine Protein 100 (NEG) mg/dl Urine Glucose (UA) Negative (NEG) mg/dL Urine Ketones Negative (NEG) Urine Occult Blood Small H (NEG) Urine Nitrate Positive H (NEG) Urine Bilirubin Negative (NEG) Urine Urobilinogen 0.2 (0.2) EU/dL Ur Leukocyte Esterase Small (NEG) Urine RBC 4-8 (NONE) /hpf Urine WBC 9-14 (NONE) Ur Squamous Epith Cells None (NONE) Ur Renal Epithelial Cell Many (NONE) Urine Crystals Many Urine Bacteria Many (NONE) Urine Casts None (NONE) Urine Mucus Many (NONE) Urine Trichomonas None (NONE) Urine Yeast None (NONE) Ur Culture Indicated? Culture set - Imaging Status: Image Reviewed by Me (CXR, negative for pneumonia on my view CT of the abdomen and pelvise, on my view, left hydronephrosis. some calcifications noted ; radiologist felt there were multiple diverticuli but no acute or new findings. ) Assessment and Plan - Patient Problems (1) UTI (urinary tract infection) Current Visit: Yes Status: Acute Qualifiers: Urinary tract infection type: acute cystitis Hematuria presence: without hematuria Qualified Description: Acute cystitis without hematuria Qualifier Code(s): (N30.00) Acute cystitis without hematuria (2) GERD (gastroesophageal reflux disease) Current Visit: Yes Status: Chronic Qualifiers: Esophagitis presence: esophagitis presence not specified Qualifier Code (s): (K21.9) Gastro-esophageal reflux disease without esophagitis (3) Hypercholesterolemia Current Visit: Yes Status: Chronic (4) Hypertension Current Visit: Yes Status: Chronic Qualifiers: Hypertension type: essential hypertension Qualifier Code(s): (I10) Essential (primary) hypertension (5) Paroxysmal a-fib Current Visit: Yes Status: Chronic (6) History of ileal conduit Current Visit: Yes Status: Acute - Assessment / Plan Additional Assessment/Plan Details: admit the patient empirically treat with Fortaz, await culture results (blood, urine) hold macrodantin for now continue medications for Afib check labs tomorrow IV fluids May need ID follow up if no improvement soon in course of this infection tylenol PRN fever FULL CODE, I discussed with the patient The patient agrees with the plan above.
[2017-06-27] MEDS: ZOLPIDEM 10 MG TABLET PO PRN (02:22)
[2017-06-27] MEDS: cefTAZidime Inj 2 GM in Sodium Chloride 0.9% 100 ML IV SCH ×3 (02:31→17:22)
[2017-06-27] MEDS: Sodium Chloride 0.9% 1,000 ML PRIMARY IV SCH ×2 (02:32→09:19)
--- NOTE | 2017-06-27 03:54 | EKG ---
[address] [address] Measurements Intervals [place] Rate: 98 P: 38 WV: 192 QRS: 17 QRSD: 105 T: 59 QT: 352 QTc: 407 Interpretive Statements SINUS RHYTHM Compared to ECG 03/08/2017 06:57:19 Myocardial infarct finding no longer present Electronically Signed On 06-27-17 08:34:25 MDT by Valente Fowler MD [email or web address]
[2017-06-27 05:53] LABS: BASOPHILS # (AUTO) 0.02 10*3/UL; BASOPHILS % (AUTO) 0.2 % (0-1); EOSINOPHILS # (AUTO) 0.02 10*3/UL; EOSINOPHILS % (AUTO) 0.2 % (0-8); HEMATOCRIT 38.5 % (42.0-52.0); HEMOGLOBIN 12.8 g/dL (14.0-18.0); LYMPHOCYTES # (AUTO) 1.14 10*3/uL; MEAN CORPUSCULAR HEMOGLOBIN 28.4 PG (27-31); MEAN CORPUSCULAR HGB CONC 33.2 g/dL (33-37); MEAN CORPUSCULAR VOLUME 85.6 FL (80-90); MEAN PLATELET VOLUME 9.5 FL (7.4-12.2); MONOCYTES # (AUTO) 1.23 10*3/UL (0.3-0.8); MONOCYTES % (AUTO) 10.9 % (5-15); NEUTROPHILS # (AUTO) 8.81 10*3/UL; NEUTROPHILS % (AUTO) 78.3 % (50-80)
[2017-06-27 06:11] LABS: PLATELET MORPHOLOGY COMMENT NORMAL MORPHOLOGY (NORM); RBC MORPHOLOGY COMMENT NORMAL MORPHOLOGY (NORM); WBC MORPHOLOGY COMMENT NORMAL MORPHOLOGY (NORM)
[2017-06-27] MEDS ORDERED: LACTOBACILLUS COMBINATION NO 4 PO SCH (09:00)
[2017-06-27] MEDS: Sotalol Tab 80 MG TAB PO SCH ×2 (09:07→21:19)
[2017-06-27] MEDS: Apixaban 5 MG TABLET PO SCH ×2 (09:07→21:20)
[2017-06-27] MEDS: Multivitamin Tab 1 TAB PO SCH (09:07)
[2017-06-27] MEDS: MAGNESIUM OXIDE 400 MG TABLET PO SCH (09:07)
[2017-06-27] MEDS: OMEPRAZOLE 40 MG CAPSULE PO SCH (09:07)
[2017-06-27] MEDS: FENOFIBRATE 145 MG TABLET PO SCH (09:08)
[2017-06-27] MEDS: ATORVASTATIN 20 MG TABLET PO SCH (09:19)
[2017-06-27] MEDS: ASPIRIN 81 MG (BABY) CHEWABLE TABLET PO SCH (09:19)
[2017-06-27] MEDS: AmLODIPine Tab 5 MG TABLET PO SCH (09:20)
[2017-06-27] MEDS ORDERED: Sodium Chloride 0.9% 1,000 ML PRIMARY IV SCH (11:30)
[2017-06-27] MEDS: ACETAMINOPHEN 500 MG TABLET PO PRN ×2 (11:46→21:20)
[2017-06-27] MEDS: ACIDOPHILUS/BULGARICUS CHEWABLE TABLET PO SCH (11:49)
[2017-06-27] MEDS: oxyCODONE IR Tab 5 MG TAB PO PRN ×2 (13:55→23:38)
[2017-06-27] MEDS ORDERED: MELATONIN PO SCH (21:00)
[2017-06-27] MEDS: NORMAL SALINE 10 ML SYRINGE FLUSH IVP PRN (22:14)
[2017-06-27] MEDS ORDERED: GUAIFENESIN 600 MG TABLET PO ONE (22:55)
[2017-06-28] MEDS: cefTAZidime Inj 2 GM in Sodium Chloride 0.9% 100 ML IV SCH ×3 (01:09→17:17)
[2017-06-28] MEDS: OMEPRAZOLE 40 MG CAPSULE PO SCH (06:12)
--- NOTE | 2017-06-28 08:50 | PDOC(PROG) ---
Date and Time of Service: 06/28/2017 8:48 AM Interval History: Subjective Patient feels better compared to when he came in, he came in with history of dry heaves, fever and not feeling well. The fever and dry heaving started the day before but the symptoms of not feeling well started last Sunday. Since her last time I saw him he was seen by the urologist in [place] and from his description he had some x-rays and he was put on Macrobid and he was taking it. Objective : Data - Labs CBC and BMP: 06/27/17 05:05 06/27/17 05:05 Objective : Exam - General General Appearance: No Acute Distress, Cooperative - Head Head Exam: Normal Inspection - Eye Eye Exam: Normal Appearance - ENT ENT Exam: Normal Exam - Neck Neck Exam: Normal Inspection - Respiratory Respiratory Exam: Clear to Auscultation - Bilaterally - Cardiovascular Cardiovascular Exam: RRR - GI/Abdominal GI/Abdominal Exam: Normal Bowel Sounds, Non Tender, Non Distended, Soft Additional GI/Abdominal Exam Details: Urine bag in place - Rectal Rectal Exam: Deferred - External Exam: Deferred - Extremities Extremities Exam: Normal Inspection - Back Back Exam: Normal Inspection - Neurological Neurological Exam: Alert, Oriented x 3, CN II-XII Intact, Speech Intact / Clear , Moves All Extremities Equally - Psychiatric Psychiatric Exam: Normal Affect - Integumentary Integumentary Exam: Normal Color Assessment and Plan - Patient Problems (1) UTI (urinary tract infection) Current Visit: Yes Status: Acute Comment: He is been treated as urinary tract infection, continue [facility] until we have culture result. Qualifiers: Urinary tract infection type: acute cystitis Hematuria presence: without hematuria Qualified Description: Acute cystitis without hematuria Qualifier Code(s): (N30.00) Acute cystitis without hematuria (2) A-fib Current Visit: No Status: Acute Comment: Same med Qualifiers: Atrial fibrillation type: paroxysmal Qualified Description: Paroxysmal atrial fibrillation Qualifier Code(s): (I48.0) Paroxysmal atrial fibrillation (3) Hypertension Current Visit: Yes Status: Chronic Comment: Same medications Qualifiers: Hypertension type: essential hypertension Qualified Description: Essential hypertension Qualifier Code(s): (I10) Essential (primary) hypertension
[2017-06-28] MEDS: AmLODIPine Tab 5 MG TABLET PO SCH (09:23)
[2017-06-28] MEDS: Multivitamin Tab 1 TAB PO SCH (09:23)
[2017-06-28] MEDS: ASPIRIN 81 MG (BABY) CHEWABLE TABLET PO SCH (09:23)
[2017-06-28] MEDS: ATORVASTATIN 20 MG TABLET PO SCH (09:23)
[2017-06-28] MEDS: ACIDOPHILUS/BULGARICUS CHEWABLE TABLET PO SCH (09:23)
[2017-06-28] MEDS: GUAIFENESIN 600 MG TABLET PO SCH ×2 (09:23→20:35)
[2017-06-28] MEDS: MAGNESIUM OXIDE 400 MG TABLET PO SCH (09:23)
[2017-06-28] MEDS: FENOFIBRATE 145 MG TABLET PO SCH (09:23)
[2017-06-28] MEDS: Sotalol Tab 80 MG TAB PO SCH ×2 (09:23→20:35)
[2017-06-28] MEDS: Apixaban 5 MG TABLET PO SCH ×2 (09:24→20:34)
[2017-06-28] MEDS: ACETAMINOPHEN 500 MG TABLET PO PRN (11:40)
[2017-06-28] MEDS: ZOLPIDEM 10 MG TABLET PO PRN (20:37)
[2017-06-29] MEDS: cefTAZidime Inj 2 GM in Sodium Chloride 0.9% 100 ML IV SCH ×2 (00:36→09:47)
[2017-06-29 06:22] LABS: BASOPHILS # (AUTO) 0.01 10*3/UL; BASOPHILS % (AUTO) 0.1 % (0-1); EOSINOPHILS # (AUTO) 0.17 10*3/UL; EOSINOPHILS % (AUTO) 2.4 % (0-8); HEMATOCRIT 34.8 % (42.0-52.0); HEMOGLOBIN 11.7 g/dL (14.0-18.0); LYMPHOCYTES # (AUTO) 1.41 10*3/uL; MEAN CORPUSCULAR HEMOGLOBIN 28.8 PG (27-31); MEAN CORPUSCULAR HGB CONC 33.6 g/dL (33-37); MEAN CORPUSCULAR VOLUME 85.7 FL (80-90); MEAN PLATELET VOLUME 9.4 FL (7.4-12.2); MONOCYTES # (AUTO) 0.96 10*3/UL (0.3-0.8); MONOCYTES % (AUTO) 13.5 % (5-15); NEUTROPHILS # (AUTO) 4.52 10*3/UL; NEUTROPHILS % (AUTO) 63.8 % (50-80); RED BLOOD COUNT 4.06 10^6/uL (4.70-6.10)
[2017-06-29 06:52] LABS: BUN/CREATININE RATIO 13.07 (6-20); CALCIUM 9.1 mg/dL (8.7-10.7)
[2017-06-29 07:15] LABS: PLATELET MORPHOLOGY COMMENT NORMAL MORPHOLOGY (NORM); RBC MORPHOLOGY COMMENT NORMAL MORPHOLOGY (NORM); WBC MORPHOLOGY COMMENT NORMAL MORPHOLOGY (NORM)
[2017-06-29 08:18] VITALS: RESP 16
[2017-06-29] MEDS: OMEPRAZOLE 40 MG CAPSULE PO SCH (08:24)
[2017-06-29] MEDS: FENOFIBRATE 145 MG TABLET PO SCH (09:36)
[2017-06-29] MEDS: Sotalol Tab 80 MG TAB PO SCH (09:36)
[2017-06-29] MEDS: ACIDOPHILUS/BULGARICUS CHEWABLE TABLET PO SCH (09:36)
[2017-06-29] MEDS: GUAIFENESIN 600 MG TABLET PO SCH (09:36)
[2017-06-29] MEDS: AmLODIPine Tab 5 MG TABLET PO SCH (09:37)
[2017-06-29] MEDS: ATORVASTATIN 20 MG TABLET PO SCH (09:37)
[2017-06-29] MEDS: MAGNESIUM OXIDE 400 MG TABLET PO SCH (09:38)
[2017-06-29] MEDS: Multivitamin Tab 1 TAB PO SCH (09:38)
[2017-06-29] MEDS: Apixaban 5 MG TABLET PO SCH (09:38)
[2017-06-29] MEDS: ASPIRIN 81 MG (BABY) CHEWABLE TABLET PO SCH (09:38)
[2017-06-29] MEDS: NORMAL SALINE 10 ML SYRINGE FLUSH IVP PRN (09:48)
--- NOTE | 2017-06-29 11:37 | PDOC(PROG) ---
Date and Time of Service: 06/29/2017 11:36 AM Interval History: Subjective Patient feels better, denying complaint. No abdominal pain he had bowel movement. No shortness of breath. Objective : Data - Labs CBC and BMP: 06/29/17 05:11 06/29/17 05:11 Labs - Last 24 Hours: Laboratory Results 06/29/17 Range/Units 05:11 WBC 7.09 (4.8-10.8) 10^3/uL RBC 4.06 L (4.70-6.10) 10^6/uL Hgb 11.7 L (14.0-18.0) g/dL Hct 34.8 L (42.0-52.0) % MCV 85.7 (80-90) FL MCH 28.8 (27-31) PG MCHC 33.6 (33-37) g/dL RDW Std Deviation 47.8 (39-50) fL RDW Coeff of Jeanmarie 15.4 H (11.5-14.5) % Plt Count 365 H (140-350) 10*3/uL MPV 9.4 (7.4-12.2) FL Immature Gran % (Auto) 0.3 (0-5) % Neut % (Auto) 63.8 (50-80) % Lymph % (Auto) 19.9 (10-50) % Elbert % (Auto) 13.5 (5-15) % Eos % (Auto) 2.4 (0-8) % Baso % (Auto) 0.1 (0-1) % Immature Gran # (Auto) 0.02 10*3/UL Neut # (Auto) 4.52 10*3/UL Lymph # (Auto) 1.41 10*3/uL Elbert # (Auto) 0.96 H (0.3-0.8) 10*3/UL Eos # (Auto) 0.17 10*3/UL Baso # (Auto) 0.01 10*3/UL WBC Morphology Comment Normal morphology (NORM) Plt Morphology Comment Normal morphology (NORM) RBC Morph Comment Normal morphology (NORM) Sodium 134 L (135-145) meq/L Potassium 4.0 (3.8-5.2) meq/L Chloride 104 (98-112) meq/L Carbon Dioxide 21 L (23-33) meq/L Anion Gap 9 (5-20) BUN 17 (7-22) mg/dL Creatinine 1.3 (0.70-1.50) mg/dL Estimated GFR (>60 ml/min/1.73m(2)) BUN/Creatinine Ratio 13.07 (6-20) Glucose 94 (78-110) mg/dL Calculated Osmolality 279.0 (267-292) mOsm/kg Calcium 9.1 (8.7-10.7) mg/dL Objective : Exam - General General Appearance: No Acute Distress, Cooperative - Head Head Exam: Normal Inspection - Eye Eye Exam: Normal Appearance - ENT ENT Exam: Normal Exam - Neck Neck Exam: Normal Inspection - Respiratory Respiratory Exam: Clear to Auscultation - Bilaterally - Cardiovascular Cardiovascular Exam: RRR - GI/Abdominal GI/Abdominal Exam: Normal Bowel Sounds, Non Tender, Non Distended, Soft Additional GI/Abdominal Exam Details: Urine bag in place. - Rectal Rectal Exam: Deferred - External Exam: Deferred - Extremities Extremities Exam: Normal Inspection - Back Back Exam: Normal Inspection - Neurological Neurological Exam: Alert, Oriented x 3, CN II-XII Intact - Psychiatric Psychiatric Exam: Normal Affect Assessment and Plan - Patient Problems (1) UTI (urinary tract infection) Status: Acute Comment: Urine grew pseudomonas , blood culture is negative. I left a message for infectious disease we'll see what they would suggest in terms of treatment. Qualifiers: Urinary tract infection type: acute cystitis Hematuria presence: without hematuria Qualified Description: Acute cystitis without hematuria Qualifier Code(s): (N30.00) Acute cystitis without hematuria (2) A-fib Status: Acute Comment: Same medications Qualifiers: Atrial fibrillation type: paroxysmal Qualified Description: Paroxysmal atrial fibrillation Qualifier Code(s): (I48.0) Paroxysmal atrial fibrillation (3) Hypertension Status: Chronic Comment: Same medications Qualifiers: Hypertension type: essential hypertension Qualified Description: Essential hypertension Qualifier Code(s): (I10) Essential (primary) hypertension
[2017-06-29 12:10] VITALS: TEMP 97.7
--- NOTE | 2017-06-29 14:52 | DCSUMMARY ---
Hospitalization Summary Admit Date: 06/27/17 Discharge Date: 06/29/17 Hospital Course: Discharge diagnoses 1. Urinary tract infection with Pseudomonas 2. History of atrial fibrillation 3. History of prostate cancer 4. 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 He was admitted to the hospital twice this year, the last time I saw him we arranged for him to be followed up by [facility] urology department and they put him on Macrobid. He Was doing well until the day of admission when he started to have fever in addition to fatigue. In the ER Had a CT of the abdomen there was no significant findings, chest x-ray was unremarkable. Had blood culture which was negative. UA showed some abnormalities and culture grew Pseudomonas. He was started empirically on ceftazidime before getting the culture result. I saw him the next day of admission he was making improvement and the same treatment, the culture results came on the day of discharge and showed Pseudomonas. I did speak with infectious disease as this his third presentation to our hospital, infectious disease suggested IV antibiotics for 2 weeks I talked to the patient about that he had that done before and he is does not want to do it again he said it was very hard on him to go to the hospital twice a day last time and he doesn't want to do it again. We decided to discharge him on oral antibiotics with Levaquin that the organism was sensitive to the and follow-up with the infectious disease next week. He did have Levaquin before and had no side effects from it. I Did explain to him there is a potential for resistant developing with Levaquin. Laboratory Results 06/26/17 06/26/17 06/26/17 Range/Units 21:10 21:55 23:00 WBC 14.43 H (4.8-10.8) 10^3/uL RBC 4.74 (4.70-6.10) 10^6/uL Hgb 13.8 L (14.0-18.0) g/dL Hct 39.9 L (42.0-52.0) % MCV 84.2 (80-90) FL MCH 29.1 (27-31) PG MCHC 34.6 (33-37) g/dL RDW Std Deviation 46.8 (39-50) fL RDW Coeff of Jeanmarie 15.4 H (11.5-14.5) % Plt Count 451 H (140-350) 10*3/uL MPV 9.0 (7.4-12.2) FL Immature Gran % (Auto) 0.3 (0-5) % Neut % (Auto) 81.7 H (50-80) % Lymph % (Auto) 8.0 L (10-50) % Victoria % (Auto) 9.6 (5-15) % Eos % (Auto) 0.1 (0-8) % Baso % (Auto) 0.3 (0-1) % Immature Gran # (Auto) 0.05 10*3/UL Neut # (Auto) 11.78 10*3/UL Lymph # (Auto) 1.16 10*3/uL Victoria # (Auto) 1.38 H (0.3-0.8) 10*3/UL Eos # (Auto) 0.02 10*3/UL Baso # (Auto) 0.04 10*3/UL WBC Morphology Comment Normal morphology (NORM) Plt Morphology Comment Normal morphology (NORM) RBC Morph Comment Normal morphology (NORM) VBG pH 7.41 (7.32-7.42) VBG pCO2 27 L (45-55) mmHg VBG HCO3 17 L (22-26) mmol/L VBG Base Excess -8 L (-2-2) MMOL/L Sodium 128 L (135-145) meq/L Potassium 4.7 (3.8-5.2) meq/L Chloride 98 (98-112) meq/L Carbon Dioxide 19 L (23-33) meq/L Anion Gap 11 (5-20) BUN 23 H (7-22) mg/dL Creatinine 1.5 (0.70-1.50) mg/dL Estimated GFR (>60 ml/min/1.73m(2)) BUN/Creatinine Ratio 15.33 (6-20) Glucose 138 H (78-110) mg/dL Calculated Osmolality 271.0 (267-292) mOsm/kg Lactic Acid 1.4 (0.70-2.10) MMOL/L Calcium 9.8 (8.7-10.7) mg/dL Total Bilirubin 0.7 (0.3-1.2) mg/dL AST 23 (21-57) IU/L ALT 26 (21-72) IU/L Alkaline Phosphatase 49 (38-126) IU/L C-Reactive Protein 7.1 H (0.0-0.9) mg/dL Total Protein 7.5 (6.1-8.0) g/dL Albumin 4.2 (3.5-4.8) g/dL Globulin 3.3 (2.50-4.10) g/dL Albumin/Globulin Ratio 1.20 L (1.3-2.0) mg/g Ur Collection Type Clean catch urine Urine Color Yellow Urine Clarity Clear (CLEAR) Urine pH 6.5 (5.0-8.5) Ur Specific [place] 1.010 (1.005-1.030) Urine Protein 100 (NEG) mg/dl Urine Glucose (UA) Negative (NEG) mg/dL Urine Ketones Negative (NEG) Urine Occult Blood Small H (NEG) Urine Nitrate Positive H (NEG) Urine Bilirubin Negative (NEG) Urine Urobilinogen 0.2 (0.2) EU/dL Ur Leukocyte Esterase Small (NEG) Urine RBC 4-8 (NONE) /hpf Urine WBC 9-14 (NONE) Ur Squamous Epith Cells None (NONE) Ur Renal Epithelial Cell Many (NONE) Urine Crystals Many Urine Bacteria Many (NONE) Urine Casts None (NONE) Urine Mucus Many (NONE) Urine Trichomonas None (NONE) Urine Yeast None (NONE) Ur Culture Indicated? Culture set 06/27/17 06/29/17 Range/Units 05:05 05:11 WBC 11.25 H 7.09 (4.8-10.8) 10^3/uL RBC 4.50 L 4.06 L (4.70-6.10) 10^6/uL Hgb 12.8 L 11.7 L (14.0-18.0) g/dL Hct 38.5 L 34.8 L (42.0-52.0) % MCV 85.6 85.7 (80-90) FL MCH 28.4 28.8 (27-31) PG MCHC 33.2 33.6 (33-37) g/dL RDW Std Deviation 47.5 47.8 (39-50) fL RDW Coeff of Jeanmarie 15.4 H 15.4 H (11.5-14.5) % Plt Count 391 H 365 H (140-350) 10*3/uL MPV 9.5 9.4 (7.4-12.2) FL Immature Gran % (Auto) 0.3 0.3 (0-5) % Neut % (Auto) 78.3 63.8 (50-80) % Lymph % (Auto) 10.1 19.9 (10-50) % Victoria % (Auto) 10.9 13.5 (5-15) % Eos % (Auto) 0.2 2.4 (0-8) % Baso % (Auto) 0.2 0.1 (0-1) % Immature Gran # (Auto) 0.03 0.02 10*3/UL Neut # (Auto) 8.81 4.52 10*3/UL Lymph # (Auto) 1.14 1.41 10*3/uL Victoria # (Auto) 1.23 H 0.96 H (0.3-0.8) 10*3/UL Eos # (Auto) 0.02 0.17 10*3/UL Baso # (Auto) 0.02 0.01 10*3/UL WBC Morphology Comment Normal morphology Normal morphology (NORM) Plt Morphology Comment Normal morphology Normal morphology (NORM) RBC Morph Comment Normal morphology Normal morphology (NORM) VBG pH (7.32-7.42) VBG pCO2 (45-55) mmHg VBG HCO3 (22-26) mmol/L VBG Base Excess (-2-2) MMOL/L Sodium 134 L 134 L (135-145) meq/L Potassium 4.5 4.0 (3.8-5.2) meq/L Chloride 102 104 (98-112) meq/L Carbon Dioxide 22 L 21 L (23-33) meq/L Anion Gap 10 9 (5-20) BUN 21 17 (7-22) mg/dL Creatinine 1.4 1.3 (0.70-1.50) mg/dL Estimated GFR (>60 ml/min/1.73m(2)) BUN/Creatinine Ratio 15.00 13.07 (6-20) Glucose 111 H 94 (78-110) mg/dL Calculated Osmolality 281.0 279.0 (267-292) mOsm/kg Lactic Acid (0.70-2.10) MMOL/L Calcium 9.0 9.1 (8.7-10.7) mg/dL Total Bilirubin (0.3-1.2) mg/dL AST (21-57) IU/L ALT (21-72) IU/L Alkaline Phosphatase (38-126) IU/L C-Reactive Protein (0.0-0.9) mg/dL Total Protein (6.1-8.0) g/dL Albumin (3.5-4.8) g/dL Globulin (2.50-4.10) g/dL Albumin/Globulin Ratio (1.3-2.0) mg/g Ur Collection Type Urine Color Urine Clarity (CLEAR) Urine pH (5.0-8.5) Ur Specific [place] (1.005-1.030) Urine Protein (NEG) mg/dl Urine Glucose (UA) (NEG) mg/dL Urine Ketones (NEG) Urine Occult Blood (NEG) Urine Nitrate (NEG) Urine Bilirubin (NEG) Urine Urobilinogen (0.2) EU/dL Ur Leukocyte Esterase (NEG) Urine RBC (NONE) /hpf Urine WBC (NONE) Ur Squamous Epith Cells (NONE) Ur Renal Epithelial Cell (NONE) Urine Crystals Urine Bacteria (NONE) Urine Casts (NONE) Urine Mucus (NONE) Urine Trichomonas (NONE) Urine Yeast (NONE) Ur Culture Indicated? Discharge instruction Diet regular Activity as started Medication Home Medications Medication Instructions Recorded Confirmed Type Aspirin 1 tab PO DAILY tab 06/01/14 06/26/17 History Multivitamin [Multivitamins] 1 tab PO DAILY 01/25/16 06/26/17 History Lactobacillus Combination No.4 1 each PO DAILY cap 02/07/16 06/26/17 History [Probiotic] Atorvastatin Calcium 1 tab PO DAILY tab 12/21/16 06/26/17 History Dexlansoprazole [Dexilant] 60 mg PO DAILY #90 cap 02/20/17 06/26/17 Clinic Apixaban [Eliquis] 5 mg PO BID #60 tab 02/23/17 06/26/17 Clinic Iron,Carbonyl [Iron] 45 mg PO DAILY 03/07/17 06/26/17 History Magnesium Oxide [Magnesium] 400 mg PO DAILY 03/07/17 06/26/17 History Melatonin 25 mg PO BEDTIME 03/07/17 06/26/17 History Sotalol HCl [Sotalol] 40 mg PO BID 03/07/17 06/26/17 History Amlodipine Besylate [Norvasc] 5 mg PO DAILY #30 tab 03/12/17 06/26/17 Rx Fenofibrate Nanocrystallized 145 mg PO DAILY #30 tab 03/20/17 06/26/17 Clinic [Fenofibrate] Zolpidem Tartrate [Zolpidem 1 tab PO QHS PRN #90 tab 04/06/17 06/26/17 Clinic Tartrate ER] Levofloxacin [Levaquin] 500 mg PO DAILY #10 tablet 06/29/17 Rx Follow-up with PCP in 1-2 weeks, with infectious disease next week condition at discharge was stable for discharge Exam - Vitals Vital Signs: Vital Signs Temperature 97.7 F Temperature Source Temporal Artery Scan Pulse Rate [Pulse Oximeter] 67 Pulse Rate 77 Respiratory Rate 16 Blood Pressure [Left Arm] 142/68 Blood Pressure 101/68 Pulse Ox 97 Oxygen Delivery Method Room Air Height 6 ft 1 in Weight 189 lb 9.6 oz Patient Problems - Patient Problem List (1) UTI (urinary tract infection) Status: Acute Qualifiers: Urinary tract infection type: acute cystitis Hematuria presence: without hematuria Qualified Description: Acute cystitis without hematuria Qualifier Code(s): (N30.00) Acute cystitis without hematuria (2) A-fib Status: Acute Qualifiers: Atrial fibrillation type: paroxysmal Qualified Description: Paroxysmal atrial fibrillation Qualifier Code(s): (I48.0) Paroxysmal atrial fibrillation (3) Hypertension Status: Chronic Qualifiers: Hypertension type: essential hypertension Qualified Description: Essential hypertension Qualifier Code(s): (I10) Essential (primary) hypertension
== END 2017-06-29 13:49 | disposition home or self-care (01) | DRG 690 ==
LOC: ER 21:01 → MED/SURG 23:14
PROVIDERS: ADMIT Family Medicine; ATTEND Family Medicine
DX: N39.0 Urinary tract infection, site not specified (principal); A41.89 Other specified sepsis; B96.5 Pseudomonas (aeruginosa) (mallei) (pseudomallei) as the cause of diseases classified elsewhere; I48.91 Unspecified atrial fibrillation; I10 Essential (primary) hypertension; K21.9 Gastro-esophageal reflux disease without esophagitis; E78.00 Pure hypercholesterolemia, unspecified
CPT/HCPCS: 36415 ×2; 71020; 74176; 80053; 81001; 81003; 82803; 83605; 85025; 86140; 87040; 87077; 87088; 87186 ×2; 93005; 93010; 96361; 96374; 96375; 99285 ×2; J0131; J2405; 80048; 94761; J0713; J7030; J7050

== ENCOUNTER 2018-06-25 15:10 | Observation (INO) ==
[2018-06-25] MEDS ORDERED: Sodium Chloride 0.9% 1,000 ML PRIMARY IV ONE (15:38)
[2018-06-25 15:46] LABS: BASOPHILS # (AUTO) 0.01 10*3/UL; BASOPHILS % (AUTO) 0.1 % (0-1); EOSINOPHILS # (AUTO) 0.12 10*3/UL; EOSINOPHILS % (AUTO) 1.6 % (0-8); Hematocrit [HCT] 37.3 % (42.0-52.0); Hemoglobin [HGB] 12.6 g/dL (14.0-18.0); LYMPHOCYTES # (AUTO) 2.39 10*3/uL; MEAN CORPUSCULAR HEMOGLOBIN 30.5 PG (27-31); MEAN CORPUSCULAR HGB CONC 33.8 g/dL (33-37); MEAN CORPUSCULAR VOLUME 90.3 FL (80-90); MEAN PLATELET VOLUME 9.2 FL (7.4-12.2); NEUTROPHILS # (AUTO) 4.34 10*3/UL; NEUTROPHILS % (AUTO) 57.8 % (50-80); RED BLOOD COUNT 4.13 10^6/uL (4.70-6.10)
[2018-06-25 15:48] LABS: PLATELET MORPHOLOGY COMMENT NORMAL MORPHOLOGY (NORM); RBC MORPHOLOGY COMMENT NORMAL MORPHOLOGY (NORM); WBC MORPHOLOGY COMMENT NORMAL MORPHOLOGY (NORM)
--- NOTE | 2018-06-25 15:52 | EKG ---
[address] [address] Measurements Intervals [place] Rate: 73 P: 63 TX: 202 QRS: 49 QRSD: 106 T: 55 QT: 387 QTc: 413 Interpretive Statements SINUS RHYTHM Compared to ECG 06/26/2017 21:15:29 No significant changes Electronically Signed On 06-26-18 08:29:33 MDT by Valente Fowler MD [email or web address]
[2018-06-25 16:04] LABS: BLOOD UREA NITROGEN 32 mg/dL (7-22); BUN/CREATININE RATIO 18.82 (6-20); LIPASE 316 IU/L (23-300); SERUM ALBUMIN 3.4 g/dL (3.5-4.8)
[2018-06-25] MEDS ORDERED: Acetaminophen 1000mg Inj 1,000 MG/100 ML VIAL IV PRN (16:14)
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
--- NOTE | 2018-06-25 17:45 | DI ---
CT CHEST SCAN WITHOUT IV CONTRAST, 06/25/2018 3:40 PM : Clinical History: Trauma to the chest. The patient has renal insufficiency and therefore no IV contra st was administered. Previous Exam: None at this facility. Scans are performed from the base of the neck to the lower lung bases without IV contrast. Sagittal a nd coronal images using non MIPS and MIPS technique are generated. The base of the neck and thoracic inlet are normal. There are no abnormal axillary, supraclavicular, mediastinal, or hilar nodes. The heart is normal. Calcifications are present in the proximal and midd le thirds of the LAD, the proximal portion of the left circumflex artery, and in the right coronary a rtery from the origin to the PDA. There is no pneumothorax or pulmonary contusion or pleural effusion . No pulmonary nodules are identified. There is diffuse osteoporosis. No fractures of the thoracic sp ine are identified. There are degenerative changes in the upper thoracic spine. The ribs, sternum, cl avicles, scapulae, and shoulders are normal. READIN. Normal CT chest scan without IV contrast. There is no pulmonary contusion, pneumothorax, or pleur al effusion. 2. Osteoporosis. No fractures in the areas described above are seen.
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
[2018-06-25] MEDS ORDERED: MORPHINE SULFATE 2 MG/1 ML IVP ONE ×2 (18:29→18:57)
[2018-06-25 18:37] LABS: BILIRUBIN,URINE NEGATIVE (NEG); CLARITY,URINE CLOUDY (CLEAR); COLOR,URINE YELLOW (Y); GLUCOSE, URINE (UA) NEGATIVE (NEG); OCCULT BLOOD,URINE Trace-intact (NEG); PH,URINE 6.5 (5.0-8.5); PROTEIN,URINE 30 mg/dl (NEG); UROBILINOGEN,URINE 0.2 EU/dL (0.2)
[2018-06-25 18:40] LABS: BACTERIA,URINE MANY; URINE CRYSTALS MANY; URINE SAMPLE TYPE VOIDED SPECIMEN; WBC,URINE >100
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
[2018-06-25] MEDS ORDERED: CETIRIZINE HCL 5 MG PO SCH (20:33)
[2018-06-25] MEDS ORDERED: Ondansetron ODT Tab 8 MG TAB PO PRN (20:33)
[2018-06-25] MEDS ORDERED: BENZONATATE 100 MG CAPSULE PO PRN (20:33)
[2018-06-25] MEDS ORDERED: HYDROcodone-APAP 5 MG -325 MG TABLET PO PRN (20:33)
[2018-06-25] MEDS ORDERED: ZOLPIDEM TARTRATE 12.5 MG PO PRN (20:33)
[2018-06-25] MEDS ORDERED: DOCUSATE 100 MG CAPSULE PO PRN (20:33)
[2018-06-25] MEDS ORDERED: ONDANSETRON 4 MG/2 ML VIAL IVP PRN (20:33)
[2018-06-25] MEDS ORDERED: LIDOCAINE W/ SODIUM BICARB 0.5 ML SYR SUBD PRN (20:33)
[2018-06-25] MEDS ORDERED: HYOSCYAMINE SULFATE 0.125 MG PO PRN (20:33)
[2018-06-25] MEDS ORDERED: CHOLECALCIFEROL 1000 IU TABLET PO SCH (21:00)
[2018-06-25] MEDS ORDERED: LORATADINE 10 MG TABLET PO SCH (21:00)
[2018-06-25] MEDS ORDERED: MELATONIN PO SCH (21:00)
[2018-06-25] MEDS ORDERED: Mirtazapine Tab 30 MG TAB PO SCH (21:15)
[2018-06-25] MEDS: Apixaban 5 MG TABLET PO SCH (21:19)
[2018-06-25] MEDS: Esomeprazole DR 20mg Capsule PO SCH (21:19)
[2018-06-25] MEDS: ASCORBIC ACID Chewable 500 MG TABLET PO SCH (21:19)
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
[2018-06-26] MEDS ORDERED: OMEPRAZOLE 40 MG CAPSULE PO SCH (06:30)
[2018-06-26 06:36] VITALS: BP 156/85; RESP 20; TEMP 98.4; O2SAT 95
[2018-06-26] MEDS ORDERED: MAGNESIUM OXIDE 500 MG PO SCH (09:00)
[2018-06-26] MEDS ORDERED: CHONDR SU A SOD PO SCH (09:00)
[2018-06-26] MEDS ORDERED: GLUCOSAMINE PO SCH (09:00)
[2018-06-26] MEDS ORDERED: MAGNESIUM OXIDE 400 MG TABLET PO SCH (09:00)
[2018-06-26] MEDS ORDERED: NIFEdipine 30 MG ER 24H TABLET PO SCH (09:00)
[2018-06-26] MEDS ORDERED: ATORVASTATIN 20 MG TABLET PO SCH (09:00)
[2018-06-26] MEDS ORDERED: FENOFIBRATE 145 MG TABLET PO SCH (09:00)
[2018-06-26] MEDS ORDERED: IRON CARBONYL 45 MG PO SCH (09:00)
[2018-06-26] MEDS ORDERED: ASPIRIN 81 MG (BABY) CHEWABLE TABLET PO SCH (09:00)
[2018-06-26] MEDS ORDERED: NIACIN 500 MG PO SCH (09:00)
[2018-06-26] MEDS ORDERED: FLUTICASONE PROPIONATE 16 GRAM (120 SPRAYS / BOTTLE) ENOS SCH (09:00)
[2018-06-26] MEDS ORDERED: Multivitamin Tab 1 TAB PO SCH (09:00)
[2018-06-26] MEDS ORDERED: RAMIPRIL 2.5 MG CAPSULE PO SCH (09:00)
[2018-06-26] MEDS: Apixaban 5 MG TABLET PO SCH (09:41)
[2018-06-26] MEDS: Esomeprazole DR 20mg Capsule PO SCH (09:41)
[2018-06-26] MEDS: ASCORBIC ACID Chewable 500 MG TABLET PO SCH (09:41)
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
[2018-06-26] MEDS ORDERED: EPINEPHrine Inj (1:1,000) 30mg/30ml vial ONE (11:26)
[2018-06-26] MEDS ORDERED: BUPivacaine Inj 0.5% PF (5mg/ml) 30ml vial ONE (11:26)
== END 2018-06-26 10:27 | disposition home or self-care (01) ==
LOC: ER 15:10 → MED/SURG 15:10
PROVIDERS: ADMIT Surgery; ATTEND Surgery